=== PATIENT | male | born 1970 | race Caucasian/White ===

== ENCOUNTER 2016-06-28 03:09 | Emergency (ER) | payer OTHER ==
[2016-06-28 03:15] VITALS: RESP 18
[2016-06-28] MEDS ORDERED: predniSONE 20 MG TAB PO STA (03:54)
[2016-06-28] MEDS ORDERED: HYDROcodone/APAP 5-325MG 1 EACH TAB PO STA (03:56)
[2016-06-28] MEDS ORDERED: IBUPROFEN 800 MG TAB PO STA (03:56)
--- NOTE | 2016-06-28 04:33 | ED ---
Extremity Problem HPI - General Chief complaint: Extremity Problem,Nontraumatic Stated complaint: arm pain/numbness Time Seen by Provider: 06/28/16 03:18 Source: patient Mode of arrival: ambulatory Limitations: no limitations - History of Present Illness Initial comments: This patient is 45-year-old man who presents for a reevaluation of his right elbow. The patient states that he had some swelling there developed over the past few days, and had an seen in clinic. He was told that he had bursitis of his elbow. He states that he had not received any treatment for this however. The patient states that yesterday at work he had been using a hammer drill and that this vibration seem to make his right elbow worse and now the range of motion is limited. He states that the swelling at the elbow has gone down, but the pain continues. MD Complaint: extremity swelling, joint paint -: days(s) Location: right, elbow Severity scale (1-10): 7 Quality: aching, constant Consistency: constant Improves with: nothing Worsens with: palpation, other (Work) Associated Symptoms: denies other symptoms - Related Data Home Medications Medication Instructions Recorded Confirmed Allopurinol [Zyloprim] 300 mg PO DAILY 06/28/16 06/28/16 Atenolol/Chlorthalidone 1 each PO DAILY 06/28/16 06/28/16 [Atenolol-Chlorthalidone 50-25] Indomethacin [Indocin] 50 mg PO TID PRN 06/28/16 06/28/16 Lisinopril 40 mg PO DAILY 06/28/16 06/28/16 Previous Rx's Medication Instructions Recorded Hydrocodone/Acetaminophen [[place] 1 each PO Q6HR PRN #20 tab 06/28/16 5-325] Ibuprofen [Motrin] 800 mg PO Q8HR PRN #20 tab 06/28/16 predniSONE 60 mg PO DAILY #30 tab 06/28/16 Allergies Allergy/AdvReac Type Severity Reaction Status Date / Time Penicillins Allergy Rash/Hives Verified 06/28/16 03:14 Review of Systems ROS Statement: Those systems with pertinent positive or pertinent negative responses have been documented in the HPI. ROS Other: All systems not noted in ROS Statement are negative. Constitutional: Denies: fever, chills, weakness Respiratory: Denies: cough, dyspnea Cardiovascular: Denies: chest pain, palpitations Musculoskeletal: Reports: arthralgia Skin: Denies: rash Neurological: Reports: paresthesias Past Medical History Past Medical History: Hyperlipidemia Additional Past Medical History / Comment(s): Gout History of Any Multi-Drug Resistant Organisms: None Reported Past Surgical History: Hernia Repair, Orthopedic Surgery Additional Past Surgical History / Comment(s): Right shoulder surgery Past Psychological History: No Psychological Hx Reported Smoking Status: Never smoker Past Alcohol Use History: None Reported Past Drug Use History: None Reported General Exam Limitations: no limitations General appearance: alert, in no apparent distress Respiratory exam: Present: normal lung sounds bilaterally. Absent: respiratory distress, wheezes, rales, rhonchi, stridor Cardiovascular Exam: Present: regular rate, normal rhythm, normal heart sounds. Absent: systolic murmur, diastolic murmur, rubs, gallop Right Shoulder Exam: Present: normal inspection, full ROM, other (Old surgical scar over the distal clavicle). Absent: tenderness, swelling, abrasion, laceration, ecchymosis, deformity, crepitus, dislocation, erythema, tenderness over AC joint Upper Arm exam: Present: normal inspection, full ROM Elbow exam: Present: tenderness, swelling, other (The patient does have some fluid in the right olecranon bursa. There is tenderness. There is some mild warmth but no real erythema.). Absent: full ROM (Patient has decreased flexion and extension of the elbow. He is able to rotate.), abrasion, laceration, ecchymosis, deformity, crepitus, dislocation, erythema, pain w/ pronation/ supination, tenderness over radial head Forearm Wrist exam: Present: normal inspection, full ROM. Absent: tenderness, swelling, abrasion, laceration, ecchymosis, deformity, crepitus, dislocation, erythema, tenderness over anatomical snuff box, pain with axial thumb loading Hand Wrist exam: Present: normal inspection, full ROM Neurological exam: Present: alert. Absent: motor sensory deficit Skin exam: Present: warm, dry, intact, normal color. Absent: rash Course Vital Signs 06/28/16 06/28/16 03:11 04:46 Temperature 97.7 F 98.1 F Pulse Rate 76 67 Respiratory 18 18 Rate Blood Pressure 195/103 162/98 O2 Sat by Pulse 97 98 Oximetry Medical Decision Making - Medical Decision Making Patient's 45-year-old man presenting for reevaluation of his right elbow pain. He does definitely have some right olecranon bursitis. I do have a concern for the patient's decreased range of motion at the right elbow. Given the decreased range of motion there is concern for possible early septic arthritis, however the patient does not have a fever. Given the overlying bursitis I am reluctant to attempt arthrocentesis. Patient will be given medication for the bursitis and [facility] morning to have a reassessment. I discussed return parameters, he will definitely return here should he have any worsening, including fever, erythema or warmth of the right elbow. Disposition Clinical Impression: Olecranon bursitis, Gout Disposition: HOME SELF-CARE Condition: Fair Instructions: Gout (ED), Elbow Bursitis (ED) Prescriptions: Hydrocodone/Acetaminophen [[place] 5-325] 1 each PO Q6HR PRN #20 tab PRN Reason: Pain Ibuprofen [Motrin] 800 mg PO Q8HR PRN #20 tab PRN Reason: Pain predniSONE 60 mg PO DAILY #30 tab Referrals: González Daniel DO [Primary Care Provider] - 1-2 days
[2016-06-28 04:47] VITALS: BP 162/98; PULSE 67; TEMP 98.1
== END 2016-06-28 04:47 | disposition home or self-care (01) ==
LOC: EC 03:09
DX: M70.21 Olecranon bursitis, right elbow (principal); Z79.899 Other long term (current) drug therapy; Z88.0 Allergy status to penicillin; Y93.89 Activity, other specified
CPT/HCPCS: 99282; J7512

== ENCOUNTER → 2016-06-28 | Outpatient (CLI) | payer OTHER ==
--- NOTE | 2016-06-29 10:02 | XR ---
Right elbow HISTORY: Right elbow pain and swelling 3 views of the right elbow No comparisons There is no fracture or dislocation. Bone mineralization, joint spaces and alignment are maintained. There may be an elbow joint effusion. IMPRESSION: Possible elbow joint effusion, consider elbow MRI
== END | disposition home or self-care (01) ==
LOC: RADXRYALE 15:16
PROVIDERS: ATTEND Physician Assistant Medical
DX: M25.521 Pain in right elbow (principal)

== ENCOUNTER 2017-02-05 08:13 | Day surgery (SDC) | payer BC, OTHER ==
[2017-02-01 09:13] VITALS: BMI 32.1
[~2017-02-05 08:13] MED LIST: DEXAMETHASONE SOD PHOSPHATE 10 MG/ML 1 ML VIAL IV ONE; HYDROmorphone 0.5 MG/0.5 ML SYRINGE IVP PRN; LACTATED RINGERS 1,000 ML IV SCH; MIDAZOLAM 2 MG/2 ML VIAL IV PRN; ONDANSETRON 4 MG/2 ML VIAL IVP ONE; Pre Op ABX Message 1 EACH MISC MISCELLANE ONE; SCOPOLAMINE 1.5MG/72HR PATCH TRANSDERM ONE
[2017-02-05] MEDS ORDERED: LIDOCAINE 1% 20 ML VIAL (10MG/ML) FOR IV START INTRADERMA ONE (08:58)
[2017-02-05] MEDS ORDERED: SODIUM CHLORIDE 0.9% 1,000 ML IV ONE ×2 (08:58→10:35)
[2017-02-05 09:24] LABS: Glucose,Whole Blood 92 mg/dL (75-99)
[2017-02-05] MEDS ORDERED: LIDOCAINE 1% INJ 10MG/ML (20 ML MDV) ONE (09:57)
[2017-02-05] MEDS ORDERED: SUCCINYLCHOLINE CHLORIDE VIAL 200 MG/10 ML VIAL IV ONE (09:57)
[2017-02-05] MEDS ORDERED: MIDAZOLAM 2 MG/2 ML VIAL ONE (09:57)
[2017-02-05] MEDS ORDERED: ePHEDrine SULFATE/0.9% NACL/PF 50 MG/5 ML SYRINGE IV ONE (09:57)
[2017-02-05] MEDS ORDERED: fentaNYL (PF) 50 MCG/ML 2 ML AMP ONE (09:57)
[2017-02-05] MEDS ORDERED: PROPOFOL 10 MG/ML 20 ML VIAL IV ONE (09:57)
[2017-02-05] MEDS ORDERED: SODIUM CHLORIDE 0.9% 50 ML with ceFAZolin 2,000 MG IV ONE ×2 (10:20)
[2017-02-05] MEDS ORDERED: LACTATED RINGERS 1,000 ML IV ONE (10:35)
[2017-02-05] MEDS ORDERED: BUPIVACAINE (PF) 0.5% 30 ML VIAL SQ ONE (10:38)
[2017-02-05 11:15] VITALS: TEMP 97
[2017-02-05] MEDS ORDERED: HYDROcodone/APAP 5-325MG 1 EACH TAB PO ONE ×2 (12:06→13:00)
[2017-02-05 12:25] VITALS: RESP 18
[2017-02-05 13:39] VITALS: BP 124/77; PULSE 77
--- NOTE | 2017-02-08 13:17 | OP ---
OPERATIVE REPORT DATE OF SERVICE: 02/05/2017 SURGEON: Damián Basurto Do PREOPERATIVE DIAGNOSIS:: Torn right medial meniscus, torn anterior horn of lateral meniscus, and degenerative joint disease of the Right knee. 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 ESTIMATED BLOOD LOSS:: SPECIMEN TAKEN:: PROCEDURE: The patient was taken to the operative suite and placed in supine position. General inhalation anesthesia was performed by the department of anesthesiology. A Betadine prep was carried out over the right knee, mid thigh to mid calf and was placed in the leg jacobs. trocars inserted and irrigation of the joint performed. The arthroscope was inserted into lateral anterior portal and direct visualization of the medial compartment was noted. There was minimal degenerative tear around the area of the medial meniscus. This was probe. There was evidence of moderate prolapse of this meniscus. The meniscal shaver was utilizing in dissection the peripheral tearing at this time. The medial compartment was inspected and had evidence of degenerative joint disease. Medial femoral condyle was noted. The area showed grade 2 to 3 chondromalacia. The area was shaved and smooth with the meniscal resector. Further inspection of the suprapatellar area was carried out on the border of the patella. Gentle shaving was carried out and appeared to be a grade 3 chondromalacia patellofemoral. Inspection of lateral meniscus revealed no evidence of tear with degenerative changes anteriorly. All instruments were removed following irrigation of the joint. Portal incisions were approximated with 3-0 Vicryl suture. Betadine, Adaptic and sterile pressure dressing was applied. The patient was transferred to the recovery room in satisfactory postop condition. GROSS PATHOLOGY: There is evidence of degenerative changes in both anterior horn of the lateral meniscus and portion of the right medial meniscus and grade 2 to 3 chondromalacia medial femoral condyle and patella femoral. MMODL / IJN: [id number] / MTDD
== END 2017-02-05 14:17 | disposition home or self-care (01) ==
LOC: OR 08:13
PROVIDERS: ATTEND Orthopaedic Surgery
DX: S83.241A Other tear of medial meniscus, current injury, right knee, initial encounter (principal); S83.281A Other tear of lateral meniscus, current injury, right knee, initial encounter; M17.11 Unilateral primary osteoarthritis, right knee; M22.41 Chondromalacia patellae, right knee; I10 Essential (primary) hypertension; Z79.899 Other long term (current) drug therapy; Z88.0 Allergy status to penicillin; W10.9XXA Fall (on) (from) unspecified stairs and steps, initial encounter
CPT/HCPCS: 29880; J2250; J0330; J1100; J2405; J2001; J3010; J0690; J2704

== ENCOUNTER 2019-06-16 08:27 | Day surgery (SDC) | payer BC, MEDICARE ==
[2019-06-12 16:06] VITALS: BMI 32.8
[~2019-06-16 08:27] MED LIST changes: -DEXAMETHASONE SOD PHOSPHATE 10 MG/ML 1 ML VIAL IV ONE; -HYDROmorphone 0.5 MG/0.5 ML SYRINGE IVP PRN; -MIDAZOLAM 2 MG/2 ML VIAL IV PRN; -ONDANSETRON 4 MG/2 ML VIAL IVP ONE; -Pre Op ABX Message 1 EACH MISC MISCELLANE ONE; -SCOPOLAMINE 1.5MG/72HR PATCH TRANSDERM ONE
[2019-06-16 08:55] VITALS: RESP 16; TEMP 96.7
[2019-06-16] MEDS ORDERED: LIDOCAINE 1% 20 ML VIAL (10MG/ML) FOR IV START INTRADERMA ONE (08:56)
[2019-06-16] MEDS ORDERED: KETOROLAC 30 MG/ML 1 ML VIAL ONE (09:08)
[2019-06-16] MEDS ORDERED: LIDOCAINE 1% INJ 10MG/ML (20 ML MDV) ONE (09:08)
[2019-06-16] MEDS ORDERED: PROPOFOL 10 MG/ML 20 ML VIAL IV ONE (09:08)
--- NOTE | 2019-06-16 09:27 | P.GSHP ---
History of Present Illness H&P Date: 06/16/19 Chief Complaint: Gastritis, screening colonoscopy Is a 48-year-old male who presents today for EGD and colonoscopy. Patient has had some epigastric pain. He is also presents for screening colonoscopy. He's never colonoscopy before. Past Medical History Past Medical History: Hyperlipidemia, Hypertension, Renal Disease Additional Past Medical History / Comment(s): Gout History of Any Multi-Drug Resistant Organisms: None Reported Past Surgical History: Hernia Repair, Orthopedic Surgery Additional Past Surgical History / Comment(s): Right shoulder surgery Past Anesthesia/Blood Transfusion Reactions: No Reported Reaction Smoking Status: Never smoker - Past Family History Father Family Medical History: Renal Disease Medications and Allergies Home Medications Medication Instructions Recorded Confirmed Type Acetaminophen [Tylenol Arthritis] 650 mg PO DAILY PRN 06/12/19 06/16/19 History Losartan-Hctz 50-12.5 mg [Hyzaar 1 tab PO DAILY 06/12/19 06/16/19 History 50-12.5] Naproxen Sodium [Aleve] 220 mg PO DAILY PRN 06/12/19 06/12/19 History Allergies Allergy/AdvReac Type Severity Reaction Status Date / Time lisinopril Allergy kidney Verified 06/16/19 08:55 damage Penicillins Allergy "doesnt do Verified 06/16/19 08:55 anything for me" Surgical - Exam Vital Signs Temp Pulse Resp BP Pulse Ox 96.7 F L 102 H 16 180/106 97 06/16/19 08:53 06/16/19 08:53 06/16/19 08:53 06/16/19 08:53 06/16/19 08:53 - General well developed, well nourished, no distress - Eyes PERRL - ENT normal pinna - Neck no masses - Respiratory normal expansion - Cardiovascular Rhythm: regular - Abdomen Abdomen: soft, non tender Assessment and Plan Assessment: Epigastric pain we'll perform EGD. Also perform initial screening colonoscopy.
--- NOTE | 2019-06-16 09:44 | P.OP ---
Date of Procedure: 06/16/19 Preoperative Diagnosis: Epigastric pain Screening colonoscopy Postoperative Diagnosis: Antral gastritis Esophagitis Hiatal hernia Procedure(s) Performed: EGD Colonoscopy Anesthesia: MAC Surgeon: Malachi Mercado Pathology: other (Antrum, esophagus) Condition: stable Disposition: PACU Description of Procedure: Patient's placed on the endoscopy table in the lateral position. He received IV sedation. The gastroscope placed oropharynx passed in the esophagus and into the stomach. Scope was placed through the pylorus. The first and second portion of the duodenum appeared normal. Scope was then brought back the antrum and this appeared mildly inflamed. Scope was then retroflexed and the remainder of the stomach appeared normal. There was a moderate size hiatal hernia. The GE junction was at 40 cm. The distal esophagus minimal inflamed a biopsies performed. The proximal esophagus appeared normal. Scope was withdrawn for patient. Next digital rectal exam was performed which revealed no rebound. Flexible clot scope was then placed patient anus passed throughout the entire colon. The ileocecal valve was visually is. The cecum, ascending and transverse colon appeared normal. In the descending and sigmoid colon there was diverticulosis. Scope was then brought back into the rectum and this appeared normal. Scope was withdrawn for patient.
[2019-06-16 10:01] VITALS: BP 123/87; PULSE 100
== END 2019-06-16 10:32 | disposition home or self-care (01) ==
LOC: ORWHC2ENDO 08:27
PROVIDERS: ATTEND Surgery
DX: Z12.11 Encounter for screening for malignant neoplasm of colon (principal); K57.30 Diverticulosis of large intestine without perforation or abscess without bleeding; K29.50 Unspecified chronic gastritis without bleeding; K21.0 Gastro-esophageal reflux disease with esophagitis; K44.9 Diaphragmatic hernia without obstruction or gangrene; I10 Essential (primary) hypertension; E78.5 Hyperlipidemia, unspecified; M10.9 Gout, unspecified; N28.9 Disorder of kidney and ureter, unspecified; M19.90 Unspecified osteoarthritis, unspecified site; Z79.899 Other long term (current) drug therapy; Z98.890 Other specified postprocedural states; Z88.0 Allergy status to penicillin; Z88.8 Allergy status to other drugs, medicaments and biological substances; Z84.1 Family history of disorders of kidney and ureter
CPT/HCPCS: 43239; 88305; G0121; J2001; J1885; J2704; 45378

== ENCOUNTER 2019-07-02 10:05 | Day surgery (SDC) | payer MEDICARE ==
[~2019-07-02 10:05] MED LIST changes: +DEXAMETHASONE SOD PHOSPHATE 10 MG/ML 1 ML VIAL IV ONE; +HEPARIN SODIUM,PORCINE 5,000 UNIT/ML 1 ML VIAL SQ ONE; -LACTATED RINGERS 1,000 ML IV SCH; +LIDOCAINE 1% 20 ML VIAL (10MG/ML) FOR IV START INTRADERMA PRN; +MIDAZOLAM 2 MG/2 ML VIAL IV PRN; +ONDANSETRON 4 MG/2 ML VIAL IVP ONE; +SCOPOLAMINE 1.5MG/72HR PATCH TRANSDERM ONE
[2019-07-02] MEDS: LACTATED RINGERS 1,000 ML IV SCH (11:00)
[2019-07-02 11:23] LABS: Calcium 9.7 mg/dL (8.4-10.2); Potassium 4.6 mmol/L (3.5-5.1)
--- NOTE | 2019-07-02 12:24 | P.GSHP ---
History of Present Illness H&P Date: 07/02/19 Chief Complaint: GERD Is a 48-year-old male referred from Dr. rubio. MThe patient has had long- standing problems with reflux esophagitis. The patient underwent recent EGD is found have evidence of esophagitis. Patient has been well informed on the pr ocedure of laparoscopic Fawad fundoplication. The patient is aware the risk of the conversion to the open procedure, risk of injury to the stomach, liver and spleen. The patient is also a risk of recurrent GERD and dysphagia symptoms. The patient understands there is a postoperative diet of full liquids for 2 weeks after surgery. Past Medical History Past Medical History: Hyperlipidemia, Hypertension, Renal Disease Additional Past Medical History / Comment(s): Gout, on steroid for neck pain- states woke up Sunday with stiff neck, "weak kidneys" History of Any Multi-Drug Resistant Organisms: None Reported Past Surgical History: Hernia Repair, Orthopedic Surgery Additional Past Surgical History / Comment(s): Right shoulder surgery, colon oscopy, arthroscopy rt knee surgery Past Anesthesia/Blood Transfusion Reactions: No Reported Reaction Additional Past Anesthesia/Blood Transfusion Reaction / Comment(s): on steroids for stiff neck-states can move neck ok Smoking Status: Never smoker - Past Family History Father Family Medical History: Renal Disease Medications and Allergies Home Medications Medication Instructions Recorded Confirmed Type Acetaminophen [Tylenol Arthritis] 650 mg PO DAILY PRN 06/12/19 07/02/19 History Losartan-Hctz 50-12.5 mg [Hyzaar 1 tab PO DAILY 06/12/19 07/02/19 History 50-12.5] Naproxen Sodium [Aleve] 220 mg PO DAILY PRN 06/12/19 07/02/19 History predniSONE [Deltasone] 20 mg PO TID 06/26/19 07/02/19 History Allergies Allergy/AdvReac Type Severity Reaction Status Date / Time lisinopril Allergy kidney Verified 07/02/19 10:42 damage Penicillins Allergy "doesnt do Verified 07/02/19 10:42 anything for me" Surgical - Exam Vital Signs Temp Pulse Resp BP Pulse Ox 98.0 F 98 17 160/106 96 07/02/19 10:48 07/02/19 10:48 07/02/19 10:48 07/02/19 10:48 02/26/20 10:48 - General well developed, well nourished, no distress - Eyes PERRL - ENT normal pinna - Neck no masses - Respiratory normal expansion - Cardiovascular Rhythm: regular - Abdomen Abdomen: soft, non tender Results - Labs 07/02/19 11:00 Abnormal Lab Results - Last 24 Hours (Table) 07/02/19 Range/Units 11:00 BUN 51 H (9-20) mg/dL Creatinine 2.71 H (0.66-1.25) mg/dL Diabetes panel 07/02/19 Range/Units 11:00 Sodium 140 (137-145) mmol/L Potassium 4.6 (3.5-5.1) mmol/L Chloride 106 (98-107) mmol/L Carbon Dioxide 23 (22-30) mmol/L BUN 51 H (9-20) mg/dL Creatinine 2.71 H (0.66-1.25) mg/dL Glucose 91 (74-99) mg/dL Calcium 9.7 (8.4-10.2) mg/dL Calcium panel 07/02/19 Range/Units 11:00 Calcium 9.7 (8.4-10.2) mg/dL Pituitary panel 07/02/19 Range/Units 11:00 Sodium 140 (137-145) mmol/L Potassium 4.6 (3.5-5.1) mmol/L Chloride 106 (98-107) mmol/L Carbon Dioxide 23 (22-30) mmol/L BUN 51 H (9-20) mg/dL Creatinine 2.71 H (0.66-1.25) mg/dL Glucose 91 (74-99) mg/dL Calcium 9.7 (8.4-10.2) mg/dL Adrenal panel 07/02/19 Range/Units 11:00 Sodium 140 (137-145) mmol/L Potassium 4.6 (3.5-5.1) mmol/L Chloride 106 (98-107) mmol/L Carbon Dioxide 23 (22-30) mmol/L BUN 51 H (9-20) mg/dL Creatinine 2.71 H (0.66-1.25) mg/dL Glucose 91 (74-99) mg/dL Calcium 9.7 (8.4-10.2) mg/dL Assessment and Plan Assessment: GERD. We'll perform laparoscopic Fawad fundal plication.
[2019-07-02] MEDS ORDERED: ROCURONIUM BROMIDE 10 MG/ML 5 ML VIAL IV ONE (12:35)
[2019-07-02] MEDS ORDERED: fentaNYL (PF) 50 MCG/ML 2 ML AMP ONE (12:35)
[2019-07-02] MEDS ORDERED: SUCCINYLCHOLINE CHLORIDE 100 MG/5 ML SYR IV ONE (12:35)
[2019-07-02] MEDS ORDERED: NEOSTIGMINE 1 MG/ML 10 ML VIAL ONE (12:35)
[2019-07-02] MEDS ORDERED: KETOROLAC 30 MG/ML 1 ML VIAL ONE (12:35)
[2019-07-02] MEDS ORDERED: MIDAZOLAM 2 MG/2 ML VIAL ONE (12:35)
[2019-07-02] MEDS ORDERED: GLYCOPYRROLATE 0.2 MG/ML 2 ML VIAL ONE (12:35)
[2019-07-02] MEDS ORDERED: LIDOCAINE 1% INJ 10MG/ML (20 ML MDV) ONE (12:35)
[2019-07-02] MEDS ORDERED: PROPOFOL 10 MG/ML 20 ML VIAL IV ONE (12:35)
[2019-07-02] MEDS ORDERED: ePHEDrine SULFATE/0.9% NACL/PF 50 MG/5 ML SYRINGE IV ONE (12:35)
[2019-07-02] MEDS ORDERED: BUPIVACAINE (PF) 0.25% 30 ML VIAL SQ ONE (12:39)
[2019-07-02] MEDS ORDERED: LACTATED RINGERS 1,000 ML IV ONE (12:55)
[2019-07-02] MEDS ORDERED: ONDANSETRON 4 MG/2 ML VIAL IVP PRN (13:40)
--- NOTE | 2019-07-02 13:40 | P.OP ---
Date of Procedure: 07/02/19 Preoperative Diagnosis: GERD Postoperative Diagnosis: GERD Procedure(s) Performed: Laparoscopic Fawad fundoplication Anesthesia: YNES Surgeon: Malachi Mercado Estimated Blood Loss (ml): 5 Pathology: none sent Condition: stable Disposition: PACU Description of Procedure: HThe patient was placed on the operating table in the supine position. The patient received general anesthesia. And was placed in dorsal lithotomy position. The patient was prepped and draped in the usual sterile fashion. The skin incision sites were anesthetized with 1% local Xylocaine. The skin was incised in the left periumbilical area and then using a blade less 5 mm trocar under direct visualization panel cavity was entered. After adequate insufflation the laparoscope was then placed into the peritoneal cavity. Next a 5 mm trochars placed in the right epigastric position. Another 5 millimeter trocar the right lateral position. Another 5 millimeter trocar in the left lateral position a 5 mm trocar is placed in the left epigastric position. And then the initial 5 mm trocar was exchanged for a 10 mm trocar. The left lateral lobe liver was retracted. The hernia was seen. The crural defect was then dissected using the Harmonic scissors device. A 360 crural dissection was performed the esophagus stomach was reduced back into the peritoneal Cavity. The crural defect was then closed using 2-0 Ethibond suture. Next the fundus of the stomach was mobilized using the [place] scissors device. and then a 58- Irish bougie dilator was placed oropharynx passed into the esophagus and stomach the fundal plication wrap was then performed by grasping the fundus posteriorly and bringing it around the esophagus and stomach fundoplication was then performed using 2-0 Ethibond suture. Care was taken that the fundal location rested over top of the intra-abdominal esophagus. There was no injury seen to the stomach or esophagus. The dilator was then withdrawn. The abdomen was irrigated there is no bleeding seen. The trochars were then withdrawn and then skin incision sites were closed using 3-0 Monocryl suture Steri-Strips are applied. Patient thought procedure well and sent to recovery room in stable condition.
[2019-07-02] MEDS ORDERED: hydrALAZINE HCL 20 MG/ML 1 ML VIAL IVP PRN (14:03)
[2019-07-02] MEDS: HYDROmorphone 0.5 MG/0.5 ML SYRINGE IVP PRN ×2 (14:14→14:22)
[2019-07-02] MEDS ORDERED: LOSARTAN-HCTZ 50-12.5 MG 1 EACH TAB PO SCH (14:15)
[2019-07-02] MEDS: D5-0.45% NACL WITH KCL 20MEQ/L 1,000 ML IV SCH ×2 (16:05→21:59)
--- NOTE | 2019-07-02 16:42 | FL ---
EXAMINATION TYPE: FL esophagus cervic/pharynx DATE OF EXAM: 07/02/2019 LIMITED UGI-ESOPHAGRAM: CLINICAL HISTORY: Post Charanjit fundoplication. TECHNIQUE: Fluoroscopy time: 58 seconds Images: 20 FINDINGS: No extravasation of contrast is evident. There is moderate approaching severe hesitancy pas sing through the Charanjit fundoplication. There is complete emptying of the esophagus. The contrast ext ends into the stomach. A small amount of free air is identified on the overhead radiograph under the right diaphragm. Free a ir is not otherwise identified on fluoroscopy. IMPRESSION: No evidence of leak status post Charanjit fundoplication surgery earlier today. There is moderate severe narrowing of the distal esophagus through the Charanjit fundoplication during t his exam.
[2019-07-02] MEDS: HYDROmorphone 1 MG/ML 1 ML SYRINGE IVP PRN (17:18)
[2019-07-02] MEDS: predniSONE 20 MG TAB PO SCH (21:59)
[2019-07-03] MEDS: D5-0.45% NACL WITH KCL 20MEQ/L 1,000 ML IV SCH (05:38)
[2019-07-03] MEDS: HYDROmorphone 1 MG/ML 1 ML SYRINGE IVP PRN (05:44)
[2019-07-03] MEDS ORDERED: ENOXAPARIN 30 MG/0.3 ML SYRINGE SQ SCH (09:00)
[2019-07-03] MEDS: LACTATED RINGERS 1,000 ML IV SCH (09:02)
[2019-07-03] MEDS: predniSONE 20 MG TAB PO SCH (09:07)
[2019-07-03 09:12] VITALS: BP 155/99; PULSE 106; RESP 17; TEMP 97.5
--- NOTE | 2019-07-03 12:52 | P.DS ---
Providers Expected date of discharge: 07/03/19 Attending physician: Malachi Mercado Consults: 07/02/19 13:40 Consult Physician Routine Consulting Provider: Jacques Skinner Consult Reason/Comments: Medical management Do you want consulting provider notified?: Yes Primary care physician: Domenico De La Torre [facility] Course: 48-year-old male who underwent laparoscopic Fawad fundoplication with Dr. Maurizio leonard on 07/02/2019. Patient is doing well postoperatively without any immediate complications. Postoperative esophagram completed negative for leak or obstruction. Patient is tolerating liquid diet. Pain control on oral medications. Vital signs are stable. He is stable for discharge home today. Please see EMR for further hospital course details. Discharge Diagnosis 1. GERD, status post laparoscopic Fawad fundoplication Nurse practitioner note has been reviewed by physician. Signing provider agrees with the documented findings, assessment, and plan of care. Patient Condition at Discharge: Stable Plan - Discharge Summary Discharge Rx Participant: Yes New Discharge Prescriptions: New Hydrocodone/Acetaminophen [[place] 5-325] 1 tab PO Q6HR PRN #10 tab PRN Reason: Pain No Action Naproxen Sodium [Aleve] 220 mg PO DAILY PRN PRN Reason: Pain Acetaminophen [Tylenol Arthritis] 650 mg PO DAILY PRN PRN Reason: Pain Losartan-Hctz 50-12.5 mg [Hyzaar 50-12.5] 1 tab PO DAILY predniSONE [Deltasone] 20 mg PO TID Discharge Medication List Acetaminophen [Tylenol Arthritis] 650 mg PO DAILY PRN 06/12/19 [History] Losartan-Hctz 50-12.5 mg [Hyzaar 50-12.5] 1 tab PO DAILY 06/12/19 [History] Naproxen Sodium [Aleve] 220 mg PO DAILY PRN 06/12/19 [History] predniSONE [Deltasone] 20 mg PO TID 06/26/19 [History] Hydrocodone/Acetaminophen [[place] 5-325] 1 tab PO Q6HR PRN #10 tab 07/03/19 [Rx] Follow up Appointment(s)/Referral(s): Karla Fitzpatrick MD [STAFF PHYSICIAN] - 1 Week Domenico De La Torre DO [Primary Care Provider] - 1 Week Malachi Mercado MD [STAFF PHYSICIAN] - 2 Weeks Activity/Diet/Wound Care/Special Instructions: No driving while taking [place] No lifting over 10 pounds You may shower. No soaking or tub baths Very light activity until you are reevaluated at your follow up appointment with your surgeon Full liquid/soft diet for 2 weeks
[2019-07-03] MEDS ORDERED: HYDROcodone/APAP 5-325MG 1 EACH TAB PO PRN (13:34)
--- NOTE | 2019-07-03 14:08 | P.CONS ---
History of Present Illness - Reason for Consult Consult date: 07/03/19 Medical management - History of Present Illness This is a 48-year-old male patient of Dr. Moore with past medical history of hyperlipidemia, hypertension, chronic kidney disease stage III seen in the past by Dr. Fitzpatrick, gout. Patient states that he has been seen by Dr. Fitzpatrick in the past. Kidney disease without to be related to pain medications possibly from hypertension. Patient has been brought in the hospital under the care of Dr. Mercado status post Fawad fundoplication, postop day #1. Patient has had no postop complications. He denies any significant pain. He denies lightheadedness or dizziness, no nausea or vomiting. Patient underwent esophagram that showed no evidence of leak. There is moderate severe narrowing of the distal esophagus. The patient states he is scheduled for discharge home today. Discussed patient's chronic kidney disease with the patient and instructed to use caution utilizing prednisone, naproxen and blood pressure medicine. Patient advised to return to see Dr. Fitzpatrick. Patient states that he has only been on blood pressure medication for one month. Review of Systems Constitutional: Denies anorexia, Denies chills, Denies fatigue, Denies fever, Denies lethargy, Denies malaise, Denies poor appetite, Denies weight loss Eyes: denies blurred vision, denies pain Ears, nose, mouth and throat: Denies dysphagia, Denies headache, Denies nasal congestion, Denies nasal discharge, Denies sore throat, Denies vertigo Cardiovascular: Denies chest pain, Denies leg edema, Denies lightheadedness, Denies shortness of breath, Denies syncope Respiratory: Denies cough, Denies cough with sputum, Denies dyspnea, Denies excessive sputum, Denies hemoptysis, Denies home oxygen, Denies respiratory infections, Denies wheezing Gastrointestinal: Denies abdominal pain, Denies diarrhea, Denies loss of appetite, Denies nausea, Denies vomiting Genitourinary: Denies dysuria, Denies urinary frequency, Denies urinary retention Musculoskeletal: Denies frequent falls, Denies gait dysfunction, Denies muscle weakness, Denies myalgias Integumentary: Denies pruritus, Denies rash, Denies wounds Neurological: Denies change in mentation, Denies change in speech, Denies numbness, Denies weakness Psychiatric: Denies anxiety, Denies depression Endocrine: Denies fatigue, Denies weight change Past Medical History Past Medical History: Hyperlipidemia, Hypertension, Renal Disease Additional Past Medical History / Comment(s): Gout, on steroid for neck pain- states woke up Sunday with stiff neck, "weak kidneys" History of Any Multi-Drug Resistant Organisms: None Reported Past Surgical History: Hernia Repair, Orthopedic Surgery Additional Past Surgical History / Comment(s): Right shoulder surgery, colonoscopy, arthroscopy rt knee surgery, Fawad fundoplication Past Anesthesia/Blood Transfusion Reactions: No Reported Reaction Additional Past Anesthesia/Blood Transfusion Reaction / Comm: on steroids for stiff neck-states can move neck ok Past Psychological History: No Psychological Hx Reported Smoking Status: Never smoker Past Alcohol Use History: Rare Additional Past Alcohol Use History / Comment(s): The patient is a lifelong nonsmoker. No marijuana use, occasional alcohol use. Patient is single. 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 Past Drug Use History: None Reported - Past Family History Father Family Medical History: Renal Disease Additional Family Medical History / Comment(s): Father at age 70 from a bowel aortic aneurysm rupture. He does have a history of kidney disease and was on dialysis. Mother Additional Family Medical History / Comment(s): Mother is alive with no major medical problems. Sister(s) Additional Family Medical History / Comment(s): Patient has one sister with history of hypertension. Patient does not have any brothers. Patient has 3 children with no major medical problems. Medications and Allergies Home Medications Medication Instructions Recorded Confirmed Type Acetaminophen [Tylenol Arthritis] 650 mg PO DAILY PRN 06/12/19 07/02/19 History Losartan-Hctz 50-12.5 mg [Hyzaar 1 tab PO DAILY 06/12/19 07/02/19 History 50-12.5] Naproxen Sodium [Aleve] 220 mg PO DAILY PRN 06/12/19 07/02/19 History predniSONE [Deltasone] 20 mg PO TID 06/26/19 07/02/19 History Hydrocodone/Acetaminophen [[place] 1 tab PO Q6HR PRN #10 tab 07/03/19 Rx 5-325] Allergies Allergy/AdvReac Type Severity Reaction Status Date / Time lisinopril Allergy kidney Verified 07/02/19 10:42 damage Penicillins Allergy "doesnt do Verified 07/02/19 10:42 anything for me" Physical Exam Vitals: Vital Signs Temp Pulse Resp BP Pulse Ox 07/03/19 07:30 97.5 F L 106 H 17 155/99 94 L 07/03/19 00:38 98.1 F 116 H 16 158/107 95 07/02/19 19:06 97.9 F 105 H 16 115/70 92 L 07/02/19 17:05 78 151/94 95 07/02/19 15:35 90 153/97 93 L 07/02/19 15:20 81 135/90 93 L 07/02/19 14:50 97.8 F 79 162/95 94 L 07/02/19 14:31 85 16 151/90 96 07/02/19 14:16 76 16 154/92 97 07/02/19 14:01 74 16 150/83 98 Intake and Output 07/02/19 07/03/19 07/03/19 22:59 06:59 14:59 Intake Total 75 Balance 75 Intake: Oral 75 Gen: This is a 48-year-old male. Patient is resting in bed and appears to be comfortable and in no acute distress. HEENT: Head is atraumatic, normocephalic. Pupils equal, round. Sclerae is anicteric. NECK: Supple. No JVD. No lymphadenopathy. No thyromegaly. LUNGS: Clear to auscultation. No wheezes or rhonchi. No intercostal retractions. HEART: Regular rate and rhythm. No murmur. ABDOMEN: Soft. Bowel sounds are present. No masses. No tenderness. A puncture sites show no significant sign of infection, drainage. EXTREMITIES: No pedal edema. No calf tenderness. Dorsalis pedis palpable bilaterally. NEUROLOGICAL: Patient is awake, alert and oriented x3. Cranial nerves 2 through 12 are grossly intact. Results CBC & Chem 7: 07/02/19 11:00 Assessment and Plan Plan: 1. Moderate hiatal hernia status post Fawad fundoplication. Continue current pain management. 2. Hypertension. Patient is currently on Hyzaar. 3. Hyperlipidemia. 4. Chronic gout. Patient takes naproxen and prednisone as needed. 5. Chronic kidney disease stage III. Patient has been instructed to follow-up with Dr. Fitzpatrick. Patient has been instructed to be careful using his current medications as these will affect his kidneys. Discharge plan: home Impression and plan of care have been directed as dictated by the signing physician. Alison Nieves nurse practitioner acting as scribe for signing physician.
[2019-07-03 14:27] VITALS: BMI 33.1
== END 2019-07-03 14:13 | disposition home or self-care (01) ==
LOC: OR 10:05 → 4SSUR 13:58 → OR 07-03 14:13
PROVIDERS: ATTEND Surgery
DX: K21.0 Gastro-esophageal reflux disease with esophagitis (principal); K22.2 Esophageal obstruction; K44.9 Diaphragmatic hernia without obstruction or gangrene; E78.5 Hyperlipidemia, unspecified; I12.9 Hypertensive chronic kidney disease with stage 1 through stage 4 chronic kidney disease, or unspecified chronic kidney disease; N18.3 Chronic kidney disease, stage 3 (moderate); M1A.9XX0 Chronic gout, unspecified, without tophus (tophi); Z98.890 Other specified postprocedural states; Z84.1 Family history of disorders of kidney and ureter; Z79.52 Long term (current) use of systemic steroids; Z79.899 Other long term (current) drug therapy; Z88.0 Allergy status to penicillin; Z88.8 Allergy status to other drugs, medicaments and biological substances; Z82.49 Family history of ischemic heart disease and other diseases of the circulatory system
CPT/HCPCS: 86900; 86901; 80048; 86850; 74210; 43280; J2250; J1644; J1100; J2710; J0690; J2405; J2001; J3010; J1885; J1650; J1170 ×3; J0330; J2704; J7512 ×2; Q9967

== ENCOUNTER 2019-07-09 16:54 | Emergency (ER) | payer MEDICARE ==
[2019-07-09 17:00] VITALS: RESP 18
[2019-07-09 17:36] LABS: Amorphous Sediment,Urine Rare /hpf; Appearance,Urine Cloudy (Clear); Bacteria,Urine Occasional /hpf; Bilirubin,Urine Negative (Negative); Blood,Urine Moderate (Negative); Budding Yeast,Urine Few /hpf; Color,Urine Yellow; Glucose,Urine (UA) Negative (Negative); Hyaline Casts,Urine 3 /lpf (0-2); Ketones,Urine Negative (Negative); Leukocyte Esterase,Urine Trace (Negative); Mucus,Urine Rare /hpf; Nitrite,Urine Negative (Negative); PH, Urine 5.5 (5.0-8.0); Protein,Urine 2+ (Negative); RBC,Urine 33 /hpf (0-5); Specific Gravity,Urine 1.014 (1.001-1.035); Squamous Epithelial Cell,Urine <1 /hpf (0-4); Urobilinogen,Urine <2.0 mg/dL (<2.0); WBC,Urine 22 /hpf (0-5)
[2019-07-09] MEDS ORDERED: SODIUM CHLORIDE 0.9% 500 ML 500 ML IV ONE (17:57)
[2019-07-09 19:04] LABS: Basophils % (A) 0 %; Eosinophils # (A) 0.3 k/uL (0-0.7); Eosinophils % (A) 2 %; HCT 46.7 % (39.0-53.0); HGB 15.1 gm/dL (13.0-17.5); Lymphocytes # (A) 2.8 k/uL (1.0-4.8); Lymphocytes % (A) 16 %; MCH 27.3 pg (25.0-35.0); MCHC 32.4 g/dL (31.0-37.0); MCV 84.4 fL (80.0-100.0); Mean Platelet Volume 7.8; Monocytes # (A) 1.1 k/uL (0-1.0); Monocytes % (A) 6 %; Neutrophils # (A) 12.7 k/uL (1.3-7.7); Neutrophils % (A) 74 %; Platelet Count 337 k/uL (150-450); RBC 5.53 m/uL (4.30-5.90); RDW 13.8 % (11.5-15.5); WBC 17.2 k/uL (3.8-10.6)
--- NOTE | 2019-07-09 19:06 | ED ---
General Adult HPI - General Chief complaint: Abdominal Pain Stated complaint: blood in urine Time Seen by Provider: 07/09/19 17:12 Source: patient, RN notes reviewed, old records reviewed Mode of arrival: ambulatory Limitations: no limitations - History of Present Illness Initial comments: 48-year-old male patient past history significant for hypertension hyperlipidemia chronic kidney disease presents to ED for chief complaint of hematuria. Patient reports he did have a hiatal hernia repair done one week ago by Dr. Estrella. Patient reports that he has been having abdominal pain since. Reports that today he noticed his urine was dark with blood. Denies any other complaints at this time. Systemic: Pt denies fatigue, fever/chills, rash. Pt denies weakness, night sweats, weight loss. Neuro: Pt denies headache, visual disturbances, syncope or pre-syncope. HEENT: Pt denies ocular discharge or irritation, otalgia, rhinorrhea, pharyngitis or notable lymphadenopathy. Cardiopulmonary: Pt denies chest pain, SOB, heart palpitations, dyspnea on e xertion. Abdominal/GI: Pt denies n/v/d. : Pt denies dysuria, burning w/ urination, frequency/urgency. Denies new onset urinary or bowel incontinence. MSK: Pt denies myalgia, loss of strength or function in extremities. Neuro: Pt denies new onset weakness, paresthesias. - Related Data Home Medications Medication Instructions Recorded Confirmed Acetaminophen [Tylenol Arthritis] 650 mg PO DAILY PRN 06/12/19 07/02/19 Losartan-Hctz 50-12.5 mg [Hyzaar 1 tab PO DAILY 06/12/19 07/02/19 50-12.5] Naproxen Sodium [Aleve] 220 mg PO DAILY PRN 06/12/19 07/02/19 predniSONE [Deltasone] 20 mg PO TID 06/26/19 07/02/19 Previous Rx's Medication Instructions Recorded Hydrocodone/Acetaminophen [[place] 1 tab PO Q6HR PRN #10 tab 07/03/19 5-325] Cephalexin [Keflex] 500 mg PO Q12HR 7 Days #14 cap 07/09/19 Allergies Allergy/AdvReac Type Severity Reaction Status Date / Time lisinopril Allergy kidney Verified 07/09/19 17:00 damage Penicillins Allergy "doesnt do Verified 07/09/19 17:00 anything for me" Review of Systems ROS Statement: Those systems with pertinent positive or pertinent negative responses have been documented in the HPI. ROS Other: All systems not noted in ROS Statement are negative. Past Medical History Past Medical History: Hyperlipidemia, Hypertension, Renal Disease Additional Past Medical History / Comment(s): Gout, on steroid for neck pain- states woke up Sunday with stiff neck, "weak kidneys" History of Any Multi-Drug Resistant Organisms: None Reported Past Surgical History: Hernia Repair, Orthopedic Surgery Additional Past Surgical History / Comment(s): Right shoulder surgery, colonoscopy, arthroscopy rt knee surgery, Fawad fundoplication, Past Anesthesia/Blood Transfusion Reactions: No Reported Reaction Additional Past Anesthesia/Blood Transfusion Reaction / Comment(s): on steroids for stiff neck-states can move neck ok Past Psychological History: No Psychological Hx Reported Smoking Status: Never smoker Past Alcohol Use History: Rare Past Drug Use History: None Reported - Past Family History Father Family Medical History: Renal Disease Additional Family Medical History / Comment(s): Father at age 70 from a bowel aortic aneurysm rupture. He does have a history of kidney disease and was on dialysis. Mother Additional Family Medical History / Comment(s): Mother is alive with no major medical problems. Sister(s) Additional Family Medical History / Comment(s): Patient has one sister with history of hypertension. Patient does not have any brothers. Patient has 3 children with no major medical problems. General Exam - General Exam Comments Initial Comments: Constitutional: NAD, AOX3, Pt has pleasant affect. HEENT: NC/AT, trachea midline, neck supple, no lymphadenopathy. Posterior pharynx non erythematous, without exudates. External ears appear normal, without discharge. Mucous membranes moist. Eyes PERRLA, EOM intact. There is no scleral icterus. No pallor noted. Cardiopulmonary: RRR, no murmurs, rubs or gallops, no JVD noted. Lungs CTAB in anterior and posterior yeh. No peripheral edema. Abdominal exam: Abdomen soft and non-distended. Abdomen tender epigastric, right periumbilical region. Incision sites are clean dry without erythema or drainage.. Bowel sounds active in LLQ. No hepatosplenomegaly. No ecchymosis Neuro: CN II-XII grossly intact. No nuchal rigidity. No raccon eyes, no laura sign, no hemotympanum. No cervical spinal tenderness. MSK: No posterior calf tenderness bilaterally, homans sign negative bilaterally. Posterior tibialis and radial pulse +2 bilaterally. Sensation intact in upper and lower extremities. Full active ROM in upper and lower extremities, 5/5 stregnth. Limitations: no limitations Course Vital Signs 07/09/19 16:57 Temperature 97.8 F Pulse Rate 106 H Respiratory 18 Rate Blood Pressure 153/101 O2 Sat by Pulse 98 Oximetry Medical Decision Making - Medical Decision Making 48-year-old male patient past history significant for hypertension hyperlipidemia chronic kidney disease presents to ED for chief complaint of hematuria. Patient reports he did have a hiatal hernia repair done one week ago by Dr. Estrella. Patient reports that he has been having abdominal pain since. Reports that today he noticed his urine was dark with blood. Denies any other complaints at this time. Patient vital signs are stable, afebrile. Physical exam displayed: Abdomen soft and non-distended. Abdomen tender epigastric, right periumbilical region. Incision sites are clean dry without erythema or drainage. Liver investigations reveal leukocytosis of 17.2 likely reactive to recent surgery. Creatinine 2.69, BUN 46. Patient was administered fluid bolus. UA displayed +2 protein, 33 red blood cells, 22 white blood cells, occasional bacteria is noted. Patient will be treated for urinary tract infection. CT abdomen and pelvis without contrast was obtained due to the patient's kidney function, this displayed sigmoid diverticulosis without diverticulitis. Normal appendix, numerous renal cortical cysts, recommended outpatient ultrasound to rule out solid renal mass. Patient will be discharged with follow-up with Dr. Mojica tomorrow and will follow up with primary care provider. Will have outpatient ultrasound of kidneys return to ER if condition worsens. Case discussed with Dr. Padilla. - Lab Data Result diagrams: 07/09/19 18:47 07/09/19 18:47 Lab Results 07/09/19 07/09/19 07/09/19 Range/Units 17:04 18:47 18:47 WBC 17.2 H (3.8-10.6) k/uL RBC 5.53 (4.30-5.90) m/uL Hgb 15.1 (13.0-17.5) gm/dL Hct 46.7 (39.0-53.0) % MCV 84.4 (80.0-100.0) fL MCH 27.3 (25.0-35.0) pg MCHC 32.4 (31.0-37.0) g/dL RDW 13.8 (11.5-15.5) % Plt Count 337 (150-450) k/uL Neutrophils % 74 % Lymphocytes % 16 % Monocytes % 6 % Eosinophils % 2 % Basophils % 0 % Neutrophils # 12.7 H (1.3-7.7) k/uL Lymphocytes # 2.8 (1.0-4.8) k/uL Monocytes # 1.1 H (0-1.0) k/uL Eosinophils # 0.3 (0-0.7) k/uL Basophils # 0.0 (0-0.2) k/uL Sodium 137 (137-145) mmol/L Potassium 4.6 (3.5-5.1) mmol/L Chloride 106 (98-107) mmol/L Carbon Dioxide 23 (22-30) mmol/L Anion Gap 8 mmol/L BUN 46 H (9-20) mg/dL Creatinine 2.69 H (0.66-1.25) mg/dL Est GFR (CKD-EPI)AfAm 31 (>60 ml/min/1.73 sqM) Est GFR (CKD-EPI)NonAf 27 (>60 ml/min/1.73 sqM) Glucose 104 H (74-99) mg/dL Calcium 9.0 (8.4-10.2) mg/dL Total Bilirubin 0.3 (0.2-1.3) mg/dL AST 24 (17-59) U/L ALT 19 (4-49) U/L Alkaline Phosphatase 90 (38-126) U/L Total Protein 7.3 (6.3-8.2) g/dL Albumin 4.1 (3.5-5.0) g/dL Urine Color Yellow Urine Appearance Cloudy (Clear) Urine pH 5.5 (5.0-8.0) Ur Specific [place] 1.014 (1.001-1.035) Urine Protein 2+ H (Negative) Urine Glucose (UA) Negative (Negative) Urine Ketones Negative (Negative) Urine Blood Moderate H (Negative) Urine Nitrite Negative (Negative) Urine Bilirubin Negative (Negative) Urine Urobilinogen <2.0 (<2.0) mg/dL Ur Leukocyte Esterase Trace H (Negative) Urine RBC 33 H (0-5) /hpf Urine WBC 22 H (0-5) /hpf Ur Squamous Epith Cells <1 (0-4) /hpf Amorphous Sediment Rare H (None) /hpf Urine Bacteria Occasional H (None) /hpf Hyaline Casts 3 H (0-2) /lpf Urine Mucus Rare H (None) /hpf Urine Yeast (Budding) Few H (None) /hpf Disposition Clinical Impression: UTI (urinary tract infection), Hematuria, Postoperative abdominal pain Disposition: HOME SELF-CARE Condition: Stable Instructions (If sedation given, give patient instructions): Abdominal Pain ( ED), Hematuria (ED) Additional Instructions: Follow-up with Dr. Estrella tomorrow. Take antibiotics as directed. Follow-up with primary care provider tomorrow as well to have an outpatient ultrasound of the kidneys performed. Return to ER if condition worsens in any way. Prescriptions: Cephalexin [Keflex] 500 mg PO Q12HR 7 Days #14 cap Is patient prescribed a controlled substance at d/c from ED?: No Referrals: Domenico De La Torre DO [Primary Care Provider] - 1-2 days Malachi Mercado MD [STAFF PHYSICIAN] - 1-2 days
[2019-07-09 19:10] LABS: Albumin 4.1 g/dL (3.5-5.0); Potassium 4.6 mmol/L (3.5-5.1); Total Bilirubin 0.3 mg/dL (0.2-1.3); Total Protein 7.3 g/dL (6.3-8.2)
--- NOTE | 2019-07-09 19:26 | CT ---
EXAMINATION TYPE: CT abdomen pelvis wo con DATE OF EXAM: 07/09/2019 COMPARISON: None HISTORY: hematuria, post-op hernia repair CT DLP: 981.2 mGycm Automated exposure control for dose reduction was used. Lung bases are clear. There is no pleural effusion. Heart appears enlarged. There is no pericardial e ffusion. Liver spleen stomach gallbladder pancreas appear normal. Bile ducts are not dilated. There is no adrenal mass. There are numerous cysts in both kidneys that measure up to 2 cm. There is a single 4 cm cortical cyst lower pole right kidney. Some of the cysts have higher attenuation. There is no hydronephrosis. There is minimal renal parenchymal calcification. There is no retroperitoneal adenopathy. Ureters are not dilated. Bladder distends smoothly. There are multiple sigmoid diverticula. There is no diverticulitis. There is some high density material at the tip of the appendix. There is no sign of thickened appendix. The re is no sign of appendicitis. There is no mesenteric edema. There is no ascites or free air. There i s no evidence of bowel obstruction. There is no inguinal hernia. Lumbar vertebra have normal alignment. Bony pelvis is intact. There is no lumbar compression fracture . IMPRESSION: Sigmoid diverticulosis without diverticulitis. Normal appendix. Numerous renal cortical cysts. Some o f the cysts or atypical and ultrasound would be helpful to exclude a solid renal mass.
[2019-07-09] MEDS ORDERED: cefTRIAXone IN SWFI 1,000 MG/10 ML SYRINGE IVP STA (19:32)
[2019-07-09] MEDS ORDERED: CEPHALEXIN 500MG STARTER PACK 4 CAP BTL PO STA (20:05)
[2019-07-09] MEDS ORDERED: ACET/COD 300 MG/30 MG STARTER PACK 6 TAB BTL PO STA (20:13)
[2019-07-09 20:19] VITALS: BP 152/78; PULSE 83; TEMP 98.2
== END 2019-07-09 20:15 | disposition home or self-care (01) ==
LOC: EC 16:54
DX: N39.0 Urinary tract infection, site not specified (principal); G89.18 Other acute postprocedural pain; R10.9 Unspecified abdominal pain; K57.30 Diverticulosis of large intestine without perforation or abscess without bleeding; N28.1 Cyst of kidney, acquired; I12.9 Hypertensive chronic kidney disease with stage 1 through stage 4 chronic kidney disease, or unspecified chronic kidney disease; N18.9 Chronic kidney disease, unspecified; E78.5 Hyperlipidemia, unspecified; M10.9 Gout, unspecified; Z79.52 Long term (current) use of systemic steroids; Z79.899 Other long term (current) drug therapy; Z88.8 Allergy status to other drugs, medicaments and biological substances; Z88.0 Allergy status to penicillin; Z98.890 Other specified postprocedural states; Z87.19 Personal history of other diseases of the digestive system
CPT/HCPCS: 36415; 80053; 85025; 81001; 87086; 74176; 96374; 99284; J0696

== ENCOUNTER → 2022-01-11 | Outpatient (CLI) | payer MEDICARE ==
--- NOTE | 2022-01-13 16:11 | CT ---
EXAMINATION TYPE: CT abdomen w/o con CT DLP: 482 mGycm, Automated exposure control for dose reduction was used. DATE OF EXAM: 01/11/2022 10:33 AM COMPARISON: THIS EXAM WAS READ DURING PACS DOWNTIME, NO PRIORS AVAILABLE. CLINICAL INDICATION:Male, 51 years old with history of N28.1 CYST OF KIDNEY, ACQUIRED; TECHNIQUE: Axial CT of the abdomen. Sagittal and coronal [facility] Contrast used: None Oral contrast used: None FINDINGS: LOWER CHEST: Unremarkable ABDOMEN LIVER: Unremarkable GALLBLADDER AND BILE DUCTS: Unremarkable. PANCREAS: Unremarkable. SPLEEN: Unremarkable. ADRENAL GLANDS: Unremarkable. KIDNEYS AND URETERS: Bilateral renal cysts are seen some of which are subcentimeter. Evaluation limit ed without IV contrast for solid masses. There is at least one hyperdense renal cyst r measuring up t o 9 mm on the left measuring 70 Hounsfield units and consistent with proteinaceous cyst. No evidence of hydronephrosis or renal calculus. STOMACH AND BOWEL: No evidence of bowel obstruction. PERITONEUM: No evidence of pneumoperitoneum or free fluid. VASCULATURE: No evidence of aortic aneurysm. MUSCULOSKELETAL: No acute osseous abnormalities LYMPH NODES: No gross evidence for lymphadenopathy. SOFT TISSUE/ABDOMINAL WALL: Unremarkable IMPRESSION: Multiple bilateral renal cysts one of which on the left is hyperdense. Evaluation limited without IV contrast and without prior secondary to PACS downtime. Consider use of IV contrast and/or MRI in the future to ensure stability.
== END | disposition home or self-care (01) ==
LOC: RADCTMAIN 07:08
PROVIDERS: ATTEND Family Medicine
DX: N28.1 Cyst of kidney, acquired (principal)
CPT/HCPCS: 36415; 74160; 82565; 84520

== ENCOUNTER → 2022-03-14 | Outpatient (CLI) | payer MEDICARE ==
--- NOTE | 2022-03-14 10:22 | US ---
EXAMINATION TYPE: US kidneys/renal and bladder DATE OF EXAM: 03/14/2022 COMPARISON: NONE CLINICAL HISTORY: N18.5 CHRONIC KIDNEY DISEASE, STAGE 5. CKD stage 5 EXAM MEASUREMENTS: Right Kidney: 12.2 x 5.7 x 4.0 cm Left Kidney: 12.3 x 5.6 x 5.2 cm Right Kidney: Multiple cysts seen, cortical tissue not well visualized. Left Kidney: Multiple cysts seen cortical tissue not well visualized. Bladder: Anechoic Bilateral Jets seen: no IMPRESSION: 1. Bilateral cortical renal cysts. 2. Thinning of the renal cortices can be compatible some chronic renal failure.
== END | disposition home or self-care (01) ==
LOC: RADUSWWP 09:38
PROVIDERS: ATTEND Internal Medicine Nephrology
DX: N18.5 Chronic kidney disease, stage 5 (principal); N28.1 Cyst of kidney, acquired
CPT/HCPCS: 76770

== ENCOUNTER → 2022-12-06 | Outpatient (CLI) | payer MEDICARE | END | disposition home or self-care (01) | LOC: LABPAT 09:18 | PROVIDERS: ATTEND Surgery | DX: I51.7 Cardiomegaly (principal); R94.31 Abnormal electrocardiogram [ECG] [EKG] | CPT/HCPCS: 93005 ==

== ENCOUNTER 2022-12-08 10:45 | Day surgery (SDC) | payer MEDICARE ==
[2022-12-01 13:50] VITALS: BMI 29.9
[~2022-12-08 10:45] MED LIST changes: +ACETAMINOPHEN TAB 500 MG TAB PO PRN; -DEXAMETHASONE SOD PHOSPHATE 10 MG/ML 1 ML VIAL IV ONE; +DEXAMETHASONE SOD PHOSPHATE 4 MG/ML 1 ML VIAL IV ONE; -HEPARIN SODIUM,PORCINE 5,000 UNIT/ML 1 ML VIAL SQ ONE; +HEPARIN SODIUM,PORCINE/PF 5,000 UNIT/0.5 ML SYRINGE SQ PRN; +HYDROmorphone 0.5 MG/0.5 ML SYRINGE IVP PRN; +LACTATED RINGERS 1,000 ML IV SCH; +LIDOCAINE 1% (10MG/ML) FOR IV START INTRADERMA PRN; -LIDOCAINE 1% 20 ML VIAL (10MG/ML) FOR IV START INTRADERMA PRN; -MIDAZOLAM 2 MG/2 ML VIAL IV PRN; -SCOPOLAMINE 1.5MG/72HR PATCH TRANSDERM ONE
[2022-12-08] MEDS ORDERED: SODIUM CHLORIDE 0.9% 1,000 ML IV ONE (11:19)
--- NOTE | 2022-12-08 12:29 | P.GSHP ---
History of Present Illness H&P Date: 12/08/22 Chief Complaint: Renal failure 52-year-old male with history of renal failure. He has noticed gradual decline in his kidney function. He is interested in future kidney transplant. Here today for peritoneal dialysis catheter insertion. No history of abdominal surgeries. Past Medical History Past Medical History: Hyperlipidemia, Hypertension, Renal Disease Additional Past Medical History / Comment(s): gout History of Any Multi-Drug Resistant Organisms: None Reported Past Surgical History: Hernia Repair, Orthopedic Surgery Additional Past Surgical History / Comment(s): Right shoulder surgery, colonoscopy, arthroscopy rt knee, Fawad fundoplication, tumor removed from back Past Anesthesia/Blood Transfusion Reactions: No Reported Reaction Additional Past Anesthesia/Blood Transfusion Reaction / Comment(s): "takes a little extra for me" Past Psychological History: No Psychological Hx Reported Smoking Status: Never smoker Past Alcohol Use History: None Reported Past Drug Use History: None Reported - Past Family History Father Family Medical History: Renal Disease Additional Family Medical History / Comment(s): Father at age 70 from a bowel aortic aneurysm rupture. He does have a history of kidney disease and was on dialysis. Mother Additional Family Medical History / Comment(s): Mother is alive with no major medical problems. Sister(s) Additional Family Medical History / Comment(s): Patient has one sister with history of hypertension. Patient does not have any brothers. Patient has 3 children with no major medical problems. Medications and Allergies Home Medications Medication Instructions Recorded Confirmed Type Nf-Pt To Bring In Home Med List 12/01/22 History Atorvastatin Calcium 20 mg PO DAILY 12/08/22 12/08/22 History Cetirizine HCl [Zyrtec] 10 mg PO DAILY 12/08/22 12/08/22 History Ergocalciferol [Vitamin D2 (1250 1,250 mcg PO WEEKLY 12/08/22 12/08/22 History Mcg = 05201 Iu)] Furosemide [Lasix] 40 mg PO DAILY PRN 12/08/22 12/08/22 History Magnesium Oxide [Mag-Ox] 400 mg PO DAILY 12/08/22 12/08/22 History Sodium Bicarbonate Tab 650 mg PO BID 12/08/22 12/08/22 History allopurinoL 300 mg PO DAILY 12/08/22 12/08/22 History amLODIPine BESYLATE [Amlodipine 10 mg PO DAILY PRN 12/08/22 12/08/22 History Besylate] calcitrioL [Calcitriol] 0.5 mcg PO DAILY 12/08/22 12/08/22 History carvediloL [Coreg] 12.5 mg PO BID 12/08/22 12/08/22 History hydrALAZINE HCL 50 mg PO DAILY 12/08/22 12/08/22 History traMADol HCl [Ultram] 50 mg PO Q6H PRN #6 tab 12/08/22 Rx Allergies Allergy/AdvReac Type Severity Reaction Status Date / Time lisinopril AdvReac kidney Verified 12/08/22 11:16 damage Penicillins AdvReac "doesnt do Verified 12/08/22 11:16 anything for me" Surgical - Exam Vital Signs Temp Pulse Resp BP Pulse Ox 98.2 F 89 18 198/107 97 12/08/22 11:15 12/08/22 11:15 12/08/22 11:15 12/08/22 11:15 12/08/22 11:15 Physical exam: General: Well-developed, well-nourished HEENT: Normocephalic, sclerae nonicteric Abdomen: Nontender, nondistended Extremities: No edema Neuro: Alert and oriented Results - Labs 12/08/22 11:33 Diabetes panel 12/08/22 Range/Units 11:33 Potassium 4.7 (3.5-5.1) mmol/L Pituitary panel 12/08/22 Range/Units 11:33 Potassium 4.7 (3.5-5.1) mmol/L Adrenal panel 12/08/22 Range/Units 11:33 Potassium 4.7 (3.5-5.1) mmol/L Assessment and Plan (1) Renal failure Narrative/Plan: Will proceed with peritoneal dialysis catheter insertion. Risks of bleeding, infection, poor function, fluid leak, hernia, peritonitis, bladder and bowel injury reviewed. He understands and wishes to proceed. Current Visit: Yes Status: Acute Code(s): N19 - UNSPECIFIED KIDNEY FAILURE SNOMED Code(s): 19757213
[2022-12-08] MEDS ORDERED: PROPOFOL 10 MG/ML 20 ML VIAL IV ONE (12:36)
[2022-12-08] MEDS ORDERED: fentaNYL (PF) 50 MCG/ML 2 ML AMP ONE (12:36)
[2022-12-08] MEDS ORDERED: MIDAZOLAM 2 MG/2 ML VIAL ONE (12:36)
[2022-12-08] MEDS ORDERED: HYDROmorphone (PF) 1 MG/ML ONE (12:36)
[2022-12-08] MEDS ORDERED: BUPIVACAINE (PF) 0.25% 30 ML VIAL SQ ONE (12:57)
[2022-12-08] MEDS ORDERED: ACETAMINOPHEN TAB 325 MG TAB PO PRN (13:22)
[2022-12-08] MEDS ORDERED: NALOXONE 0.4 MG/ML 1 ML VIAL IV PRN (13:22)
[2022-12-08] MEDS ORDERED: traMADol 50 MG TAB PO PRN (13:22)
--- NOTE | 2022-12-08 13:24 | P.OP ---
Date of Procedure: 12/08/22 Procedure(s) Performed: PREOPERATIVE DIAGNOSIS: Renal failure POSTOPERATIVE DIAGNOSIS: Same PROCEDURE: Peritoneal dialysis catheter insertion SURGEON: Vinicio EBL: 5 mL ANESTHESIA: General COMPLICATIONS: None OPERATIVE PROCEDURE: The patient was placed in the operative table in the supine position. The abdomen was prepped and draped in usual sterile fashion. A small vertical incision was made in the left periumbilical location. Dissection down through the subcutaneous tissues took place using electrocautery. The anterior rectus was divided vertically using the scalpel. The rectus was bluntly. The posterior rectus was visualized. An 0 Vicryl pursestring was placed. A small opening in the posterior rectus fascia and peritoneum took place using a Metzenbaum scissors. There were no adhesions to the suture that was placed. The pigtail catheter was advanced into the pelvis over a stylette. No resistance was met. The inner cuff was secured to the fascia using the 0 Vicryl pursestring that was placed. The catheter was tunneled to an exit site in the left lateral lower quadrant. The catheter was connected to the 1 L bag of saline and approximated 800 mL of saline was easily introduced into the peritoneal cavity. The fluid was then allowed to evacuate. The majority of the fluid was returned. The anterior rectus fascia was then reapproximated using a running 0 Vicryl stitch. The subcutaneous tissues reprepped using 3-0 Vicryl sutures and the skin using 4-0 Monocryl sutures. The outpatient dialysis adapter was applied to the end of the catheter. Sterile dressings were then applied after skin glue was placed over the incision. DISPOSITION: Stable to recovery room
[2022-12-08 13:35] VITALS: TEMP 97.7
[2022-12-08 14:17] VITALS: RESP 16
[2022-12-08 15:26] VITALS: BP 159/82; PULSE 68
[2022-12-08 23:14] LABS: Hepatitis A Antibody IgM Nonreactive; Hepatitis B Core IgM Nonreactive; Hepatitis B Surface Antigen Nonreactive; Hepatitis C IgG Antibody Nonreactive
== END 2022-12-08 15:23 ==
LOC: OR 10:45
PROVIDERS: ATTEND Surgery
DX: N19 Unspecified kidney failure (principal); I10 Essential (primary) hypertension; E78.5 Hyperlipidemia, unspecified; M10.9 Gout, unspecified; Z98.890 Other specified postprocedural states; Z82.49 Family history of ischemic heart disease and other diseases of the circulatory system; Z79.899 Other long term (current) drug therapy
CPT/HCPCS: 80074; 84132; 49421; C1752; J2250; J1100; J0690; J2405; J3010; J1170; J2704; J1644

== ENCOUNTER 2022-12-09 22:16 | Emergency (ER) | payer MEDICARE ==
[2022-12-09] MEDS ORDERED: carvediloL 12.5 MG TAB PO STA (23:50)
[2022-12-09] MEDS ORDERED: MORPHINE SULFATE 4 MG/ML SYRINGE IVP STA (23:50)
[2022-12-10 00:22] LABS: Basophils # (A) 0.1 k/uL (0-0.2); Basophils % (A) 1 %; Eosinophils # (A) 0.4 k/uL (0-0.7); Eosinophils % (A) 3 %; HGB 9.8 gm/dL (13.0-17.5); Lymphocytes # (A) 1.4 k/uL (1.0-4.8); Lymphocytes % (A) 12 %; MCH 29.6 pg (25.0-35.0); MCHC 33.8 g/dL (31.0-37.0); MCV 87.6 fL (80.0-100.0); Mean Platelet Volume 8.4; Monocytes # (A) 0.5 k/uL (0-1.0); Monocytes % (A) 4 %; Neutrophils # (A) 8.9 k/uL (1.3-7.7); Neutrophils % (A) 79 %; Platelet Count 294 k/uL (150-450); RBC 3.31 m/uL (4.30-5.90); RDW 14.1 % (11.5-15.5); WBC 11.3 k/uL (3.8-10.6)
[2022-12-10 00:33] LABS: African American GFR (CKD) 9 (>60 ml/min/1.73 sqM); Anion Gap 10 mmol/L; Blood Urea Nitrogen 60 mg/dL (9-20); Calcium 7.2 mg/dL (8.4-10.2); Carbon Dioxide 17 mmol/L (22-30); Chloride 112 mmol/L (98-107); Glucose 88 mg/dL (74-99); Non-African American GFR(CKD) 7 (>60 ml/min/1.73 sqM); Partial Thromboplastin Time 24.4 sec (22.0-30.0); Potassium 4.7 mmol/L (3.5-5.1); Prothrombin Time 10.9 sec (9.0-12.0); Sodium 139 mmol/L (137-145)
[2022-12-10 02:03] VITALS: RESP 18
--- NOTE | 2022-12-10 02:55 | CT ---
EXAM: CT Abdomen and Pelvis Without Intravenous Contrast CLINICAL HISTORY: ITS.REASON CT Reason: recent dialysis port placed, abd pain TECHNIQUE: Axial computed tomography images of the abdomen and pelvis without intravenous contrast. CTDI is 14.1 mGy and DLP is 846.1 mGy-cm. This CT exam was performed using one or more of the following dose reduction techniques: automated exposure control, adjustment of the mA and/or kV according to patient size, and/or use of iterative reconstruction technique. COMPARISON: No relevant prior studies available. FINDINGS: Lung bases: Unremarkable. No mass. No consolidation. Pleural space: Trace left pleural effusion. ABDOMEN: Liver: Unremarkable. Gallbladder and bile ducts: Unremarkable. No calcified stones. No ductal dilation. Pancreas: Unremarkable. No ductal dilation. Spleen: Unremarkable. No splenomegaly. Adrenals: Unremarkable. No mass. Kidneys and ureters: Extensive cysts were the bilateral kidneys, correlate replaces a kidney disease. No obstructing stones. No hydronephrosis. Stomach and bowel: Diverticulosis, without acute diverticulitis. No small bowel obstruction. No free intraperitoneal air. PELVIS: Appendix: No findings to suggest acute appendicitis. Bladder: Unremarkable. No stones. Reproductive: Unremarkable as visualized. ABDOMEN and PELVIS: Intraperitoneal space: Unremarkable. No free air. No significant fluid collection. Bones/joints: Degenerative changes of the spine. No acute fracture. No dislocation. Soft tissues: Mild skin thickening and subcutaneous induration at the umbilicus, correlate for cellulitis. Vasculature: Atherosclerotic changes of the aorta. No abdominal aortic aneurysm. Lymph nodes: Unremarkable. No enlarged lymph nodes. Tubes, lines and devices: Peritoneal dialysis catheter terminates in the pelvis. IMPRESSION: 1. Mild skin thickening and subcutaneous induration at the umbilicus, correlate for cellulitis. 2. Trace left pleural effusion. 3. Peritoneal dialysis catheter terminates in the pelvis. 4. Extensive cysts were the bilateral kidneys, correlate replaces a kidney disease. 5. Diverticulosis, without acute diverticulitis. No small bowel obstruction. No free intraperitoneal air.
[2022-12-10] MEDS ORDERED: SULFAMETHOX-TMP 800-160MG 1 EACH TAB PO STA (03:34)
--- NOTE | 2022-12-10 03:37 | ED ---
General Adult HPI - General Chief complaint: Abdominal Pain Stated complaint: Post-Op Bleeding Time Seen by Provider: 12/09/22 23:11 Source: patient, RN notes reviewed, old records reviewed Mode of arrival: ambulatory Limitations: no limitations - History of Present Illness Initial comments: Patient is a 52-year-old male who presents emergency Department over concern for dialysis catheter site pain. Patient recently had peritoneal dialysis catheter placed by Dr. Gama yesterday. Was instructed to come the emergency department if there is any bleeding or increased pain. States it hurts when he coughs at the site. Has some pain around the site as well. Has some bloody discharge as well. Does not need change dressing. Patient has known CK D and this was the initial dialysis catheter. He is due to start dialysis next week. Denies any other acute complaints at this time include fevers, chills, cough, chest pain. Denies any nausea, vomiting, diarrhea, constipation. Presents for reevaluation. - Related Data Home Medications Medication Instructions Recorded Confirmed Nf-Pt To Bring In Home Med List 12/01/22 Atorvastatin Calcium 20 mg PO DAILY 12/08/22 12/08/22 Cetirizine HCl [Zyrtec] 10 mg PO DAILY 12/08/22 12/08/22 Ergocalciferol [Vitamin D2 (1250 1,250 mcg PO WEEKLY 12/08/22 12/08/22 Mcg = 14314 Iu)] Furosemide [Lasix] 40 mg PO DAILY PRN 12/08/22 12/08/22 Magnesium Oxide [Mag-Ox] 400 mg PO DAILY 12/08/22 12/08/22 Sodium Bicarbonate Tab 650 mg PO BID 12/08/22 12/08/22 allopurinoL 300 mg PO DAILY 12/08/22 12/08/22 amLODIPine BESYLATE [Amlodipine 10 mg PO DAILY PRN 12/08/22 12/08/22 Besylate] calcitrioL [Calcitriol] 0.5 mcg PO DAILY 12/08/22 12/08/22 carvediloL [Coreg] 12.5 mg PO BID 12/08/22 12/08/22 hydrALAZINE HCL 50 mg PO DAILY 12/08/22 12/08/22 Previous Rx's Medication Instructions Recorded traMADol HCl [Ultram] 50 mg PO Q6H PRN #6 tab 08/04/23 Sulfamethox-Tmp 800-160Mg [Bactrim 1 tab PO Q12HR 5 Days #10 tab 12/10/22 DS 800-160 mg] Allergies Allergy/AdvReac Type Severity Reaction Status Date / Time lisinopril AdvReac kidney Verified 12/08/22 11:16 damage Penicillins AdvReac "doesnt do Verified 12/08/22 11:16 anything for me" Review of Systems ROS Statement: Those systems with pertinent positive or pertinent negative responses have been documented in the HPI. Review of Systems: CONST: Denies fever EYES: Denies blurry vision ENT: Denies nasal congestion C/V: Denies Chest pain RESP: Denies shortness of breath GI: Endorses abdominal pain : Denies dysuria SKIN: Denies rash. MSK: Denies joint pain. NEURO: Denies headache ROS Other: All systems not noted in ROS Statement are negative. Past Medical History Past Medical History: Dialysis, Hyperlipidemia, Hypertension, Renal Disease Additional Past Medical History / Comment(s): gout History of Any Multi-Drug Resistant Organisms: None Reported Past Surgical History: Hernia Repair, Orthopedic Surgery Additional Past Surgical History / Comment(s): Right shoulder surgery, colonoscopy, arthroscopy rt knee, Fawad fundoplication, tumor removed from back Past Anesthesia/Blood Transfusion Reactions: No Reported Reaction Additional Past Anesthesia/Blood Transfusion Reaction / Comment(s): "takes a little extra for me" Past Psychological History: No Psychological Hx Reported Smoking Status: Never smoker Past Alcohol Use History: None Reported Past Drug Use History: None Reported - Past Family History Father Family Medical History: Renal Disease Additional Family Medical History / Comment(s): Father at age 70 from a bowel aortic aneurysm rupture. He does have a history of kidney disease and was on dialysis. Mother Additional Family Medical History / Comment(s): Mother is alive with no major medical problems. Sister(s) Additional Family Medical History / Comment(s): Patient has one sister with history of hypertension. Patient does not have any brothers. Patient has 3 children with no major medical problems. General Exam - General Exam Comments Initial Comments: General: Appears in no acute distress. HEAD: Normal with no signs of head trauma. EYES: PERRLA, EOMI, conjunctiva normal, no discharge. ENT: Hearing grossly intact, normal oropharynx. RESPIRATORY: Clear breath sounds bilaterally. No wheezes, rales, or rhonchi. C/V: Regular rate and rhythm. S1 and S2 auscultated,peripheral pulses 2+ and intact throughout ABD: Abd is soft, nontender, nondistended. Just very mild tenderness around the incision site where there is a small amount of blood located on the dressing. It is not saturated. Minimal tenderness. No guarding. No peritoneal signs. No rebound tenderness. EXT: Normal range of motion, no obvious deformity SKIN: No rashes or lesions observed on exposed skin. NEURO: Alert and oriented 4. Limitations: no limitations Course Vital Signs 12/09/22 12/09/22 12/10/22 22:30 23:08 01:00 Temperature 98.8 F 97.8 F Pulse Rate 82 90 86 Respiratory 18 20 18 Rate Blood Pressure 210/111 186/101 182/110 O2 Sat by Pulse 97 97 97 Oximetry 12/10/22 12/10/22 12/10/22 02:00 03:00 03:50 Temperature 97.9 F Pulse Rate 88 85 Respiratory 18 18 Rate Blood Pressure 177/105 169/103 170/107 O2 Sat by Pulse 97 97 Oximetry Medical Decision Making - Medical Decision Making Was pt. sent in by a medical professional or institution (, PA, MUTUAL FUNDS AGENT, urgent care, hospital, or prison...) When possible be specific @ -No Did you speak to anyone other than the patient for history (EMS, parent, family, police, friend...)? What history was obtained from this source @ -No Did you review nursing and triage notes (agree or disagree)? Why? @ -I reviewed and agree with nursing and triage notes Were old charts reviewed (outside hosp., previous admission, EMS record, old EKG, old radiological studies, urgent care reports/EKG's, prison records)? Report findings @ -Reviewed charts from surgery yesterday. Reviewed old labs. Differential Diagnosis (chest pain, altered mental status, abdominal pain women, abdominal pain men, vaginal bleeding, weakness, fever, dyspnea, syncope, headache, dizziness, GI bleed, back pain, seizure, CVA, palpatations, mental health, musculoskeletal)? @ -Postop pain, postop infection, postop complication, CK D. This list is not conclusive. EKG interpreted by me (3pts min.). @ -None done X-rays interpreted by me (1pt min.). @ -None done CT interpreted by me (1pt min.). @ -CT abdomen and pelvis reveals no obvious acute intra-abdominal process. Catheter appears to be in place. Radiology is seeing some induration suggestive of possible cellulitis from the site. Could just be inflammation. U/S interpreted by me (1pt. min.). @ -None done What testing was considered but not performed or refused? (CT, X-rays, U/S, labs)? Why? @ -None What meds were considered but not given or refused? Why? @ -None Did you discuss the management of the patient with other professionals (professionals i.e. Dr., PA, MUTUAL FUNDS AGENT, lab, RT, psych nurse, social welfare clerk, doctor of naprapathy, teacher, tax revenue officer, telephonic case manager)? Give summary @ -No Was smoking cessation discussed for >3mins.? @ -No Was critical care preformed (if so, how long)? @ -No Were there social determinants of health that impacted care today? How? (Homelessness, low income, unemployed, alcoholism, drug addiction, transportation, low edu. Level, literacy, decrease access to med. care, nursing home, rehab)? @ -No Was there de-escalation of care discussed even if they declined (Discuss DNR or withdrawal of care, Hospice)? DNR status @ -No What co-morbidities impacted this encounter? (DM, HTN, Smoking, COPD, CAD, Cancer, CVA, ARF, Chemo, Hep., AIDS, mental health diagnosis, sleep apnea, morbid obesity)? @ -None Was patient admitted / discharged? Hospital course, mention meds given and route, prescriptions, significant lab abnormalities, going to OR and other pertinent info. @ -Based on the patient's presentation and physical exam, I'm concerned for possible postop infection or consultation. We will obtain CT imaging basic labs. He'll be given IV analgesia medications as well as his normal blood pressure medication. He was in agreement this plan. Vital signs otherwise within acceptable limits. Exam relatively unremarkable. Imaging shows possible cellulitis around the umbilicus but no other findings. Postop complications. Patient's labs are remarkable for mild anemia in the setting of recent surgery and CK D. Patient has an elevated BUN/creatinine the setting of CK D but no obvious acute electrolyte abnormalities indicative of need for immediate dialysis. I discussed results with the patient. He is resting comfortably at this time. I will empirically start him on an antibiotic at this time. He will follow up with his convertible top installer on Sunday. He was in agreement this plan. Strict return precautions discussed. He has mild postoperative oozing of blood at the surgical incision that is dried and is not any worse than baseline. Pain is controlled and likely secondary to abdominal wall pain. I will provide the patient with a prescription for Bactrim. I instructed the patient to follow up with their PCP in the next 1-3 days. I explained that the patient should return to the emergency department if they experience any worsening symptoms. Strict return precautions were discussed with the patient. The patient expressed understanding of these instructions. I answered all questions that the patient had. The patient was discharged home in good condition with their prescriptions and follow up information. Undiagnosed new problem with uncertain prognosis? @ -No Drug Therapy requiring intensive monitoring for toxicity (Heparin, Nitro, Insulin, Cardizem)? @ -No Were any procedures done? @ -No Diagnosis/symptom? @ -Postop pain, cellulitis Acute, or Chronic, or Acute on Chronic? @ -Acute Uncomplicated (without systemic symptoms) or Complicated (systemic symptoms)? @ -Complicated Side effects of treatment? @ -No Exacerbation, Progression, or Severe Exacerbation? @ -No Poses a threat to life or bodily function? How? (Chest pain, [place], [place], pneumonia, PE, COPD, DKA, ARF, appy, cholecystitis, CVA, Diverticulitis, Homicidal, Suicidal, threat to staff... and all critical care pts) @ -No Diagnosis/symptom? @ -CK D Acute, or Chronic, or Acute on Chronic? @ -Chronic Uncomplicated (without systemic symptoms) or Complicated (systemic symptoms)? @ -Uncomplicated Side effects of treatment? @ -none Exacerbation, Progression, or Severe Exacerbation] @ -no Poses a threat to life or bodily function? @ -no - Lab Data Result diagrams: 12/10/22 00:13 12/10/22 00:13 Lab Results 12/10/22 12/10/22 12/10/22 Range/Units 00:13 00:13 00:13 WBC 11.3 H (3.8-10.6) k/uL RBC 3.31 L (4.30-5.90) m/uL Hgb 9.8 L (13.0-17.5) gm/dL Hct 29.0 L (39.0-53.0) % MCV 87.6 (80.0-100.0) fL MCH 29.6 (25.0-35.0) pg MCHC 33.8 (31.0-37.0) g/dL RDW 14.1 (11.5-15.5) % Plt Count 294 (150-450) k/uL MPV 8.4 Neutrophils % 79 % Lymphocytes % 12 % Monocytes % 4 % Eosinophils % 3 % Basophils % 1 % Neutrophils # 8.9 H (1.3-7.7) k/uL Lymphocytes # 1.4 (1.0-4.8) k/uL Monocytes # 0.5 (0-1.0) k/uL Eosinophils # 0.4 (0-0.7) k/uL Basophils # 0.1 (0-0.2) k/uL PT 10.9 (9.0-12.0) sec INR 1.0 (<1.2) APTT 24.4 (22.0-30.0) sec Sodium 139 (137-145) mmol/L Potassium 4.7 (3.5-5.1) mmol/L Chloride 112 H (98-107) mmol/L Carbon Dioxide 17 L (22-30) mmol/L Anion Gap 10 mmol/L BUN 60 H (9-20) mg/dL Creatinine 7.46 H* (0.66-1.25) mg/dL Est GFR (CKD-EPI)AfAm 9 (>60 ml/min/1.73 sqM) Est GFR (CKD-EPI)NonAf 7 (>60 ml/min/1.73 sqM) Glucose 88 (74-99) mg/dL Calcium 7.2 L (8.4-10.2) mg/dL Disposition Clinical Impression: Post-op pain, CKD (chronic kidney disease), Cellulitis Disposition: HOME SELF-CARE Condition: Good Prescriptions: Sulfamethox-Tmp 800-160Mg [Bactrim DS 800-160 mg] 1 tab PO Q12HR 5 Days #10 tab Is patient prescribed a controlled substance at d/c from ED?: No Referrals: Lizz Gomez, PAC [Primary Care Provider] - 1-2 days Time of Disposition: 03:29
[2022-12-10 03:53] VITALS: BP 170/107; PULSE 85; TEMP 97.9
== END 2022-12-10 03:50 | disposition home or self-care (01) ==
LOC: EC 22:16
DX: G89.18 Other acute postprocedural pain (principal); I12.0 Hypertensive chronic kidney disease with stage 5 chronic kidney disease or end stage renal disease; J90 Pleural effusion, not elsewhere classified; N18.6 End stage renal disease; E78.5 Hyperlipidemia, unspecified; Z79.899 Other long term (current) drug therapy; Z99.2 Dependence on renal dialysis; Z88.0 Allergy status to penicillin; Z88.8 Allergy status to other drugs, medicaments and biological substances
CPT/HCPCS: 36415; 80048; 85025; 85610; 85730; 74176; 99284; 96374; J2270

== ENCOUNTER → 2023-01-03 | Outpatient (CLI) | payer MEDICARE ==
[2023-01-03 15:48] LABS: Hepatitis B Surface AB- Quant 3.5 mIU/mL; Hepatitis B Surface Antigen Nonreactive; Hepatitis C IgG Antibody Nonreactive
== END | disposition home or self-care (01) ==
LOC: LABWHC1 12:05
PROVIDERS: ATTEND Internal Medicine Nephrology
DX: N18.6 End stage renal disease (principal)
CPT/HCPCS: 36415; 86704; 86706; 86803; 87340

== ENCOUNTER 2023-08-13 04:04 | Observation (INO) | payer MEDICARE ==
--- NOTE | 2023-08-13 04:30 | ED ---
Chest Pain HPI - General Chief Complaint: Chest Pain Stated Complaint: Chest pain Time Seen by Provider: 08/13/23 04:20 Source: patient Mode of arrival: ambulatory Limitations: no limitations - History of Present Illness Initial Comments: This patient is 52-year-old man with history of renal failure on peritoneal dialysis, who tonight had onset of substernal chest pain. Patient states she was at rest, trying to go to sleep. He has some associated left upper extremity radiation. The patient notes that he had been having some cough going on prior to onset of pain. He has occasional clear sputum. Patient denies changes in his legs, states that he does still produce urine. MD Complaint: chest pain -: hour(s) Onset: during rest Pain Location: substernal Pain Radiation: LUE Severity: moderate Quality: aching Consistency: constant Improves With: nothing Worsens With: nothing - Related Data Home Medications Medication Instructions Recorded Confirmed Nf-Pt To Bring In Home Med List 12/01/22 Atorvastatin Calcium 20 mg PO DAILY 12/08/22 12/08/22 Cetirizine HCl [Zyrtec] 10 mg PO DAILY 12/08/22 12/08/22 Ergocalciferol [Vitamin D2 (1250 1,250 mcg PO WEEKLY 12/08/22 12/08/22 Mcg = 30155 Iu)] Furosemide [Lasix] 40 mg PO DAILY PRN 12/08/22 12/08/22 Magnesium Oxide [Mag-Ox] 400 mg PO DAILY 12/08/22 12/08/22 Sodium Bicarbonate Tab 650 mg PO BID 12/08/22 12/08/22 allopurinoL 300 mg PO DAILY 12/08/22 12/08/22 amLODIPine BESYLATE [Amlodipine 10 mg PO DAILY PRN 12/08/22 12/08/22 Besylate] calcitrioL 0.5 mcg PO DAILY 12/08/22 12/08/22 carvediloL [Coreg] 12.5 mg PO BID 12/08/22 12/08/22 hydrALAZINE HCL 50 mg PO DAILY 12/08/22 12/08/22 Previous Rx's Medication Instructions Recorded traMADol HCl [Ultram] 50 mg PO Q6H PRN #6 tab 12/08/22 Sulfamethox-Tmp 800-160Mg [Bactrim 1 tab PO Q12HR 5 Days #10 tab 12/10/22 DS 800-160 mg] Allergies Allergy/AdvReac Type Severity Reaction Status Date / Time lisinopril AdvReac kidney Verified 08/13/23 04:08 damage Penicillins AdvReac "doesnt do Verified 08/13/23 04:08 anything for me" Review of Systems ROS Statement: Those systems with pertinent positive or pertinent negative responses have been documented in the HPI. ROS Other: All systems not noted in ROS Statement are negative. Constitutional: Denies: fever, chills, weakness Respiratory: Reports: cough. Denies: dyspnea, wheezes Cardiovascular: Reports: chest pain. Denies: palpitations, orthopnea, edema, syncope Gastrointestinal: Denies: abdominal pain, vomiting, diarrhea Genitourinary: Denies: dysuria, hematuria Musculoskeletal: Denies: back pain Skin: Denies: rash Neurological: Denies: headache, weakness, numbness EKG Findings - EKG Results: EKG: interpreted by ERMD, sinus rhythm (rate 64 bpm) - Blocks, [place], Hypertrophy, ST Abn: QRS axis and voltage: left axis deviation (-30 to -90) Chamber hypertrophy or enlargement: left ventricular hypertrophy or enlargement (LVE) Past Medical History Past Medical History: Dialysis, Hyperlipidemia, Hypertension, Renal Disease Additional Past Medical History / Comment(s): gout History of Any Multi-Drug Resistant Organisms: None Reported Past Surgical History: Hernia Repair, Orthopedic Surgery Additional Past Surgical History / Comment(s): Right shoulder surgery, colonoscopy, arthroscopy rt knee, Fawad fundoplication, tumor removed from back Past Anesthesia/Blood Transfusion Reactions: No Reported Reaction Additional Past Anesthesia/Blood Transfusion Reaction / Comment(s): "takes a little extra for me" Past Psychological History: No Psychological Hx Reported Smoking Status: Never smoker Past Alcohol Use History: None Reported Past Drug Use History: None Reported - Past Family History Father Family Medical History: Renal Disease Additional Family Medical History / Comment(s): Father at age 70 from a bowel aortic aneurysm rupture. He does have a history of kidney disease and was on dialysis. Mother Additional Family Medical History / Comment(s): Mother is alive with no major medical problems. Sister(s) Additional Family Medical History / Comment(s): Patient has one sister with history of hypertension. Patient does not have any brothers. Patient has 3 children with no major medical problems. General Exam Limitations: no limitations General appearance: alert, in no apparent distress Head exam: Present: atraumatic, normocephalic Eye exam: Present: normal appearance. Absent: scleral icterus, conjunctival injection Neck exam: Present: normal inspection, full ROM Respiratory exam: Present: normal lung sounds bilaterally. Absent: respiratory distress, wheezes, rales, rhonchi, stridor, accessory muscle use Cardiovascular Exam: Present: regular rate, normal rhythm, systolic murmur. Absent: diastolic murmur, rubs, gallop GI/Abdominal exam: Present: soft. Absent: distended, tenderness, guarding, rebound, rigid, mass Extremities exam: Present: normal inspection, normal capillary refill. Absent: pedal edema, calf tenderness Back exam: Present: normal inspection. Absent: CVA tenderness (R), CVA tenderness (L) Neurological exam: Present: alert Skin exam: Present: warm, dry, intact, normal color. Absent: rash Course Vital Signs 08/13/23 08/13/23 04:04 06:10 Temperature 97.8 F Pulse Rate 75 70 Respiratory 18 18 Rate Blood Pressure 170/95 154/99 O2 Sat by Pulse 97 96 Oximetry - Reevaluation(s) Reevaluation #1: 08/13/23 06:11 additional history from the patient reveals that he had heart catheterization performed through the [facility] on February 20 last year, with findings of essentially normal coronary arteries. Reevaluation #2: 08/13/23 06:[address] Hamilton who states at cardiology will see the patient early this morning Disposition Referrals: Guadalupe Gregory DO [Primary Care Provider] - 1-2 days
[2023-08-13 04:35] LABS: Basophils # (A) 0.1 k/uL (0-0.2); Basophils % (A) 1 %; Eosinophils # (A) 0.2 k/uL (0-0.7); Eosinophils % (A) 3 %; HCT 36.9 % (39.0-53.0); HGB 12.5 gm/dL (13.0-17.5); Lymphocytes # (A) 1.4 k/uL (1.0-4.8); Lymphocytes % (A) 20 %; MCH 28.7 pg (25.0-35.0); MCHC 33.8 g/dL (31.0-37.0); Mean Platelet Volume 7.9; Monocytes # (A) 0.7 k/uL (0-1.0); Monocytes % (A) 11 %; Neutrophils # (A) 4.4 k/uL (1.3-7.7); Neutrophils % (A) 63 %; Platelet Count 265 k/uL (150-450); RBC 4.34 m/uL (4.30-5.90)
--- NOTE | 2023-08-13 04:40 | XR ---
EXAMINATION TYPE: XR chest 2V DATE OF EXAM: 08/13/2023 COMPARISON: Chest x-ray September 05, 2009 HISTORY: Chest pain into left arm with cough TECHNIQUE: Frontal and lateral views of the chest are obtained. FINDINGS: Elevated right hemidiaphragm on current study. There is no focal air space opacity, pleural effusion, or pneumothorax seen. The cardiac silhouette size remains within normal limits. The oss eous structures are intact. IMPRESSION: No acute cardiopulmonary process.
[2023-08-13 04:52] LABS: Partial Thromboplastin Time 25.5 sec (22.0-30.0); Prothrombin Time 11.1 sec (10.0-12.5)
[2023-08-13 05:06] LABS: ALT 23 U/L (4-49); AST 24 U/L (17-59); African American GFR (CKD) 6 (>60 ml/min/1.73 sqM); Albumin 3.8 g/dL (3.5-5.0); Alkaline Phosphatase 63 U/L (38-126); Anion Gap 14 mmol/L; Blood Urea Nitrogen 59 mg/dL (9-20); Carbon Dioxide 20 mmol/L (22-30); Chloride 108 mmol/L (98-107); Glucose 134 mg/dL (74-99); Magnesium 1.9 mg/dL (1.6-2.3); Non-African American GFR(CKD) 5 (>60 ml/min/1.73 sqM); Potassium 4.5 mmol/L (3.5-5.1); Sodium 142 mmol/L (137-145); Total Bilirubin 0.6 mg/dL (0.2-1.3); Total Protein 6.5 g/dL (6.3-8.2)
[2023-08-13] MEDS ORDERED: HEPARIN SODIUM 1,000 UN/ML (10ML VL) IV PRN (05:54)
[2023-08-13] MEDS ORDERED: HEPARIN SOD,PORK IN 0.45% NACL 25,000 UNIT in 0.45% NACL 1 250ML.BAG IV SCH (06:00)
[2023-08-13] MEDS: HEPARIN SOD,PORK IN 0.45% NACL 25,000 UNIT in 0.45% NACL 1 250ML.BAG IV SCH (06:06)
[2023-08-13] MEDS: HEPARIN SODIUM 1,000 UN/ML (10ML VL) IV ONE (06:08)
[2023-08-13] MEDS: NITROGLYCERIN OINT 1 INCH/GM PACKET TOPICAL STA (06:51)
[2023-08-13] MEDS: MORPHINE SULFATE 4 MG/ML SYRINGE IV STA (06:52)
[2023-08-13] MEDS ORDERED: traMADol 50 MG TAB PO PRN (07:21)
[2023-08-13] MEDS ORDERED: FUROSEMIDE 40 MG TAB PO PRN (07:21)
--- NOTE | 2023-08-13 10:05 | P.NPCON ---
History of Present Illness - Reason for Consult end stage renal disease - History of Present Illness Reason for consultation: End-stage renal disease History of present illness: Patient is a 52-year-old male seen in renal consultation for end-stage renal disease. Patient was seen and examined in the emergency room. He is maintained on peritoneal dialysis. Patient states he does 4 exchanges overnight using the cycler with 1.8 L alternating 1.5 and 2.5% dextrose solution. He denies any abdominal pain. Patient states dialysate has been clear. Denies constipation. Patient states he has had a cough over the last few days and progressively has been getting worse. Patient also states he developed shortness of breath and came to the hospital. Patient states he also developed pain in his left lower extremity. He denies prior history of coronary artery disease. Denies history of diabetes. He does make urine. No fever or chills. No vomiting or diarrhea. Currently on heparin drip. Cardiology has been consulted. Vital signs are stable. General: No acute distress. HEENT: Head exam is unremarkable. LUNGS: No audible rhonchi or wheezes. HEART: Rate and Rhythm are regular. ABDOMEN: Nontender. EXTREMITITES: No edema. Past Medical History Past Medical History: Dialysis, Hyperlipidemia, Hypertension, Renal Disease Additional Past Medical History / Comment(s): gout History of Any Multi-Drug Resistant Organisms: None Reported Past Surgical History: Hernia Repair, Orthopedic Surgery Additional Past Surgical History / Comment(s): Right shoulder surgery, colonoscopy, arthroscopy rt knee, Fawad fundoplication, tumor removed from back Past Anesthesia/Blood Transfusion Reactions: No Reported Reaction Additional Past Anesthesia/Blood Transfusion Reaction / Comment(s): "takes a little extra for me" Past Psychological History: No Psychological Hx Reported Smoking Status: Never smoker Past Alcohol Use History: None Reported Past Drug Use History: None Reported - Past Family History Father Family Medical History: Renal Disease Additional Family Medical History / Comment(s): Father at age 70 from a bowel aortic aneurysm rupture. He does have a history of kidney disease and was on dialysis. Mother Additional Family Medical History / Comment(s): Mother is alive with no major medical problems. Sister(s) Additional Family Medical History / Comment(s): Patient has one sister with history of hypertension. Patient does not have any brothers. Patient has 3 children with no major medical problems. Medications and Allergies Home Medications Medication Instructions Recorded Confirmed Type Nf-Pt To Bring In Home Med List 12/01/22 History Atorvastatin Calcium 20 mg PO DAILY 12/08/22 12/08/22 History Cetirizine HCl [Zyrtec] 10 mg PO DAILY 12/08/22 12/08/22 History Ergocalciferol [Vitamin D2 (1250 1,250 mcg PO WEEKLY 12/08/22 12/08/22 History Mcg = 87061 Iu)] Furosemide [Lasix] 40 mg PO DAILY PRN 12/08/22 12/08/22 History Magnesium Oxide [Mag-Ox] 400 mg PO DAILY 12/08/22 12/08/22 History Sodium Bicarbonate Tab 650 mg PO BID 12/08/22 12/08/22 History allopurinoL 300 mg PO DAILY 12/08/22 12/08/22 History amLODIPine BESYLATE [Amlodipine 10 mg PO DAILY PRN 12/08/22 12/08/22 History Besylate] calcitrioL 0.5 mcg PO DAILY 12/08/22 12/08/22 History carvediloL [Coreg] 12.5 mg PO BID 12/08/22 12/08/22 History hydrALAZINE HCL 50 mg PO DAILY 12/08/22 12/08/22 History traMADol HCl [Ultram] 50 mg PO Q6H PRN #6 tab 12/08/22 Rx Sulfamethox-Tmp 800-160Mg [Bactrim 1 tab PO Q12HR 5 Days #10 tab 12/10/22 Rx DS 800-160 mg] Allergies Allergy/AdvReac Type Severity Reaction Status Date / Time lisinopril AdvReac kidney Verified 08/13/23 04:08 damage Penicillins AdvReac "doesnt do Verified 08/13/23 04:08 anything for me" Physical Exam Vitals: Vital Signs Temp Pulse Resp BP Pulse Ox 08/13/23 07:49 71 18 143/96 94 L 08/13/23 06:10 70 18 154/99 96 08/13/23 04:04 97.8 F 75 18 170/95 97 Intake and Output 08/12/23 08/13/23 08/13/23 22:59 06:59 14:59 Other: Weight 88.451 kg Results - Lab Results Most recent lab results Calcium 7.0 mg/dL (8.4-10.2) L 08/13/23 04:15 Magnesium 1.9 mg/dL (1.6-2.3) 08/13/23 04:15 08/13/23 04:15 08/13/23 04:15 Assessment and Plan Plan: Assessment: 1. End-stage renal disease maintained on peritoneal dialysis. 2. Hypertension with chronic kidney disease. 3. Chronic kidney disease mineral bone disease maintained on calcitriol. 4. Chest pain. Rule out acute coronary syndrome. Currently on heparin drip. Cardiology consulted. 5. Metabolic acidosis secondary to chronic kidney disease maintained on oral bicarb. Plan: Resume PD exchanges -2 L every 6 hours with 1.5% dextrose solution. Increase hydralazine to 50 mg twice daily. Add Lasix 80 mg once daily. Calcitriol resumed. Check phosphorus level. Thank you for the consultation. I will continue to follow the patient with you during his hospital stay.
[2023-08-13] MEDS: MAGNESIUM OXIDE 400 MG TAB PO SCH (11:16)
[2023-08-13] MEDS: SODIUM BICARBONATE TAB 650 MG TAB PO SCH (11:52)
[2023-08-13] MEDS: carvediloL 12.5 MG TAB PO SCH ×2 (11:53→17:20)
[2023-08-13] MEDS: hydrALAZINE HCL 50 MG TAB PO SCH ×2 (11:53→11:56)
[2023-08-13] MEDS: FUROSEMIDE 80 MG TAB PO SCH (11:53)
[2023-08-13] MEDS: ATORVASTATIN 20 MG TAB PO SCH (11:53)
[2023-08-13] MEDS: DIALYSIS (PERIT 1.5%) 2,000 ML 30 G/2,000 ML BAG INTRAPERIT SCH (13:34)
[2023-08-14] MEDS: FUROSEMIDE 10 MG/ML 4 ML VIAL IV STA (02:29)
[2023-08-14] MEDS: BENZOCAINE/MENTHOL LOZENG 1 EACH LOZENGE MUCOUS MEM PRN (02:29)
[2023-08-14] MEDS: hydrALAZINE HCL 20 MG/ML 1 ML VIAL IVP STA (02:31)
[2023-08-14] MEDS: NITROGLYCERIN SL TABS 0.4 MG TAB SUBLINGUAL PRN (02:37)
[2023-08-14] MEDS: ASPIRIN 325 MG TAB PO SCH (08:59)
[2023-08-14 09:10] LABS: INR 1.1 (<1.2); Prothrombin Time 11.7 sec (10.0-12.5)
--- NOTE | 2023-08-14 09:55 | P.PN ---
Subjective Patient is seen in follow-up for end-stage renal disease. He is maintained on peritoneal dialysis. No problems with PD exchanges. Admits to dyspnea when he coughs. Otherwise no active complaints. Vital signs are stable. General: No acute distress. HEENT: Head exam is unremarkable. LUNGS: No audible rhonchi or wheezes. HEART: Rate and Rhythm are regular. ABDOMEN: Nontender. EXTREMITITES: No edema. Objective - Vital Signs Vital signs: Vital Signs Temp 98.1 F 08/14/23 08:11 Pulse 86 08/14/23 08:11 Resp 18 08/14/23 08:11 BP 158/98 08/14/23 08:11 Pulse Ox 95 08/14/23 08:11 FiO2 Intake & Output 08/13/23 08/14/23 08/14/23 18:59 06:59 18:59 Intake Total 240.334 Balance 240.334 Intake: Intake, IV Titration 240.334 Amount Heparin Sod,Pork in 0.45% 240.334 NaCl 25,000 unit In 0.45 % NaCl 1 250ml.bag @ 11. 3057 UNITS/KG/HR 10 mls/ hr IV .Q24H [facility] Rx#: [id number] - Labs CBC & Chem 7: 08/13/23 04:15 08/13/23 04:15 Labs: Abnormal Lab Results - Last 24 Hours (Table) 08/13/23 08/13/23 08/13/23 Range/Units 09:43 09:43 12:31 APTT 81.6 H (22.0-30.0) sec Phosphorus (2.5-4.5) mg/dL Troponin I 0.149 H* 0.128 H* (0.000-0.034) ng/mL 08/13/23 08/13/23 08/13/23 Range/Units 12:31 16:01 20:57 APTT 57.4 H (22.0-30.0) sec Phosphorus 8.4 H (2.5-4.5) mg/dL Troponin I 0.130 H* (0.000-0.034) ng/mL Assessment and Plan Plan: Assessment: 1. End-stage renal disease maintained on peritoneal dialysis. 2. Hypertension with chronic kidney disease. 3. Chronic kidney disease mineral bone disease maintained on calcitriol. Phosphorus level 8.4 dated August 13, 2023. 4. Chest pain. Rule out acute coronary syndrome. Currently on heparin drip. Cardiology following. 5. Metabolic acidosis secondary to chronic kidney disease maintained on oral bicarb. Plan: Maintain PD exchanges. Change to 2.5% dextrose solution. Dose of Coreg increased. Entresto also added by cardiology. Maintain Lasix. Add PhosLo with meals.
[2023-08-14 10:57] LABS: Basophils # (A) 0.1 k/uL (0-0.2); Basophils % (A) 1 %; Eosinophils # (A) 0.4 k/uL (0-0.7); Eosinophils % (A) 6 %; HGB 12.4 gm/dL (13.0-17.5); Lymphocytes # (A) 1.6 k/uL (1.0-4.8); Lymphocytes % (A) 22 %; MCH 28.4 pg (25.0-35.0); MCHC 33.4 g/dL (31.0-37.0); MCV 84.9 fL (80.0-100.0); Mean Platelet Volume 7.6; Monocytes # (A) 0.6 k/uL (0-1.0); Monocytes % (A) 8 %; Neutrophils # (A) 4.7 k/uL (1.3-7.7); Neutrophils % (A) 62 %; Platelet Count 260 k/uL (150-450); RBC 4.35 m/uL (4.30-5.90); RDW 13.9 % (11.5-15.5); WBC 7.5 k/uL (3.8-10.6)
[2023-08-14] MEDS: SACUBITRIL/VALSARTAN 24 MG-26 MG TABLET PO SCH (11:08)
--- NOTE | 2023-08-14 12:52 | P.CRDCN ---
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 Patient states that he is being worked up to get on the kidney transplant list and underwent a cardiac catheterization at [facility] and 02/20/2023 which revealed right dominant, left main artery is absent. There is dual ostia. LAD artery is normal and diagonal artery is normal. Left circumflex normal as well as OM and RCA, PDA and PLB normal. Patient also recently underwent MRI of the heart which revealed LVEF of 35%, moderate concentric LV hypertrophy with noted thickness to 15 mm in the septum and lateral kim. Right ventricle is normal in size with borderline reduced systolic function. Calculated RV V EF is 51%. No significant cardio valvular abnormalities. Trace pericardial effusion. Large right pleural effusion noted. Patient presented to the hospital due to chest pain that started at rest with left upper extremity radiation. Patient also complains of cough with occasional clear sputum production. EKG sinus rhythm Chest x-ray: No acute process. WBC 6.5, hemoglobin 12.4. Sodium 142, potassium 4.5, chloride 108, CO2 20, BUN 59 creatinine 9.9. Glucose 134. Calcium 7. Phosphorus 8.4. Liver function tests are normal. Magnesium 1.9. Troponin 0.162, 0.149, 0.128, 0.13. proBNP 12,400. Influenza A, influenza B, RSV, COVID-19 not detected. Home cardiac medications: Amlodipine 10 mg daily, atorvastatin 20 mg daily, Coreg 25 mg twice daily, Lasix 40 mg daily as needed, hydralazine 50 mg daily, losartan 25 mg daily, sodium bicarb 650 mg twice daily. Review Of Systems: At the time of my exam: CONSTITUTIONAL: Denies fever or chills. HEENT: Denies blurred vision, vision changes, or eye pain. Denies hemoptysis CARDIOVASCULAR: Denies chest pain. Denies orthopnea. Denies PND. Denies palpitations RESPIRATORY: Denies shortness of breath. GASTROINTESTINAL: Denies abdominal pain. Denies nausea or vomiting. HEMATOLOGIC: Denies bleeding disorders. GENITOURINARY: Denies any blood in urine. SKIN: Denies pruitis. Denies rash. Physical examination: Gen: This is a 52-year-old male in no acute distress. VS: reviewed blood pressure 158/98, heart rate 91. HEENT: Head is atraumatic, normocephalic. Pupils equal, round. Sclerae is anicteric. NECK: Supple. No JVD. LUNGS: Clear to auscultation. No wheezes or rhonchi. No intercostal retractions. HEART: Regular rate and rhythm. No murmur. ABDOMEN: Soft No tenderness. EXTREMITIES: No pedal edema. No calf tenderness. NEUROLOGICAL: Patient is awake, alert and oriented x3. Assessment: Flat troponin elevation not indicative of acute coronary syndrome Nonischemic cardiomyopathy with previous EF of 35% End-stage renal disease on peritoneal dialysis Hypertension Plan: Resume patient's home cardiac medications Obtain records from [facility] Start patient on Entresto 24 mg - 26 mg 1 twice daily, AM dose today was held due to blood pressure of 85/63 Discontinue heparin drip No need to repeat echocardiogram Further recommendations to follow based upon clinical course Thank you kindly for this consultation. Nurse practitioner note has been reviewed, I agree with documented findings and plan of care. Patient was seen and examined. Past Medical History Past Medical History: Dialysis, Hyperlipidemia, Hypertension, Renal Disease Additional Past Medical History / Comment(s): gout History of Any Multi-Drug Resistant Organisms: None Reported Past Surgical History: Hernia Repair, Orthopedic Surgery Additional Past Surgical History / Comment(s): Right shoulder surgery, colonoscopy, arthroscopy rt knee, Fawad fundoplication, tumor removed from back Past Anesthesia/Blood Transfusion Reactions: No Reported Reaction Additional Past Anesthesia/Blood Transfusion Reaction / Comment(s): "takes a little extra for me" Past Psychological History: No Psychological Hx Reported Smoking Status: Never smoker Past Alcohol Use History: None Reported Past Drug Use History: None Reported - Past Family History Father Family Medical History: Renal Disease Additional Family Medical History / Comment(s): Father at age 70 from a bowel aortic aneurysm rupture. He does have a history of kidney disease and was on dialysis. Mother Additional Family Medical History / Comment(s): Mother is alive with no major medical problems. Sister(s) Additional Family Medical History / Comment(s): Patient has one sister with history of hypertension. Patient does not have any brothers. Patient has 3 children with no major medical problems. Medications and Allergies Home Medications Medication Instructions Recorded Confirmed Type Atorvastatin Calcium 20 mg PO DAILY 12/08/22 08/13/23 History Cetirizine HCl [Zyrtec] 10 mg PO DAILY 12/08/22 08/13/23 History Furosemide [Lasix] 40 mg PO DAILY PRN 12/08/22 08/13/23 History Sodium Bicarbonate Tab 650 mg PO BID 12/08/22 08/13/23 History hydrALAZINE HCL 50 mg PO DAILY 12/08/22 08/13/23 History Losartan [Cozaar] 25 mg PO DAILY 08/13/23 08/13/23 History amLODIPine [Norvasc] 10 mg PO DAILY 08/13/23 08/13/23 History calcitrioL [Rocaltrol] 1.5 mcg PO MO 08/13/23 08/13/23 History carvediloL [Coreg] 25 mg PO BID 08/13/23 08/13/23 History Allergies Allergy/AdvReac Type Severity Reaction Status Date / Time lisinopril AdvReac kidney Verified 08/13/23 10:11 damage Penicillins AdvReac "doesn't Verified 08/13/23 10:11 do anything for me" Physical Exam Vitals: Vital Signs Temp Pulse Resp BP Pulse Ox 08/14/23 08:11 98.1 F 86 18 158/98 95 08/14/23 05:57 80 18 147/85 95 08/14/23 03:40 85 20 145/89 95 08/14/23 03:20 81 21 134/89 95 08/14/23 02:31 85 18 157/101 95 08/14/23 01:40 166/95 08/14/23 01:20 81 21 166/95 91 L 08/14/23 01:00 83 19 166/95 90 L 08/14/23 00:40 79 21 166/95 91 L 08/14/23 00:20 80 14 166/95 90 L 08/14/23 00:00 81 20 89 L 08/13/23 23:40 77 22 90 L 08/13/23 23:20 77 22 90 L 08/13/23 22:00 144/105 08/13/23 21:50 144/105 08/13/23 21:49 75 16 144/105 96 08/13/23 19:45 65 21 155/98 94 L 08/13/23 17:17 72 20 166/104 95 08/13/23 11:52 71 18 171/99 95 Intake and Output 08/13/23 08/14/23 08/14/23 22:59 06:59 14:59 Intake Total 164.167 76.167 Balance 164.167 76.167 Intake: Intake, IV Titration 164.167 76.167 Amount Heparin Sod,Pork in 0.45% 164.167 76.167 NaCl 25,000 unit In 0.45 % NaCl 1 250ml.bag @ 11. 3057 UNITS/KG/HR 10 mls/ hr IV .Q24H [facility] Rx#: [id number] Results 08/14/23 09:52 08/13/23 04:15 Cardiac Enzymes 08/13/23 08/13/23 08/13/23 Range/Units 09:43 12:31 16:01 Troponin I 0.149 H* 0.128 H* 0.130 H* (0.000-0.034) ng/mL Coagulation 08/13/23 08/13/23 Range/Units 09:43 20:57 APTT 81.6 H 57.4 H (22.0-30.0) sec Current Medications Generic Name Dose Route Start Last Admin Trade Name Freq PRN Reason Stop Dose Admin Amlodipine Besylate 10 mg 08/13/23 07:21 Amlodipine 10 Mg Tab PO DAILY PRN GOUT Aspirin 325 mg 08/14/23 09:00 08/14/23 08:59 Aspirin 325 Mg Tab PO 325 mg DAILY LISA Administration Atorvastatin Calcium 20 mg 08/13/23 09:00 08/14/23 08:59 Atorvastatin 20 Mg Tab PO 20 mg DAILY LISA Administration Benzocaine/Menthol 1 each 08/14/23 02:09 08/14/23 02:29 Benzocaine/Menthol Lozeng 1 Each Lozenge MUCOUS MEM 1 each Q6HR PRN Administration Cough Calcitriol 0.5 mcg 08/13/23 09:00 08/14/23 08:59 Calcitriol 0.25 Mcg Cap PO Not Given DAILY LISA Carvedilol 25 mg 08/13/23 17:30 08/14/23 08:59 Carvedilol 12.5 Mg Tab PO 25 mg BID-W/MEALS LISA Administration Furosemide 80 mg 08/13/23 10:15 08/14/23 08:58 Furosemide 80 Mg Tab PO 80 mg DAILY LISA Administration Heparin Sodium (Porcine) 0 unit 08/13/23 05:54 Heparin Sodium 1,000 Un/Ml (10ml Vl) IV PER PROTOCOL PRN Low PTT Protocol Hydralazine HCl 50 mg 08/13/23 21:00 08/14/23 08:57 Hydralazine Hcl 50 Mg Tab PO 50 mg BID LISA Administration Heparin Sodium/Sodium Chloride 250 mls @ 10 mls/hr 08/13/23 06:00 08/14/23 06:08 25,000 unit/ Sodium Chloride IV 11.31 units/kg/hr .Q24H LISA 10 mls/hr Administration Protocol 11.3057 UNITS/KG/HR Peritoneal Dialysis Solution 30 g in 2,000 mls @ 0 mls/hr 08/13/23 12:00 08/14/23 08:11 Delflex With 1.5% Dextrose (2,000 Ml) INTRAPERIT 2,000 mls/hr Q6HR LISA Administration Protocol As Directed Magnesium Oxide 400 mg 08/13/23 09:00 08/14/23 09:00 Magnesium Oxide 400 Mg Tab PO Not Given DAILY [facility] Nitroglycerin 0.4 mg 08/13/23 07:18 08/14/23 03:59 Nitroglycerin Sl Tabs 0.4 Mg Tab SUBLINGUAL 0.4 mg Q5M PRN Administration Chest Pain Sodium Bicarbonate 650 mg 08/13/23 09:00 08/14/23 08:58 Sodium Bicarbonate Tab 650 Mg Tab PO Not Given BID [facility] Tramadol HCl 50 mg 08/13/23 07:21 Tramadol 50 Mg Tab PO Q6H PRN Pain Intake and Output 08/13/23 08/14/23 08/14/23 22:59 06:59 14:59 Intake Total 164.167 76.167 Balance 164.167 76.167 Intake: Intake, IV Titration 164.167 76.167 Amount Heparin Sod,Pork in 0.45% 164.167 76.167 NaCl 25,000 unit In 0.45 % NaCl 1 250ml.bag @ 11. 3057 UNITS/KG/HR 10 mls/ hr IV .Q24H [facility] Rx#: [id number] 08/13/23 04:15 08/13/23 04:15
[2023-08-14] MEDS: CALCIUM ACETATE 667 MG TAB PO SCH (13:46)
[2023-08-14] MEDS: DIALYSIS (PERIT 2.5%) 2,000 ML 50 G/2,000 ML BAG INTRAPERIT SCH ×2 (14:38→20:10)
--- NOTE | 2023-08-14 15:21 | P.HPIM ---
History of Present Illness H&P Date: 08/14/23 This is a 52-year-old gentleman with past medical history of cardiomyopathy- nonischemic, end-stage renal disease on peritoneal dialysis hypertension, hyperlipidemia. 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 Reports he recently underwent a cardiac catheterization at [facility] last February 2023 reporting normal coronaries. Presented to the ER with complaints of progressive shortness of breath, chest discomfort with cough- productive clear sputum.Denies nausea vomiting or diarrhea .denies constipation. Denies abdominal pain. Reports Clear Dialysate. Troponin 0.162, 0.149, 0.128, 0.130 .EKG reported sinus rhythm, chest x-ray nonacute. Viral studies negative. Afebrile, normal WBC, hemoglobin 12.4, platelets 14, sodium 142, potassium 4.5, bicarb 20, BUN 59, creatinine 9.96, calcium 7, phosphorus 8.4, magnesium 1.9, proBNP 12,400. Continues on peritoneal dialysis, PD solution osmolarity increased as per nephrology with oral diuretics added. Entresto added as per cardiology. Review of Systems ROS Statement: Those systems with pertinent positive or pertinent negative responses have been documented in the HPI. ROS Other: All systems not noted in ROS Statement are negative. Past Medical History Past Medical History: Dialysis, Hyperlipidemia, Hypertension, Renal Disease Additional Past Medical History / Comment(s): gout History of Any Multi-Drug Resistant Organisms: None Reported Past Surgical History: Hernia Repair, Orthopedic Surgery Additional Past Surgical History / Comment(s): Right shoulder surgery, colonoscopy, arthroscopy rt knee, Fawad fundoplication, tumor removed from back Past Anesthesia/Blood Transfusion Reactions: No Reported Reaction Additional Past Anesthesia/Blood Transfusion Reaction / Comment(s): "takes a little extra for me" Past Psychological History: No Psychological Hx Reported Smoking Status: Never smoker Past Alcohol Use History: None Reported Past Drug Use History: None Reported - Past Family History Father Family Medical History: Renal Disease Additional Family Medical History / Comment(s): Father at age 70 from a bowel aortic aneurysm rupture. He does have a history of kidney disease and was on dialysis. Mother Additional Family Medical History / Comment(s): Mother is alive with no major medical problems. Sister(s) Additional Family Medical History / Comment(s): Patient has one sister with history of hypertension. Patient does not have any brothers. Patient has 3 children with no major medical problems. Medications and Allergies Home Medications Medication Instructions Recorded Confirmed Type Atorvastatin Calcium 20 mg PO DAILY 12/08/22 08/13/23 History Cetirizine HCl [Zyrtec] 10 mg PO DAILY 12/08/22 08/13/23 History Furosemide [Lasix] 40 mg PO DAILY PRN 12/08/22 08/13/23 History Sodium Bicarbonate Tab 650 mg PO BID 12/08/22 08/13/23 History hydrALAZINE HCL 50 mg PO DAILY 12/08/22 08/13/23 History Losartan [Cozaar] 25 mg PO DAILY 08/13/23 08/13/23 History amLODIPine [Norvasc] 10 mg PO DAILY 08/13/23 08/13/23 History calcitrioL [Rocaltrol] 1.5 mcg PO MO 08/13/23 08/13/23 History carvediloL [Coreg] 25 mg PO BID 08/13/23 08/13/23 History Allergies Allergy/AdvReac Type Severity Reaction Status Date / Time lisinopril AdvReac kidney Verified 08/13/23 10:11 damage Penicillins AdvReac "doesn't Verified 08/13/23 10:11 do anything for me" Physical Exam Vitals: Vital Signs Temp Pulse Resp BP Pulse Ox 08/14/23 13:45 84 18 141/77 96 08/14/23 12:00 69 22 138/73 89 L 08/14/23 10:00 79 25 H 116/80 93 L 08/14/23 09:57 116/80 08/14/23 09:55 75 18 85/63 95 08/14/23 09:00 85 12 158/98 96 08/14/23 08:11 98.1 F 86 18 158/98 95 08/14/23 08:00 84 20 161/97 89 L 08/14/23 07:00 83 22 161/97 93 L 08/14/23 05:57 80 18 147/85 95 08/14/23 04:00 83 13 165/97 95 08/14/23 03:40 85 20 145/89 95 08/14/23 03:20 81 21 134/89 95 08/14/23 02:31 85 18 157/101 95 04/09/24 01:40 166/95 08/14/23 01:20 81 21 166/95 91 L 08/14/23 01:00 83 19 166/95 90 L 08/14/23 00:40 79 21 166/95 91 L 08/14/23 00:20 80 14 166/95 90 L 08/14/23 00:00 81 20 89 L 08/13/23 23:40 77 22 90 L 08/13/23 23:20 77 22 90 L 08/13/23 22:00 144/105 08/13/23 21:50 144/105 08/13/23 21:49 75 16 144/105 96 08/13/23 19:45 65 21 155/98 94 L 08/13/23 17:17 72 20 166/104 95 Intake and Output 08/13/23 08/14/23 08/14/23 22:59 06:59 14:59 Intake Total 164.167 76.167 59.167 Balance 164.167 76.167 59.167 Intake: Intake, IV Titration 164.167 76.167 59.167 Amount Heparin Sod,Pork in 0.45% 164.167 76.167 59.167 NaCl 25,000 unit In 0.45 % NaCl 1 250ml.bag @ 11. 3057 UNITS/KG/HR 10 mls/ hr IV .Q24H [facility] Rx#: [id number] PHYSICAL EXAM: VITAL SIGNS: [As above] GENERAL: Alert and oriented x 3, sitting up on stretcher, no acute distress HEENT: Normocephalic, atraumatic conjunctivae normal. eyes normal. Mucous membranes dry NECK: Supple, no JVD. No thyroid enlargement. No LNs CARDIOVASCULAR: S1, S2 regular.. No murmur RESPIRATION: Unlabored, equal air entry, bibasilar crackles. ABDOMEN: Soft, nondistended, nontender . No guarding. no masses palpable. No ascites, No hepatosplenomegaly.Bowel sounds heard. LEGS: No edema. no swelling PSYCHIATRY: Alert and oriented X3, mood and affect normal. NERVOUS SYSTEM: Cranial N 2-12 grossly normal. No focal deficits. Strength and sensation grossly intact.. Skin: Warm and dry, no rash Results CBC & Chem 7: 08/14/23 09:52 08/13/23 04:15 Labs: Abnormal Lab Results - Last 24 Hours (Table) 08/13/23 08/13/23 08/14/23 Range/Units 16:01 20:57 09:52 Hgb 12.4 L (13.0-17.5) gm/dL Hct 37.0 L (39.0-53.0) % APTT 57.4 H (22.0-30.0) sec Troponin I 0.130 H* (0.000-0.034) ng/mL 08/14/23 Range/Units 11:07 Hgb (13.0-17.5) gm/dL Hct (39.0-53.0) % APTT 47.5 H (22.0-30.0) sec Troponin I (0.000-0.034) ng/mL Assessment and Plan Assessment: Chest discomfort with cough, flat troponin elevation, acute coronary syndrome ruled out as per cardiology Dyspnea secondary to the above Cardiomyopathy, nonischemic, prior EF reported as 35% Hypertension End-stage renal disease, on peritoneal dialysis Metabolic acidosis secondary to the above Plan: Continue on current medication regimen ,monitoring and symptomatic treatment. PD as per nephrology. Entresto added as per cardiology. PPI for GI prophylaxis. Increase activity as tolerated. The impression and plan of care has been dictated as directed. : I performed a history and examination of this patient, discussed the same with the dictator. I agree with the dictator's note ,documented as a scribe. Any additional findings or plans will be noted.
[2023-08-14 16:17] LABS: Chol/HDL Ratio 2.49 Ratio
[2023-08-14] MEDS: PANTOPRAZOLE 40 MG/10 ML VIAL IVP SCH (16:55)
[2023-08-14] MEDS: BENZONATATE 100 MG CAP PO PRN (17:22)
[2023-08-15] MEDS: amLODIPine 10 MG TAB PO PRN (03:14)
[2023-08-15 09:36] LABS: African American GFR (CKD) 6 (>60 ml/min/1.73 sqM); Anion Gap 15 mmol/L; Blood Urea Nitrogen 49 mg/dL (9-20); Calcium 7.7 mg/dL (8.4-10.2); Carbon Dioxide 22 mmol/L (22-30); Chloride 104 mmol/L (98-107); Glucose 149 mg/dL (74-99); Magnesium 1.7 mg/dL (1.6-2.3); Non-African American GFR(CKD) 5 (>60 ml/min/1.73 sqM); Potassium 3.8 mmol/L (3.5-5.1); Sodium 141 mmol/L (137-145)
--- NOTE | 2023-08-15 10:54 | P.PN ---
Subjective Patient is seen in follow-up for end-stage renal disease. He is maintained on peritoneal dialysis. No problems with PD exchanges. No active complaints. Feels better today. Vital signs are stable. General: No acute distress. HEENT: Head exam is unremarkable. LUNGS: No audible rhonchi or wheezes. HEART: Rate and Rhythm are regular. ABDOMEN: Nontender. EXTREMITITES: No edema. Objective - Vital Signs Vital signs: Vital Signs Temp 98 F 08/15/23 08:00 Pulse 79 08/15/23 08:00 Resp 16 08/15/23 08:00 BP 153/92 08/15/23 08:00 Pulse Ox 98 08/15/23 08:00 FiO2 Intake & Output 08/14/23 08/15/23 08/15/23 18:59 06:59 18:59 Intake Total 299.167 118 Balance 299.167 118 Weight 88.451 kg 87.7 kg Intake: Intake, IV Titration 59.167 Amount Heparin Sod,Pork in 0.45% 59.167 NaCl 25,000 unit In 0.45 % NaCl 1 250ml.bag @ 11. 3057 UNITS/KG/HR 10 mls/ hr IV .Q24H [facility] Rx#: [id number] Oral 240 118 Other: Voiding Method Toilet Toilet Toilet # Voids 1 1 - Labs CBC & Chem 7: 08/14/23 09:52 08/15/23 08:47 Labs: Abnormal Lab Results - Last 24 Hours (Table) 08/14/23 08/14/23 08/14/23 Range/Units 09:52 09:52 11:07 Hgb 12.4 L (13.0-17.5) gm/dL Hct 37.0 L (39.0-53.0) % APTT 47.5 H (22.0-30.0) sec BUN (9-20) mg/dL Creatinine (0.66-1.25) mg/dL Glucose (74-99) mg/dL Calcium (8.4-10.2) mg/dL HDL Cholesterol 35.40 L (40.00-60.00) mg/dL 08/15/23 Range/Units 08:47 Hgb (13.0-17.5) gm/dL Hct (39.0-53.0) % APTT (22.0-30.0) sec BUN 49 H (9-20) mg/dL Creatinine 10.66 H* (0.66-1.25) mg/dL Glucose 149 H (74-99) mg/dL Calcium 7.7 L (8.4-10.2) mg/dL HDL Cholesterol (40.00-60.00) mg/dL Assessment and Plan Plan: Assessment: 1. End-stage renal disease maintained on peritoneal dialysis. 2. Hypertension with chronic kidney disease. 3. Chronic kidney disease mineral bone disease maintained on calcitriol. Phosphorus level 8.4 dated August 13, 2023. On PhosLo. 4. Chest pain. Rule out acute coronary syndrome. S/p heparin drip. C ardiology following. 5. Metabolic acidosis secondary to chronic kidney disease maintained on oral b icarb. Plan: Maintain PD exchanges. Increase frequency of hydralazine to 3 times daily. Maintain Lasix.
--- NOTE | 2023-08-15 14:46 | P.PN ---
Subjective Progress Note Date: 08/15/23 H&P Date: 08/14/23 This is a 52-year-old gentleman with past medical history of cardiomyopathy- nonischemic, end-stage renal disease on peritoneal dialysis hypertension, hyperlipidemia. Follows with account services specialist at [facility]. Reports he recently underwent a cardiac catheterization at [facility] last February 2023 reporting normal coronaries. Presented to the ER with complaints of progressive shortness of breath, chest discomfort with cough- productive clear sputum.Denies nausea vomiting or diarrhea .denies constipation. Denies abdominal pain. Reports Clear Dialysate. Troponin 0.162, 0.149, 0.128, 0.130 .EKG reported sinus rhythm, chest x-ray nonacute. Viral studies negative. Afebrile, normal WBC, hemoglobin 12.4, platelets 14, sodium 142, potassium 4.5, bicarb 20, BUN 59, creatinine 9.96, calcium 7, phosphorus 8.4, magnesium 1.9, proBNP 12,400. Continues on peritoneal dialysis, PD solution osmolarity increased as per nephrology with oral diuretics added. Entresto added as per cardiology. 08/15/2023 hypertensive, hydralazine increased. Maintained on PD. Entresto initiated yesterday as per cardiology. Continues on oral Lasix .Maintaining O2 sats in the high 90s on room air. Denies chest pain, palpitations or increase in shortness of breath. Complains of productive congested cough with clear phlegm. Labs pending. Afebrile. Objective - Vital Signs Vital signs: Vital Signs Temp 97.9 F 08/15/23 11:38 Pulse 74 08/15/23 11:38 Resp 17 08/15/23 11:38 BP 116/69 08/15/23 11:38 Pulse Ox 98 08/15/23 08:00 FiO2 Intake & Output 08/14/23 08/15/23 08/15/23 18:59 06:59 18:59 Intake Total 299.167 236 Balance 299.167 236 Weight 88.451 kg 87.7 kg Intake: Intake, IV Titration 59.167 Amount Heparin Sod,Pork in 0.45% 59.167 NaCl 25,000 unit In 0.45 % NaCl 1 250ml.bag @ 11. 3057 UNITS/KG/HR 10 mls/ hr IV .Q24H [facility] Rx#: [id number] Oral 240 236 Other: Voiding Method Toilet Toilet Toilet # Voids 1 1 - Exam PHYSICAL EXAM: VITAL SIGNS: [As above] GENERAL: Alert and oriented x 3, sitting up in bed, no acute distress HEENT: Normocephalic, atraumatic conjunctivae normal. eyes normal.MMM. NECK: Supple, no JVD. CARDIOVASCULAR: S1, S2 regular. No murmur RESPIRATION: Unlabored, equal air entry, loose congested cough, decreased scattered rhonchi and fine bibasilar crackles. ABDOMEN: Soft, nondistended, nontender . No guarding. no masses palpable. Positive bowel sounds LEGS: No edema. no swelling NERVOUS SYSTEM: Cranial N 2-12 grossly normal. No focal deficits. Strength and sensation grossly intact. Skin: Warm and dry, no rash - Labs CBC & Chem 7: 08/14/23 09:52 08/15/23 08:47 Labs: Abnormal Lab Results - Last 24 Hours (Table) 08/14/23 08/15/23 Range/Units 09:52 08:47 BUN 49 H (9-20) mg/dL Creatinine 10.66 H* (0.66-1.25) mg/dL Glucose 149 H (74-99) mg/dL Calcium 7.7 L (8.4-10.2) mg/dL HDL Cholesterol 35.40 L (40.00-60.00) mg/dL Assessment and Plan Assessment: Chest discomfort with cough, flat troponin elevation, acute coronary syndrome ruled out as per cardiology Dyspnea secondary to the above Cardiomyopathy, nonischemic, prior EF reported as 35% Hypertension End-stage renal disease, on peritoneal dialysis Metabolic acidosis secondary to the above Plan: Continue on current medication regimen ,monitoring and symptomatic treat ment. Labs pending. continues on Entresto, oral Lasix and peritoneal dialysis .Increase activity as tolerated. The impression and plan of care has been dictated as directed. : I performed a history and examination of this patient, discussed the same with the dictator. I agree with the dictator's note ,documented as a scribe. Any additional findings or plans will be noted.
--- NOTE | 2023-08-15 14:55 | P.PN ---
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 with past medical history of nonischemic cardiomyopathy, end-stage renal disease on peritoneal dialysis, hypertension, hyperlipidemia. Patient states that he is being worked up to get on the kidney transplant list and underwent a cardiac catheterization at [facility] and 02/20/2023 which revealed right dominant, left main artery is absent. There is dual ostia. LAD artery is normal and diagonal artery is normal. Left circumflex normal as well as OM and RCA, PDA and PLB normal. Patient also recently underwent MRI of the heart which revealed LVEF of 35%, moderate concentric LV hypertrophy with noted thickness to 15 mm in the septum and lateral kim. Right ventricle is normal in size with borderline reduced systolic function. Calculated RV V EF is 51%. No significant cardio valvular abnormalities. Trace pericardial effusion. Large right pleural effusion noted. Patient presented to the hospital due to chest pain that started at rest with left upper extremity radiation. Patient also complains of cough with occasional clear sputum production. EKG sinus rhythm Chest x-ray: No acute process. WBC 6.5, hemoglobin 12.4. Sodium 142, potassium 4.5, chloride 108, CO2 20, BUN 59 creatinine 9.9. Glucose 134. Calcium 7. Phosphorus 8.4. Liver function tests are normal. Magnesium 1.9. Troponin 0.162, 0.149, 0.128, 0.13. proBNP 12,400. Influenza A, influenza B, RSV, COVID-19 not detected. Home cardiac medications: Amlodipine 10 mg daily, atorvastatin 20 mg daily, Coreg 25 mg twice daily, Lasix 40 mg daily as needed, hydralazine 50 mg daily, losartan 25 mg daily, sodium bicarb 650 mg twice daily. 08/14 Patient is seen today in follow-up. Blood pressure this morning 153/92, heart rate in the 70s and 80s, pulse ox 96% on room air. Repeat blood work reveals sodium 141, potassium 3.8, BUN 49 creatinine 10.6. Triglycerides 103, cholesterol 88, LDL 32, HDL 35. Physical examination: Gen: This is a 52-year-old male in no acute distress. VS: reviewed HEENT: Head is atraumatic, normocephalic. Pupils equal, round. Sclerae is anicteric. NECK: Supple. No JVD. LUNGS: Clear to auscultation. No wheezes or rhonchi. No intercostal retractions. HEART: Regular rate and rhythm. No murmur. ABDOMEN: Soft No tenderness. EXTREMITIES: No pedal edema. No calf tenderness. NEUROLOGICAL: Patient is awake, alert and oriented x3. Assessment: Flat troponin elevation not indicative of acute coronary syndrome Nonischemic cardiomyopathy with previous EF of 35% End-stage renal disease on peritoneal dialysis Hypertension Plan: Continue patient's home cardiac medications Continue patient on Entresto 24 mg - 26 mg 1 twice daily Patient instructed to hold hydralazine if his blood pressure is low. Do not hold Coreg or Entresto. Lasix managed by nephrology No need to repeat echocardiogram Further recommendations to follow based upon clinical course Nurse practitioner note has been reviewed, I agree with documented findings and plan of care. Patient was seen and examined. Objective - Vital Signs Vital signs: Vital Signs Temp 98 F 08/15/23 08:00 Pulse 79 08/15/23 08:00 Resp 16 08/15/23 08:00 BP 153/92 08/15/23 08:00 Pulse Ox 98 08/15/23 08:00 FiO2 Intake & Output 08/14/23 08/15/23 08/15/23 18:59 06:59 18:59 Intake Total 299.167 118 Balance 299.167 118 Weight 88.451 kg 87.7 kg Intake: Intake, IV Titration 59.167 Amount Heparin Sod,Pork in 0.45% 59.167 NaCl 25,000 unit In 0.45 % NaCl 1 250ml.bag @ 11. 3057 UNITS/KG/HR 10 mls/ hr IV .Q24H [facility] Rx#: [id number] Oral 240 118 Other: Voiding Method Toilet Toilet Toilet # Voids 1 1 - Labs CBC & Chem 7: 08/14/23 09:52 08/15/23 08:47 Labs: Abnormal Lab Results - Last 24 Hours (Table) 08/14/23 08/14/23 08/14/23 Range/Units 09:52 09:52 11:07 Hgb 12.4 L (13.0-17.5) gm/dL Hct 37.0 L (39.0-53.0) % APTT 47.5 H (22.0-30.0) sec BUN (9-20) mg/dL Creatinine (0.66-1.25) mg/dL Glucose (74-99) mg/dL Calcium (8.4-10.2) mg/dL HDL Cholesterol 35.40 L (40.00-60.00) mg/dL 08/15/23 Range/Units 08:47 Hgb (13.0-17.5) gm/dL Hct (39.0-53.0) % APTT (22.0-30.0) sec BUN 49 H (9-20) mg/dL Creatinine 10.66 H* (0.66-1.25) mg/dL Glucose 149 H (74-99) mg/dL Calcium 7.7 L (8.4-10.2) mg/dL HDL Cholesterol (40.00-60.00) mg/dL
[2023-08-15] MEDS: hydrALAZINE HCL 50 MG TAB PO SCH (15:56)
[2023-08-16 06:39] VITALS: RESP 16
[2023-08-16] MEDS: ASPIRIN 81 MG PO SCH (09:22)
[2023-08-16 10:51] VITALS: TEMP 97.9
--- NOTE | 2023-08-16 11:31 | P.PN ---
Subjective Patient is seen in follow-up for end-stage renal disease. He is maintained on peritoneal dialysis. No problems with PD exchanges. No active complaints. Plan for discharge home today. Denies chest pain or shortness of breath. Vital signs are stable. General: No acute distress. HEENT: Head exam is unremarkable. LUNGS: No audible rhonchi or wheezes. HEART: Rate and Rhythm are regular. ABDOMEN: Nontender. EXTREMITITES: No edema. Objective - Vital Signs Vital signs: Vital Signs Temp 97.9 F 08/16/23 08:00 Pulse 93 08/16/23 08:00 Resp 16 08/16/23 08:00 BP 123/65 08/16/23 08:00 Pulse Ox 96 08/16/23 08:00 FiO2 Intake & Output 08/15/23 08/16/23 08/16/23 18:59 06:59 18:59 Intake Total 354 300 Balance 354 300 Weight 87.2 kg Intake: Oral 354 300 Other: Voiding Method Toilet Toilet Toilet # Voids 1 # Bowel Movements 1 - Labs CBC & Chem 7: 08/14/23 09:52 08/15/23 08:47 Assessment and Plan Plan: Assessment: 1. End-stage renal disease maintained on peritoneal dialysis. 2. Hypertension with chronic kidney disease. Controlled. 3. Chronic kidney disease mineral bone disease maintained on calcitriol. Phosphorus level 8.4 dated August 13, 2023. On PhosLo. 4. Chest pain. Rule out acute coronary syndrome. S/p heparin drip. Cardiology following. 5. Metabolic acidosis secondary to chronic kidney disease maintained on oral bicarb. Plan: Maintain PD exchanges. Maintain Lasix. Stable for discharge from nephrology standpoint.
--- NOTE | 2023-08-16 13:28 | P.PN ---
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 Patient states that he is being worked up to get on the kidney transplant list and underwent a cardiac catheterization at [facility] and 02/20/2023 which revealed right dominant, left main artery is absent. There is dual ostia. LAD artery is normal and diagonal artery is normal. Left circumflex normal as well as OM and RCA, PDA and PLB normal. Patient also recently underwent MRI of the heart which revealed LVEF of 35%, moderate concentric LV hypertrophy with noted thickness to 15 mm in the septum and lateral kim. Right ventricle is normal in size with borderline reduced systolic function. Calculated RV V EF is 51%. No significant cardio valvular abnormalities. Trace pericardial effusion. Large right pleural effusion noted. Patient presented to the hospital due to chest pain that started at rest with left upper extremity radiation. Patient also complains of cough with occasional clear sputum production. EKG sinus rhythm Chest x-ray: No acute process. WBC 6.5, hemoglobin 12.4. Sodium 142, potassium 4.5, chloride 108, CO2 20, BUN 59 creatinine 9.9. Glucose 134. Calcium 7. Phosphorus 8.4. Liver function tests are normal. Magnesium 1.9. Troponin 0.162, 0.149, 0.128, 0.13. proBNP 12,400. Influenza A, influenza B, RSV, COVID-19 not detected. Home cardiac medications: Amlodipine 10 mg daily, atorvastatin 20 mg daily, Coreg 25 mg twice daily, Lasix 40 mg daily as needed, hydralazine 50 mg daily, losartan 25 mg daily, sodium bicarb 650 mg twice daily. 08/14 Patient is seen today in follow-up. Blood pressure this morning 153/92, heart rate in the 70s and 80s, pulse ox 96% on room air. Repeat blood work reveals sodium 141, potassium 3.8, BUN 49 creatinine 10.6. Triglycerides 103, cholesterol 88, LDL 32, HDL 35. 08/15 Heart rate is running in the 80s to 90s, blood pressure 91/62. Patient is currently on oral Lasix 80 mg daily. We have started the patient on Entresto. No repeat blood work today. Physical examination: Gen: This is a 52-year-old male in no acute distress. VS: reviewed HEENT: Head is atraumatic, normocephalic. Pupils equal, round. Sclerae is anicteric. NECK: Supple. No JVD. LUNGS: Clear to auscultation. No wheezes or rhonchi. No intercostal retractions. HEART: Regular rate and rhythm. No murmur. ABDOMEN: Soft No tenderness. EXTREMITIES: No pedal edema. No calf tenderness. NEUROLOGICAL: Patient is awake, alert and oriented x3. Assessment: Flat troponin elevation not indicative of acute coronary syndrome Nonischemic cardiomyopathy with previous EF of 35% End-stage renal disease on peritoneal dialysis Hypertension Plan: Continue current cardiac medications Continue patient on Entresto 24 mg - 26 mg 1 twice daily Discontinue hydralazine Change Lasix to 40 mg oral daily Patient is cleared for discharge from cardiology and may follow-up with his primary reactor fueling supervisor in 1 to 2 weeks. Nurse practitioner note has been reviewed, I agree with documented findings and plan of care. Patient was seen and examined. Objective - Vital Signs Vital signs: Vital Signs Temp 97.9 F 08/16/23 08:00 Pulse 93 08/16/23 08:00 Resp 16 08/16/23 08:00 BP 123/65 08/16/23 08:00 Pulse Ox 95 08/16/23 13:05 FiO2 Intake & Output 08/15/23 08/16/23 08/16/23 18:59 06:59 18:59 Intake Total 354 537 Balance 354 537 Weight 87.2 kg Intake: Oral 354 537 Other: Voiding Method Toilet Toilet Toilet # Voids 1 # Bowel Movements 1 - Labs CBC & Chem 7: 08/14/23 09:52 08/15/23 08:47
--- NOTE | 2023-08-16 14:07 | P.DS ---
Providers Date of admission: 08/13/23 07:18 Expected date of discharge: 08/16/23 Attending physician: Pineda Powell MD Consults: 08/13/23 07:18 Consult Physician Urgent Consulting Provider: Kit Hamilton Consult Reason/Comments: coronary syndrome Do you want consulting provider notified?: Already Contacted 08/13/23 08:15 Consult Physician Routine Consulting Provider: Wilber Jeter Consult Reason/Comments: CAPD patient Do you want consulting provider notified?: Yes Primary care physician: Guadal[facility] Course: Final Diagnoses: Chest discomfort with cough, flat troponin elevation, acute coronary syndrome ruled out as per cardiology Dyspnea secondary to the above Cardiomyopathy, nonischemic, prior EF reported as 35% Hypertension End-stage renal disease, on peritoneal dialysis Metabolic acidosis secondary to the above, maintained on oral bicarb Hospital course:This is a 52-year-old gentleman with past medical history of cardiomyopathy-nonischemic, end-stage renal disease on peritoneal dialysis hypertension, hyperlipidemia. 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 Reports he recently underwent a cardiac catheterization at [facility] last February 2023 reporting normal coronaries. Presented to the ER with complaints of progressive shortness of breath, chest discomfort with cough- productive clear sputum.Denies nausea vomiting or diarrhea .denies constipation. Denies abdominal pain. Reports Clear Dialysate. Troponin 0.162, 0.149, 0.128, 0.130 .EKG reported sinus rhythm, chest x-ray nonacute. Viral studies negative. Afebrile, normal WBC, hemoglobin 12.4, platelets 14, sodium 142, potassium 4.5, bicarb 20, BUN 59, creatinine 9.96, calcium 7, phosphorus 8.4, magnesium 1.9, proBNP 12,400. Continues on peritoneal dialysis, PD solution osmolarity increased as per nephrology with oral diuretics added. Entresto added as per cardiology. 08/15/2023 hypertensive, hydralazine increased. Maintained on PD. Entresto initiated yesterday as per cardiology. Continues on oral Lasix .Maintaining O2 sats in the high 90s on room air. Denies chest pain, palpitations or increase in shortness of breath. Complains of productive congested cough with clear phlegm. Labs pending. Afebrile. 08/16/2023 blood pressures soft this morning, maintaining O2 sats in the mid 90s on room air. Hydralazine discontinued, Lasix dose decreased to 40 mg p.o. daily, continues on Entresto as per cardiology. Significant clinical improvement. Patient able to lie flat in bed, without increased shortness of breath. Coughing significantly improved occasionally exacerbated by movement. Denies chest pain, palpitations or increased shortness of breath. Denies lightheadedness, dizziness or focal deficits. Cleared by cardiology and nephrology for discharge. Patient be discharged home today in a stable condition with guarded prognosis. The impression and plan of care has been dictated as directed. : I performed a history and examination of this patient, discussed the same with the dictator. I agree with the dictator's note ,documented as a scribe. Any additional findings or plans will be noted. Patient Condition at Discharge: Stable Plan - Discharge Summary Discharge Rx Participant: Yes New Discharge Prescriptions: New Magnesium Oxide [Mag-Ox] 400 mg PO DAILY tab calcitrioL [Rocaltrol] 0.5 mcg PO DAILY cap Benzonatate [Tessalon Perles] 200 mg PO TID PRN #15 cap PRN Reason: Cough Sacubitril/Valsartan [Entresto 24 mg-26 mg Tablet] 1 each PO BID #60 tab Calcium Acetate [PhosLo] 667 mg PO TID-W/MEALS #0 tab Aspirin EC [Ecotrin Low Dose] 81 mg PO DAILY #30 tab Continue Sodium Bicarbonate Tab 650 mg PO BID Cetirizine HCl [Zyrtec] 10 mg PO DAILY carvediloL [Coreg] 25 mg PO BID Atorvastatin Calcium 20 mg PO DAILY Changed Furosemide [Lasix] 40 mg PO DAILY #30 tab Discontinued Losartan [Cozaar] 25 mg PO DAILY hydrALAZINE HCL 50 mg PO DAILY calcitrioL [Rocaltrol] 1.5 mcg PO MO amLODIPine [Norvasc] 10 mg PO DAILY Discharge Medication List Atorvastatin Calcium 20 mg PO DAILY 12/08/22 [History] Cetirizine HCl [Zyrtec] 10 mg PO DAILY 12/08/22 [History] Sodium Bicarbonate Tab 650 mg PO BID 12/08/22 [History] carvediloL [Coreg] 25 mg PO BID 08/13/23 [History] Aspirin EC [Ecotrin Low Dose] 81 mg PO DAILY #30 tab 08/16/23 [Rx] Benzonatate [Tessalon Perles] 200 mg PO TID PRN #15 cap 08/16/23 [Rx] Calcium Acetate [PhosLo] 667 mg PO TID-W/MEALS #0 tab 08/16/23 [Rx] Furosemide [Lasix] 40 mg PO DAILY #30 tab 08/16/23 [Rx] Magnesium Oxide [Mag-Ox] 400 mg PO DAILY tab 08/16/23 [Rx] Sacubitril/Valsartan [Entresto 24 mg-26 mg Tablet] 1 each PO BID #60 tab 08/16/23 [Rx] calcitrioL [Rocaltrol] 0.5 mcg PO DAILY cap 08/16/23 [Rx] Follow up Appointment(s)/Referral(s): Karla Fitzpatrick MD [STAFF PHYSICIAN] - 1 Week Pineda Powell MD [STAFF PHYSICIAN] - 3 Days Patient Instructions/Handouts: Chronic Kidney Disease (DC), Acute Coronary Syndrome (DC), Peritoneal Dialysis (DC) Activity/Diet/Wound Care/Special Instructions: PD as per nephrology
[2023-08-16 14:21] VITALS: BP 102/68; PULSE 89
[2023-08-17] MEDS ORDERED: FUROSEMIDE 40 MG TAB PO SCH (09:00)
== END 2023-08-16 15:16 | disposition home or self-care (01) ==
LOC: EC 04:04 → INTOOBSV 07:18 → 3SCARD 07:18
PROVIDERS: ADMIT Family Medicine; ATTEND Family Medicine
DX: R07.89 Other chest pain (principal); R06.00 Dyspnea, unspecified; I12.0 Hypertensive chronic kidney disease with stage 5 chronic kidney disease or end stage renal disease; N18.6 End stage renal disease; I42.8 Other cardiomyopathies; E87.20 Acidosis, unspecified; E78.5 Hyperlipidemia, unspecified; Z76.82 Awaiting organ transplant status; Z82.49 Family history of ischemic heart disease and other diseases of the circulatory system; Z99.2 Dependence on renal dialysis; Z79.899 Other long term (current) drug therapy; Z11.52 Encounter for screening for COVID-19
CPT/HCPCS: 96365; 96366 ×2; 96375 ×2; 96376 ×2; 99285; 36415; 94760; 93005; 83880; 80061; 80053; 80048; 83735 ×2; 84100; 84484; 85025 ×2; 85610 ×2; 85730 ×2; 87636; 71046; G0378 ×4; J2270; J0360; J1940; A4722 ×5; J1644 ×3; C9113 ×3

== ENCOUNTER 2024-02-04 10:43 | Day surgery (SDC) | payer MEDICARE ==
[2024-01-31 09:21] VITALS: BMI 30.2
[~2024-02-04 10:43] MED LIST changes: -ACETAMINOPHEN TAB 500 MG TAB PO PRN; -DEXAMETHASONE SOD PHOSPHATE 4 MG/ML 1 ML VIAL IV ONE; -HEPARIN SODIUM,PORCINE/PF 5,000 UNIT/0.5 ML SYRINGE SQ PRN; -HYDROmorphone 0.5 MG/0.5 ML SYRINGE IVP PRN; -ONDANSETRON 4 MG/2 ML VIAL IVP ONE; +droPERidol 5 MG/2 ML VIAL IVP ONE
[2024-02-04 11:44] LABS: Glucose,Whole Blood 88 mg/dL (70-110)
[2024-02-04] MEDS: ACETAMINOPHEN TAB 500 MG TAB PO PRN (11:49)
[2024-02-04] MEDS: DEXAMETHASONE SOD PHOSPHATE 4 MG/ML 1 ML VIAL IV ONE (11:50)
[2024-02-04] MEDS: ONDANSETRON 4 MG/2 ML VIAL IVP PRN (11:50)
[2024-02-04] MEDS: HEPARIN SODIUM,PORCINE 5,000 UNIT/ML 1 ML VIAL SQ PRN (11:50)
[2024-02-04] MEDS: IV FLUID CONTINUATION 1,000 ML IV ONE (11:53)
[2024-02-04] MEDS: SODIUM CHLORIDE 0.9% 1,000 ML IV SCH (11:57)
[2024-02-04] MEDS ORDERED: LIDOCAINE 1% INJ 10MG/ML (20 ML MDV) ONE (12:58)
[2024-02-04] MEDS ORDERED: PROPOFOL 10 MG/ML 20 ML VIAL IV ONE (12:58)
[2024-02-04] MEDS ORDERED: ROCURONIUM 10 MG/ML (5 ML VIAL) IV ONE (12:58)
[2024-02-04] MEDS ORDERED: fentaNYL (PF) 50 MCG/ML 2 ML AMP ONE (12:58)
[2024-02-04] MEDS ORDERED: PHENYLEPHRINE 10 MG/ML VIAL ONE (12:58)
[2024-02-04] MEDS ORDERED: ePHEDrine 50 MG/ML 1 ML VIAL ONE (12:58)
[2024-02-04] MEDS ORDERED: MIDAZOLAM 2 MG/2 ML VIAL ONE (12:58)
[2024-02-04] MEDS ORDERED: GLYCOPYRROLATE 0.2 MG/ML 2 ML VIAL ONE (12:58)
[2024-02-04] MEDS ORDERED: NEOSTIGMINE 1 MG/ML 10 ML VIAL ONE (12:58)
[2024-02-04] MEDS ORDERED: WATER FOR INJECTION, STERILE 10 ML VIAL IV ONE (12:58)
[2024-02-04] MEDS: BUPIVACAINE (PF) 0.25% 30 ML VIAL SQ ONE ×2 (13:24→14:05)
--- NOTE | 2024-02-04 14:22 | P.OP ---
Date of Procedure: 02/04/24 Procedure(s) Performed: PREOPERATIVE DIAGNOSIS: Right inguinal hernia POSTOPERATIVE DIAGNOSIS: Indirect right inguinal hernia PROCEDURE: Open repair right inguinal hernia with mesh SURGEON: Dr. Mooney ANESTHESIA: General OPERATIVE PROCEDURE DETAILS: Patient was placed in the operating table in the supine position and placed under general anesthesia. An oblique incision was made in the right groin. Dissection down through the subcutaneous tissues took place using electrocautery. The external oblique fascia was incised using a scalpel. This opening was lengthened using the Metzenbaum scissors. The spermatic cord was encircled with a Kel drain. The spermatic cord structures were identified and preserved. Careful dissection revealed a large indirect hernia sac. This was carefully dissected back to the internal inguinal ring where it was ligated using 2 separate 0 silk stick tie sutures. A 3" x 6" Prolene mesh was cut to fit on the exposed fascia. This was sutured to the pubic tubercle the folding edge of the inguinal ligament and the conjoined tendon using interrupted 2 oh Vicryl sutures. A slit was created in the mesh and the mesh was wrapped around the spermatic cord and sutured back to itself. The external oblique was then reapproximated using a running 2-0 Vicryl suture. The subcutaneous tissues were reapproximated using a 3-0 Vicryl sutures. The skin was closed using 4-0 Monocryl sutures. Skin glue and sterile dressings were then applied. TYPE OF MESH USED: Flat Prolene LOCATION OF MESH: [place] FIXATION: 2-0 Vicryl PREOPERATIVE DISCUSSION ON SMOKING CESSASTION: Yes PREOPERATIVE DISCUSSION ON MORBID OBESITY: Yes PREOPERATIVE DISCUSSION ON APPROPRIATE USE OF NARCOTIC USE: Yes PREOPERATIVE EDUCATION: Multi Modal, Smoking Cessation and Weight Loss with BMI over 35. DISPOSITION: Stable to recovery room
--- NOTE | 2024-02-04 14:23 | P.GSHP ---
History of Present Illness H&P Date: 02/04/24 Chief Complaint: Right inguinal hernia 53-year-old male presents today for elective repair right inguinal hernia. Patient well-known to our service from previous peritoneal dialysis catheter placement. He was seen in August. Patient says since the August his hernia has gotten larger. Mild pain at times. He emptied his dialysis fluid this morning. Past Medical History Past Medical History: Heart Failure, Dialysis, Hyperlipidemia, Hypertension, Renal Disease Additional Past Medical History / Comment(s): gout, peritoneal dialysis History of Any Multi-Drug Resistant Organisms: None Reported Past Surgical History: Hernia Repair, Orthopedic Surgery Additional Past Surgical History / Comment(s): Right shoulder surgery, colonoscopy, arthroscopy rt knee, Fawad fundoplication, tumor removed from back, peritoneal dialysis catheter Past Anesthesia/Blood Transfusion Reactions: No Reported Reaction Additional Past Anesthesia/Blood Transfusion Reaction / Comment(s): "takes a little extra for me" Past Psychological History: No Psychological Hx Reported Smoking Status: Never smoker Past Alcohol Use History: None Reported Additional Past Alcohol Use History / Comment(s): . Past Drug Use History: None Reported - Past Family History Father Family Medical History: Renal Disease Additional Family Medical History / Comment(s): Father at age 70 from a bowel aortic aneurysm rupture. He does have a history of kidney disease and was on dialysis. Mother Additional Family Medical History / Comment(s): Mother is alive with no major medical problems. Sister(s) Additional Family Medical History / Comment(s): Patient has one sister with history of hypertension. Patient does not have any brothers. Patient has 3 children with no major medical problems. Medications and Allergies Home Medications Medication Instructions Recorded Confirmed Type carvediloL [Coreg] 25 mg PO BID 08/13/23 01/31/24 History Aspirin EC [Ecotrin Low Dose] 81 mg PO DAILY #30 tab 08/16/23 01/31/24 Rx Empagliflozin [Jardiance] 10 mg PO DAILY 01/31/24 01/31/24 History Furosemide [Lasix] 40 mg PO DIRECTED PRN 01/31/24 01/31/24 History Sacubitril/Valsartan [Entresto 49 1 each PO DIRECTED 01/31/24 01/31/24 History mg-51 mg Tablet] amLODIPine [Norvasc] 10 mg PO DAILY 01/31/24 01/31/24 History calcitrioL 0.5 mcg PO DAILY 02/04/24 02/04/24 History oxyCODONE HCL [OxyIR] 5 mg PO Q6H PRN 3 Days #6 tab 02/04/24 Rx Allergies Allergy/AdvReac Type Severity Reaction Status Date / Time lisinopril AdvReac kidney Verified 02/04/24 11:10 damage Penicillins AdvReac "doesn't Verified 02/04/24 11:10 do anything for me" Surgical - Exam Vital Signs Temp Pulse Resp BP Pulse Ox 98.1 F 70 16 141/75 96 02/04/24 11:18 02/04/24 11:18 02/04/24 11:18 02/04/24 11:18 02/04/24 11:18 Physical exam: General: Well-developed, well-nourished HEENT: Normocephalic, sclerae nonicteric Abdomen: Nontender, nondistended, reducible right inguinal hernia Extremities: No edema Neuro: Alert and oriented Results - Labs 02/04/24 11:38 Diabetes panel 02/04/24 Range/Units 11:38 Potassium 5.1 (3.5-5.1) mmol/L Pituitary panel 02/04/24 Range/Units 11:38 Potassium 5.1 (3.5-5.1) mmol/L Adrenal panel 02/04/24 Range/Units 11:38 Potassium 5.1 (3.5-5.1) mmol/L Assessment and Plan (1) Inguinal hernia Narrative/Plan: Will proceed with open repair right inguinal hernia with mesh. Risks of bleeding, infection, recurrence, bladder and bowel injury, numbness, nerve injury were discussed with the patient. The patient understands and wishes to proceed. Current Visit: Yes Status: Acute Code(s): K40.90 - UNIL INGUINAL HERNIA, W/O OBST OR GANGR, NOT SPCF RECUR SNOMED Code(s): 593259491
[2024-02-04] MEDS ORDERED: ACETAMINOPHEN TAB 325 MG TAB PO SCH (14:30)
[2024-02-04 14:36] VITALS: TEMP 97
[2024-02-04] MEDS: HYDROmorphone 0.5 MG/0.5 ML SYRINGE IVP PRN (15:15)
[2024-02-04] MEDS ORDERED: IBUPROFEN 600 MG TAB PO SCH (17:30)
[2024-02-04 19:21] VITALS: RESP 16
[2024-02-04 20:02] VITALS: BP 148/90; PULSE 78
== END 2024-02-04 20:25 | disposition home or self-care (01) ==
LOC: OR 10:43
PROVIDERS: ATTEND Surgery
DX: K40.90 Unilateral inguinal hernia, without obstruction or gangrene, not specified as recurrent
CPT/HCPCS: 84132; 88302

== ENCOUNTER → 2024-03-25 | Outpatient (CLI) | payer MEDICARE ==
--- NOTE | 2024-03-25 10:54 | CT ---
EXAMINATION TYPE: CT chest wo con DATE OF EXAM: 03/25/2024 9:04 AM COMPARISON: 12/10/2022 08/13/2023 CLINICAL INDICATION: Male, 53 years old with history of R91.8 ABNORMAL LUNG FIELD R05; PHH, Cough x 9 days, abnormal lung yeh TECHNIQUE: Multiple axial images were obtained through the chest. Sagittal and coronal reformats were created for review. MIP was performed on a separate workstation. Contrast used: mL of (None if empty) Oral contrast used: (None if empty) CT DLP: 504.10 mGycm, Automated exposure control for dose reduction was used. FINDINGS: LUNGS/ PLEURA: Moderate right pleural effusion. No left pleural effusion No evidence of focal consoli dation or pneumothorax. AIRWAY: Patent and unremarkable. HEART: Size within normal limits. MEDIASTINUM: No gross evidence of adenopathy. VASCULATURE: No aortic aneurysm. MUSCULOSKELETAL: No acute osseous abnormalities SOFT TISSUES/LYMPH NODES: Inferior left thyroid nodular goiter. LOWER NECK: No significant findings. UPPER ABDOMEN: Multicystic kidneys bilaterally. Trace free fluid around the liver. Postsurgical clips around the gastric esophageal junction. IMPRESSION: 1. Moderate right pleural effusion new from prior chest radiograph 08/13/2023. No evidence for focal c onsolidation or pneumothorax. 2. Multicystic kidneys bilaterally. Correlate for polycystic kidney disease. [facility], , 03/25/2024 10:52 AM
== END | disposition home or self-care (01) ==
LOC: RADCTMAIN 08:25
PROVIDERS: ATTEND Family Medicine
DX: J18.9 Pneumonia, unspecified organism (principal); R91.8 Other nonspecific abnormal finding of lung field; J90 Pleural effusion, not elsewhere classified; Q61.3 Polycystic kidney, unspecified
CPT/HCPCS: 71250

== ENCOUNTER → 2024-05-08 | Day surgery (SDC) | payer MEDICARE ==
[~2024-05-08] MED LIST changes: -LACTATED RINGERS 1,000 ML IV SCH; -LIDOCAINE 1% (10MG/ML) FOR IV START INTRADERMA PRN; +SODIUM CHLORIDE 0.9% 250 ML in EMPTY BAG 1 BAG IV PRN; +SODIUM CHLORIDE 0.9% 500 ML 500 ML in EMPTY BAG 1 BAG IV PRN; -droPERidol 5 MG/2 ML VIAL IVP ONE
[2024-05-08 09:20] VITALS: RESP 18; TEMP 97.9
[2024-05-08] MEDS: ATROPINE SULFATE 0.4 MG/ML 1 ML VIAL IM STA (09:31)
[2024-05-08 11:01] VITALS: BP 168/101; PULSE 118
--- NOTE | 2024-05-08 11:19 | XR ---
EXAMINATION TYPE: XR chest 1V portable DATE OF EXAM: 05/08/2024 10:53 AM COMPARISON: CT 03/25/2024 CLINICAL INDICATION: Male, 53 years old with history of POST RIGHT THORACENTESIS, , FINDINGS: Heart upper limits of normal in size. Hyperinflation. No sizable right pleural effusion remains. Some strandy atelectasis at the right lung base. No appreciable pneumothorax. IMPRESSION: No appreciable right pleural effusion remains. No pneumothorax seen. [facility], , 05/08/2024 11:17 AM
[2024-05-09 03:54] LABS: Glucose, BF Source Pleural fluid; Glucose, Body Fluid 112 mg/dL; LDH, Body Fluid Source Pleural fluid; T. Protein, Body Fluid Source Pleural fluid; Total Protein, Body Fluid 942 mg/dL
[2024-05-09 05:31] LABS: Appearance,BF Clear (Clear)
--- NOTE | 2024-05-22 19:52 | PCN ---
PROCEDURE NOTE PROCEDURE: Right-sided thoracentesis. PREOPERATIVE DIAGNOSIS: Right pleural effusion. POSTOPERATIVE DIAGNOSIS: Right pleural effusion. PARTS AND SERVICE MANAGER: Dr. Soto. There was informed consent and universal timeout. The patient's procedure took place in the [address] [place] [address]. The posterior chest was marked by ultrasound. Indication Pleural effusion. A time-out was completed verifying correct patient, procedure, site, positioning , and implant (s) or special equipment if applicable. Ultrasound guidance was/was not used and appropriate fluid pocket was identified and marked. Patient was positioned, prepped and draped in usual sterile fashion. Lidocaine was used to anesthetize the area. A Thoracentesis catheter was introduced into the pleural space and fluid was removed. Blood loss was none. A chest x-ray was ordered to evaluate for pneumothorax. 2900 mL of light yellow fluid was removed from the right pleural space. The fluid was sent for analysis. It was a transudate. Cytology was negative. There was no immediate complication. The chest x-ray did not reveal a pneumothorax. The patient tolerated the procedure well without difficulty. There was informed consent and universal timeout. MMODL / IJN: [id number] / [facility]
== END ==
LOC: PROCWHC3 09:01
PROVIDERS: ATTEND Internal Medicine Critical Care Medicine
DX: J90 Pleural effusion, not elsewhere classified (principal); J18.9 Pneumonia, unspecified organism; N08 Glomerular disorders in diseases classified elsewhere; Z88.0 Allergy status to penicillin; Z79.02 Long term (current) use of antithrombotics/antiplatelets; Z79.899 Other long term (current) drug therapy
CPT/HCPCS: 87798 ×3; 87496; 87498; 87529; 88108; 88305; 89050; 87502; 87634; 87070; 87205; 87075; 87116; 87102; 87206; 82945; 83615; 84157; 87635; 71045; 96372; 32554; J0461

== ENCOUNTER → 2024-05-08 | Outpatient (CLI) | payer MEDICARE, OTHER ==
--- NOTE | 2024-05-08 12:04 | US ---
EXAMINATION TYPE: US chest DATE OF EXAM: 05/08/2024 COMPARISON: CT chest 03/25/2024 CLINICAL INDICATION: Male, 53 years old with history of J90 PLEURAL EFFUSION, NOT ELSEWHERE CLASSIFIE D; TECHNIQUE: Grayscale imaging of the chest. Targeted ultrasound of the posterior lower right hemithor ax FINDINGS: EXAM MEASUREMENTS: Right Pleural Effusion pocket size: 11.1 cm Right skin surface to fluid distance: 2.2 cm Left Pleural Effusion pocket size: NA cm Left skin surface to fluid distance: NA cm Right side marked for possible thoracentesis outside the dept. Pulmonologists are able to review the images in the patient?s EMR. IMPRESSIONS: Moderate size right pleural effusion. [facility], , 05/08/2024 12:01 PM
== END | disposition home or self-care (01) ==
LOC: RADUSWWP 08:48
PROVIDERS: ATTEND Internal Medicine Critical Care Medicine
DX: J90 Pleural effusion, not elsewhere classified (principal)
CPT/HCPCS: 76604

== ENCOUNTER → 2024-05-27 | Day surgery (SDC) | payer MEDICARE ==
[2024-05-27 12:19] VITALS: RESP 16; TEMP 97.5
[2024-05-27] MEDS: ATROPINE SULFATE 0.4 MG/ML 1 ML VIAL IM NR (12:25)
[2024-05-27 13:10] VITALS: BP 183/101; PULSE 110
--- NOTE | 2024-05-27 13:13 | XR ---
EXAMINATION TYPE: XR chest 1V portable DATE OF EXAM: 05/27/2024 COMPARISON: 05/08/2024 CLINICAL INDICATION: Male, 53 years old with history of POST RIGHT THORACENTESIS; , TECHNIQUE: XR chest 1V portable views of the chest. FINDINGS: The lungs are clear and there is no pneumothorax, pleural effusion, or focal pneumonia. Heart size normal elevated left hemidiaphragm. And no overt failure. Osseous structures demonstrate hypertrophic and degenerative changes of the spine. IMPRESSION: 1. No pneumothorax or sizable right-sided pleural fluid collection. [facility], , 05/27/2024 1:11 PM
--- NOTE | 2024-05-27 14:29 | PCN ---
PROCEDURE NOTE PROCEDURE PERFORMED: Right-sided thoracentesis. PREOPERATIVE DIAGNOSIS: Right pleural effusion. POSTOPERATIVE DIAGNOSIS: Right pleural effusion. Posterior chest was marked by ultrasound. GREY STOCK RECORDER: Dr. Soto. GLUE JOINTER FEEDER: Martha Alexis. DESCRIPTION OF PROCEDURE: There was informed consent and universal timeout. The patient's procedure took place at [address] We removed 1.3 L of the light yellow fluid from the right pleural space. The patient tolerated the procedure well. There was no immediate complication. The fluid will not be sent for analysis. The previous fluid was analyzed and found to be a benign transudate. The fluid will be discarded. A chest x-ray was ordered. There was no immediate complication. The patient tolerated the procedure well without issues. MMODL / IJN: [id number] /
== END ==
LOC: PROCWHC3 12:10
PROVIDERS: ATTEND Internal Medicine Critical Care Medicine
DX: J90 Pleural effusion, not elsewhere classified (principal)
CPT/HCPCS: 71045; 96372; 32554; J0461

== ENCOUNTER → 2024-05-27 | Outpatient (CLI) | payer MEDICARE ==
--- NOTE | 2024-05-27 12:14 | US ---
EXAMINATION TYPE: US chest DATE OF EXAM: 05/27/2024 COMPARISON: US(05/08/2024) CLINICAL INDICATION: Male, 53 years old with history of J90 PLEURAL EFFUSION; rt sided pleural effusi on TECHNIQUE: Grayscale imaging of the chest. Targeted ultrasound of the posterior lower right hemithor ax FINDINGS: EXAM MEASUREMENTS: Right Pleural Effusion pocket size: 17.7cm Right skin surface to fluid distance: 4.0cm Fluid to lung tissue: 9.4cm Right side marked for possible thoracentesis outside the dept. Pulmonologists are able to review the images in the patient?s EMR. IMPRESSIONS: Large right pleural effusion [facility], , 05/27/2024 12:11 PM
== END | disposition home or self-care (01) ==
LOC: RADUSWWP 11:49
PROVIDERS: ATTEND Internal Medicine Critical Care Medicine
DX: J90 Pleural effusion, not elsewhere classified (principal)
CPT/HCPCS: 76604

== ENCOUNTER 2024-09-09 00:54 | Inpatient (IN) | payer MEDICARE, OTHER ==
--- NOTE | 2024-09-09 01:06 | ED ---
Chest Pain HPI - General Chief Complaint: Chest Pain Stated Complaint: HO Time Seen by Provider: 09/09/24 00:57 Source: patient, family, RN notes reviewed, old records reviewed Mode of arrival: wheelchair Limitations: no limitations - History of Present Illness Initial Comments: This is a 53 male who does at home peritoneal dialysis coming in for severe chest pain and severe shortness of breath. Patient is feels like the chest pain is left-sided but he has history of right-sided pleural effusion and states he feels like he has recurrent pleural effusion here in the ER. No travels or sick contacts. No fevers cough or congestion MD Complaint: chest pain, other (Shortness of breath) -: days(s) Onset: during rest, during exertion Pain Location: left chest, right chest Severity: moderate Severity scale (1-10): 7 Consistency: constant Improves With: nothing Worsens With: nothing Anginal Symptoms: diaphoresis, dyspnea Other Symptoms: palpitations Treatments Prior to Arrival: none - Related Data Home Medications Medication Instructions Recorded Confirmed carvediloL [Coreg] 25 mg PO BID 08/13/23 05/27/24 Empagliflozin [Jardiance] 10 mg PO DAILY 01/31/24 05/27/24 Furosemide [Lasix] 40 mg PO DIRECTED PRN 01/31/24 05/27/24 Sacubitril/Valsartan [Entresto 49 1 each PO DIRECTED 01/31/24 05/27/24 mg-51 mg Tablet] amLODIPine [Norvasc] 10 mg PO DAILY 01/31/24 05/27/24 calcitrioL [Rocaltrol (GEQ)] 0.5 mcg PO DAILY 02/04/24 05/27/24 Previous Rx's Medication Instructions Recorded Aspirin EC [Ecotrin Low Dose] 81 mg PO DAILY #30 tab 08/16/23 oxyCODONE HCL [OxyIR] 5 mg PO Q6H PRN 3 Days #6 tab 02/04/24 Allergies Allergy/AdvReac Type Severity Reaction Status Date / Time lisinopril AdvReac kidney Verified 09/09/24 00:58 damage Penicillins AdvReac "doesn't Verified 09/09/24 00:58 do anything for me" Review of Systems ROS Statement: Those systems with pertinent positive or pertinent negative responses have been documented in the HPI. ROS Other: All systems not noted in ROS Statement are negative. EKG Findings - EKG Comments: EKG Findings:: EKG is sinus 82 IN 184 QRS 103 QTc 423 - EKG Results: EKG: interpreted by CRUZ Past Medical History Past Medical History: Heart Failure, Dialysis, Hyperlipidemia, Hypertension, Renal Disease Additional Past Medical History / Comment(s): gout, peritoneal dialysis History of Any Multi-Drug Resistant Organisms: None Reported Past Surgical History: Hernia Repair, Orthopedic Surgery Additional Past Surgical History / Comment(s): Right shoulder surgery, colonoscopy, arthroscopy rt knee, Fawad fundoplication, tumor removed from [place], peritoneal dialysis catheter Past Anesthesia/Blood Transfusion Reactions: No Reported Reaction Additional Past Anesthesia/Blood Transfusion Reaction / Comment(s): "takes a little extra for me" Past Psychological History: No Psychological Hx Reported Smoking Status: Never smoker - Past Family History Father Family Medical History: Renal Disease Additional Family Medical History / Comment(s): Father at age 70 from a bowel aortic aneurysm rupture. He does have a history of kidney disease and was on dialysis. Mother Additional Family Medical History / Comment(s): Mother is alive with no major medical problems. Sister(s) Additional Family Medical History / Comment(s): Patient has one sister with history of hypertension. Patient does not have any brothers. Patient has 3 children with no major medical problems. General Exam Limitations: no limitations General appearance: alert, in no apparent distress Head exam: Present: atraumatic, normocephalic, normal inspection Eye exam: Present: normal appearance, PERRL, EOMI. Absent: scleral icterus, conjunctival injection, periorbital swelling ENT exam: Present: normal exam, mucous membranes moist Neck exam: Present: normal inspection. Absent: tenderness, meningismus, lymphadenopathy Respiratory exam: Present: normal lung sounds bilaterally. Absent: respiratory distress, wheezes, rales, rhonchi, stridor Cardiovascular Exam: Present: regular rate, normal rhythm, normal heart sounds. Absent: systolic murmur, diastolic murmur, rubs, gallop, clicks GI/Abdominal exam: Present: soft, normal bowel sounds. Absent: distended, tenderness, guarding, rebound, rigid Extremities exam: Present: normal inspection, full ROM, normal capillary refill. Absent: tenderness, pedal edema, joint swelling, calf tenderness Back exam: Present: normal inspection Neurological exam: Present: alert, oriented X3, CN II-XII intact Psychiatric exam: Present: normal affect, normal mood Skin exam: Present: warm, dry, intact, normal color. Absent: rash Course Vital Signs 09/09/24 09/09/24 09/09/24 00:55 01:00 01:27 Temperature 97.3 F L Pulse Rate 95 85 Respiratory 22 18 Rate Blood Pressure 214/136 202/122 O2 Sat by Pulse 96 Oximetry 09/09/24 01:45 Temperature Pulse Rate Respiratory Rate Blood Pressure 188/109 O2 Sat by Pulse Oximetry - Reevaluation(s) Reevaluation #1: 09/09/24 02:57 Medical records reviewed Reevaluation #2: 09/09/24 02:57 Patient symptoms unchanged Reevaluation #3: 09/09/24 02:57 Patient informed of results questions answered Reevaluation #4: Was pt. sent in by a medical professional or institution (, PA, WHEEL BRAIDER, urgent care, hospital, or [place] [facility] care facility...) When possible be specific @ -no Did you speak to anyone other than the patient for history (EMS, parent, family, police, friend...)? What history was obtained from this source @ -no Did you review nursing and triage notes (agree or disagree)? Why? @ -agree Are old charts reviewed (outside hosp., previous admission, EMS record, old EKG, old radiological studies, urgent care reports/EKG's, [place] health care facility records)? Report findings @ -yes Differential Diagnosis (chest pain, altered mental status, abdominal pain women, abdominal pain men, vaginal bleeding, weakness, fever, dyspnea, syncope, headache, dizziness, GI bleed, back pain, seizure, CVA, palpatations, mental health, musculoskeletal)? @ -prior EKG interpreted by me (3pts min.). @ -yes X-rays interpreted by me (1pt min.). @ -yes negative for acute disease CT interpreted by me (1pt min.). @ -no U/S interpreted by me (1pt. min.). @ -no What testing was considered but not performed or refused? (CT, X-rays, U/S, labs)? Why? @ -none What meds were considered but not given or refused? Why? @ -none Did you discuss the management of the patient with other professionals (professionals i.e. , PA, WHEEL BRAIDER, lab, RT, psych nurse, social group worker, airport shuttle driver, teacher, signals officer, senior case manager)? Give summary @ -no Was smoking cessation discussed for >3mins.? @ -no Was critical care preformed (if so, how long)? @ -no Were there social determinants of health that impacted care today? How? (Homelessness, low income, unemployed, alcoholism, drug addiction, transpo rtation, low edu. Level, literacy, decrease access to med. care, fpc, rehab)? @ -none Was there de-escalation of care discussed even if they declined (Discuss DNR or withdrawal of care, Hospice)? DNR status @ -no What co-morbidities impacted this encounter? (DM, HTN, Smoking, COPD, CAD, Cancer, CVA, ARF, Chemo, Hep., AIDS, mental health diagnosis, sleep apnea, morbid obesity)? @ -none Was patient admitted / discharged? Hospital course, mention meds given and route, prescriptions, significant lab abnormalities, going to OR and other pertinent info. @ - Undiagnosed new problem with uncertain prognosis? @ -no Drug Therapy requiring intensive monitoring for toxicity (Heparin, Nitro, Insulin, Cardizem)? @ -no Were any procedures done? @ -no Diagnosis/symptom? @ - Acute, or Chronic, or Acute on Chronic? @ -Acute Uncomplicated (without systemic symptoms) or Complicated (systemic symptoms)? @ -Complicated Side effects of treatment? @ -no Exacerbation, Progression, or Severe Exacerbation? @ -exacerbation Poses a threat to life or bodily function? How? (Chest pain, [place], [place], pneumonia, PE, COPD, DKA, ARF, appy, cholecystitis, CVA, Diverticulitis, Homicidal, Suicidal, threat to staff... and all critical care pts) @ -yes Reevaluation #5: Differential Chest Pain: Stable Angina, Unstable Angina, STEMI, NSTEMI Aortic Dissection, Pneumothorax, Musculoskeletal, Esophageal Spasm GERD, Cholecystitis, Pancreatitis, Zoster, this is not meant to be an all-inclusive list. Differential Dyspnea: Coronary syndrome, arrhythmia, tamponade, asthma, COPD, pulmonary embolism, pneumonia, pneumothorax, pulmonary effusion, anaphylaxis, diabetic ketoacidosis, flailed chest, pulmonary contusion, diaphragmatic rupture, anemia, neuromuscular, this is not meant to be an all-inclusive list. - Consultations Consultation #1: Spoke with EM who agrees to admit this patient Chest Pain MDM - MDM 53 male with severe hypertension respiratory distress and chest pain significant right-sided pleural effusion patient does at home peritoneal dialysis. Patient states his dialysis exchanges have been disproportionate, patient will be admitted for evaluation of pleural effusion and dyspnea on blood pressure control Critical Care Time Critical Care Time: Yes Total Critical Care Time: 31 Disposition Clinical Impression: Renal failure, Chronic kidney disease with peritoneal dialysis preferred by patient, Pleural effusion, right, Hypertensive urgency Disposition: ADMITTED IP TO THIS HOSP Condition: Serious Is patient prescribed a controlled substance at d/c from ED?: No Referrals: Guadalupe Gregory DO [Primary Care Provider] - 1-2 days Time of Disposition: 03:00
[2024-09-09] MEDS: LABETALOL 5 MG/ML VIAL MDV IVP STA ×3 (01:29→04:23)
[2024-09-09 01:41] LABS: Basophils # (A) 0.09 10*3/uL (0.00-0.10); Basophils % (A) 0.8 %; Eosinophils # (A) 0.54 10*3/uL (0.04-0.35); Eosinophils % (A) 4.6 %; HCT 30.8 % (39.6-50.0); HGB 10.4 g/dL (13.0-17.0); Lymphocytes # (A) 1.77 10*3/uL (0.90-5.00); Lymphocytes % (A) 15.1 %; MCH 28.5 pg (27.0-32.0); MCHC 33.8 g/dL (32.0-37.0); MCV 84.4 fL (80.0-97.0); Mean Platelet Volume 9.9 fL (9.5-12.2); Monocytes # (A) 1.31 10*3/uL (0.20-1.00); Monocytes % (A) 11.2 %; Neutrophils # (A) 7.99 10*3/uL (1.80-7.70); Platelet Count 328 10*3/uL (140-440); RBC 3.65 10*6/uL (4.40-5.60); RDW 14.2 % (11.5-14.5); WBC 11.73 10*3/uL (4.50-10.00)
--- NOTE | 2024-09-09 01:45 | XR ---
EXAM: XR Chest, 1 View CLINICAL HISTORY: ITS.REASON XR Reason: chest pain TECHNIQUE: Frontal view of the chest. COMPARISON: No relevant prior studies available. FINDINGS: Lungs: See below. Pleural space: Moderate RIGHT pleural effusion. Airspace consolidation in the RIGHT perihilar region, correlate for pneumonia. No pneumothorax. Heart: Unremarkable. No cardiomegaly. Mediastinum: Unremarkable. Bones/joints: Unremarkable. IMPRESSION: Moderate RIGHT pleural effusion. Airspace consolidation in the RIGHT perihilar region, correlate for pneumonia.
[2024-09-09 01:49] LABS: Partial Thromboplastin Time 25.9 sec (22.0-30.0); Prothrombin Time 11.1 sec (10.0-12.5)
[2024-09-09 01:56] LABS: ALT 28 U/L (4-49); AST 28 U/L (17-59); Albumin 3.6 g/dL (3.5-5.0); Alkaline Phosphatase 60 U/L (38-126); Anion Gap 19 mmol/L; Blood Urea Nitrogen 73 mg/dL (9-20); Carbon Dioxide 15 mmol/L (22-30); Chloride 104 mmol/L (98-107); Glucose 80 mg/dL (74-99); Magnesium 2.2 mg/dL (1.6-2.3); Potassium 5.1 mmol/L (3.5-5.1); Sodium 138 mmol/L (137-145); Total Bilirubin 0.8 mg/dL (0.2-1.3); Total Protein 6.3 g/dL (6.3-8.2)
[2024-09-09 02:01] LABS: African American GFR (CKD) 3 (>60 ml/min/1.73 sqM); Non-African American GFR(CKD) 3 (>60 ml/min/1.73 sqM)
[2024-09-09 02:26] LABS: NT-Pro-B-Type Natriuretic Pept 40100 pg/mL
[2024-09-09] MEDS ORDERED: NALOXONE 0.4 MG/ML 1 ML VIAL IV PRN (02:54)
[2024-09-09] MEDS ORDERED: ONDANSETRON 4 MG/2 ML VIAL IVP PRN (02:54)
[2024-09-09] MEDS ORDERED: MORPHINE SULFATE 4 MG/ML SYRINGE IV PRN (02:54)
[2024-09-09 04:01] LABS: Influenza A Not Detected (Not Detectd); Influenza B Not Detected (Not Detectd); RSV Not Detected (Not Detectd)
[2024-09-09] MEDS: FUROSEMIDE 10 MG/ML 4 ML VIAL IV STA (04:25)
--- NOTE | 2024-09-09 05:10 | P.CNPUL ---
History of Present Illness Consult date: 09/09/24 Requesting physician: Wesley Sanchez Reason for consult: pleural effusion Chief complaint: Shortness of breath History of present illness: Patient is a 53-year-old male with past medical history significant end-stage renal disease. He is maintained on peritoneal dialysis. He also has a recurrent right-sided pleural effusion and multiple previous thoracentesis. Drained on 05/22/2024, a total of 2.9 L was removed from the pleural space. Subsequently, underwent right-sided thoracentesis on 05/27/2024. A total of 1.3 L was removed at that time. Historically a transudate. Patient also has past medical history significant for hypertension, hyperlipidemia, nonischemic cardiomyopathy with previously reduced ejection fraction of 35%, gout. Presented the emergency department early this morning with a chief complaint of severe shortness of breath. Associated chest tightness. Found to be severely hypertensive with a blood pressure as high as 214/136 mmHg. Given labetalol 20 mg IV push twice by the ED provider. Chest x-ray demonstrating a moderate right-sided pleural effusion with possible right perihilar airspace consolidation versus compressive atelectasis. Lab work including a CBC with a WBC count of 11.7, hemoglobin 10.4, platelets 328. PT 11, INR 1, APTT 25.9. Complete metabolic panel including a sodium 138, potassium 5.1, chloride 104, serum bicarb 15, anion gap 19, BUN 73, creatinine 16.03, glucose 80. Magnesium 2.2. LFTs not elevated. Troponin 0.328. NT proBNP 40,100. Sinus rhythm, rate 64 bpm, no acute ST segment elevations or depressions. Chronic T wave inversion in the lateral leads. Patient currently being evaluated emergency department. Blood pressure continues to be hypertensive, 192/109 mmHg. Does not appear to be in any acute distress. He is using his cell phone. On room air. Reports increased work of breathing over the last couple days. Uses a cycler at night for his peritoneal dialysis. States he is had disproportionate intake/output over the last 2 nights. Denies any abdominal pain, fevers, change in color of PD output. Repor tedly, still produces urine, and takes Lasix as needed at home. 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 Overnight, he became acutely/severely short of breath when lying down, after turning on his left side. There was some generalized chest tightness. No localized or radiating chest pain, nausea, or diaphoresis. Denies any heart palpitations, lightheadedness, syncopal events, lower extremity edema. Denies any fevers/chills, productive cough, sputum production, hemoptysis. Denies sick contacts. Occasional nonproductive cough with change in position. Patient is going to be admitted to the cardiac unit. Review of Systems Constitutional: Denies chills, Denies fatigue, Denies fever, Denies poor appetite, Denies weight gain, Denies weight loss Ears, nose, mouth and throat: Denies epistaxis, Denies nasal congestion, Denies nasal discharge, Denies post-nasal drip, Denies sinus pain, Denies sinus pressure, Denies sore throat Cardiovascular: Reports as per HPI Respiratory: Reports as per HPI Gastrointestinal: Denies abdominal pain, Denies diarrhea, Denies nausea, Denies vomiting Genitourinary: Denies dysuria, Denies flank pain, Denies hematuria, Denies urinary frequency Musculoskeletal: Denies limitation of motion Integumentary: Denies rash Neurological: Denies aphasia, Denies change in mentation, Denies confusion, Denies seizures, Denies syncope, Denies tremors, Denies visual changes Psychiatric: Denies anxiety, Denies depression Past Medical History Past Medical History: Heart Failure, Dialysis, Hyperlipidemia, Hypertension, Renal Disease Additional Past Medical History / Comment(s): gout, peritoneal dialysis History of Any Multi-Drug Resistant Organisms: None Reported Past Surgical History: Hernia Repair, Orthopedic Surgery Additional Past Surgical History / Comment(s): Right shoulder surgery, colonoscopy, arthroscopy rt knee, Fawad fundoplication, tumor removed from y[place], peritoneal dialysis catheter Past Anesthesia/Blood Transfusion Reactions: No Reported Reaction Additional Past Anesthesia/Blood Transfusion Reaction / Comment(s): "takes a little extra for me" Past Psychological History: No Psychological Hx Reported Smoking Status: Never smoker - Past Family History Father Family Medical History: Renal Disease Additional Family Medical History / Comment(s): Father at age 70 from a bowel aortic aneurysm rupture. He does have a history of kidney disease and was on dialysis. Mother Additional Family Medical History / Comment(s): Mother is alive with no major medical problems. Sister(s) Additional Family Medical History / Comment(s): Patient has one sister with history of hypertension. Patient does not have any brothers. Patient has 3 children with no major medical problems. Medications and Allergies Home Medications Medication Instructions Recorded Confirmed Type carvediloL [Coreg] 25 mg PO BID 08/13/23 05/27/24 History Aspirin EC [Ecotrin Low Dose] 81 mg PO DAILY #30 tab 08/16/23 05/27/24 Rx Empagliflozin [Jardiance] 10 mg PO DAILY 01/31/24 05/27/24 History Furosemide [Lasix] 40 mg PO DIRECTED PRN 01/31/24 05/27/24 History Sacubitril/Valsartan [Entresto 49 1 each PO DIRECTED 01/31/24 05/27/24 History mg-51 mg Tablet] amLODIPine [Norvasc] 10 mg PO DAILY 01/31/24 05/27/24 History calcitrioL [Rocaltrol (GEQ)] 0.5 mcg PO DAILY 02/04/24 05/27/24 History oxyCODONE HCL [OxyIR] 5 mg PO Q6H PRN 3 Days #6 tab 02/04/24 05/27/24 Rx Allergies Allergy/AdvReac Type Severity Reaction Status Date / Time lisinopril AdvReac kidney Verified 09/09/24 00:58 damage Penicillins AdvReac "doesn't Verified 09/09/24 00:58 do anything for me" Physical Exam Vitals: Vital Signs Temp Pulse Resp BP Pulse Ox 09/09/24 01:45 188/109 09/09/24 01:27 85 18 09/09/24 01:00 202/122 09/09/24 00:55 97.3 F L 95 22 214/136 96 Intake and Output 09/08/24 09/08/24 09/09/24 14:59 22:59 06:59 Other: Weight 86.183 kg GENERAL EXAM: Alert, 53-year-old male, fairly comfortable in no apparent distress. HEAD: Normocephalic and atraumatic EYES: Normal reaction of pupils, equal size. NOSE: Clear with pink turbinates. THROAT: No erythema or exudates. NECK: No masses, no JVD. CHEST: No chest wall deformity. LUNGS: Equal air entry with diminished bibasilar lung sounds. On room air. No conversational dyspnea or accessory muscle use while the rest CVS: S1 and S2 normal with soft systolic murmur, regular rhythm. No other extra heart sounds ABDOMEN: Nondistended, active bowel sounds, soft without hepatosplenomegaly or guarding/rigidity. PD catheter secured to abdomen SPINE: No scoliosis or deformity SKIN: No rashes CENTRAL NERVOUS SYSTEM: No focal deficits, tone is normal in all 4 extremities. EXTREMITIES: There is no peripheral edema, clubbing, or cyanosis. Peripheral pulses are intact. Results - Laboratory Findings CBC and BMP: 09/09/24 01:13 09/09/24 01:13 PT/INR, D-dimer PT 11.1 sec (10.0-12.5) 09/09/24 01:13 INR 1.0 (<1.2) 09/09/24 01:13 Abnormal lab findings: Abnormal Labs 09/09/24 09/09/24 09/09/24 01:13 01:13 01:13 WBC 11.73 H RBC 3.65 L Hgb 10.4 L Hct 30.8 L Neutrophils # 7.99 H Monocytes # 1.31 H Eosinophils # 0.54 H Carbon Dioxide 15 L BUN 73 H Creatinine 16.03 H* Calcium 8.0 L Troponin I 0.328 H* - Diagnostic Findings Chest x-ray: image reviewed Assessment and Plan Assessment: Recurrent right-sided pleural effusion, previously underwent right-sided thoracentesis on 05/22/2024 and 05/27/2024. Pleural fluid historically translated. Acute dyspnea, secondary to above Hypertensive urgency Elevated troponins, likely secondary to type II IN History of nonischemic cardiomyopathy with previously reduced ejection fraction History of hyperlipidemia End-stage renal disease, maintained on peritoneal dialysis on outpatient basis Anion gap metabolic acidosis, secondary to above Anemia of chronic disease History of gout Plan: Patient's medications, labs, chest x-ray reviewed Pulmonary consultation was placed chiefly for right-sided pleural effusion Obtain chest ultrasound with markings for possible thoracentesis on the right Hypertensive urgency treated in the ED with 20 mg IV push labetalol x 2 Give additional dose of labetalol 20 mg IV push, restart home antihypertensives once verified, consult cardiology Recommend follow-up transthoracic echocardiogram if more recent study not available Patient reportedly not anuric, give additional dose of Lasix Nephrology consulted to manage patient's PD We will continue to follow, additional recommendations will be forthcoming I have personally seen and examined the patient, performed the documentation and the assessment and plan as written. Number of minutes spent on the visit:20 This dictation was produced using [employer] dictation software please excuse grammatical errors Time with Patient: Greater than 30
[2024-09-09] MEDS: carvediloL 12.5 MG TAB PO SCH (05:33)
[2024-09-09] MEDS: amLODIPine 10 MG TAB PO SCH (05:33)
--- NOTE | 2024-09-09 07:15 | US ---
EXAMINATION TYPE: US chest DATE OF EXAM: 09/09/2024 COMPARISON: Radiograph same day CLINICAL INDICATION: Male, 53 years old with history of right pleural effusion with markings; Effusio n Right TECHNIQUE: Grayscale imaging of the chest. Targeted ultrasound of the posterior lower right hemithor ax FINDINGS: EXAM MEASUREMENTS: Right Pleural Effusion pocket size: 14.1 cm Right skin surface to fluid distance: 4.3 cm Right side marked for possible thoracentesis outside the dept. Pulmonologists are able to review the images in the patient?s EMR. IMPRESSIONS: Moderate to large right pleural effusion with marking performed. [facility], Workstation: [email or web address], 09/09/2024 7:13 AM
[2024-09-09] MEDS ORDERED: carvediloL 12.5 MG TAB PO ONE (08:15)
[2024-09-09] MEDS: DIALYSIS (PERIT 2.5%) 2,000 ML 50 G/2,000 ML BAG INTRAPERIT SCH (08:26)
[2024-09-09] MEDS: carvediloL 12.5 MG TAB PO ONE (09:21)
[2024-09-09] MEDS: ASPIRIN 81 MG PO SCH (09:22)
[2024-09-09] MEDS: FUROSEMIDE 40 MG TAB PO SCH (09:29)
--- NOTE | 2024-09-09 09:37 | XR ---
EXAMINATION TYPE: XR chest 1V portable DATE OF EXAM: 09/09/2024 9:30 AM COMPARISON: 09/09/2024 CLINICAL INDICATION: Male, 53 years old with history of S/P right thoracentesis, , FINDINGS: Heart mildly enlarged. Interstitial/vascular prominence remains. There is decreased, now small residu al right pleural effusion. No appreciable pneumothorax. IMPRESSION: 1. Decreased, now small residual right pleural effusion following thoracentesis. No appreciable pneum othorax. 2. There may be some underlying mild CHF with pulmonary vascular congestion. Clinically correlate. [facility], Workstation: [email or web address], 09/09/2024 9:35 AM
[2024-09-09 09:50] LABS: Total Protein 6.5 g/dL (6.3-8.2)
--- NOTE | 2024-09-09 10:24 | P.NPCON ---
History of Present Illness - Reason for Consult end stage renal disease - History of Present Illness Reason for consultation: End-stage renal disease History of present illness: Patient is a 53-year-old male seen in renal consultation for end-stage renal disease. Patient was seen and examined in the emergency room. He is maintained on peritoneal dialysis. Patient came to the hospital due to shortness of breath. He is noted to have a right-sided pleural effusion which is recurrent in nature. He has required thoracentesis for the same in the past. Patient states he has been doing peritoneal dialysis but has noticed minimal ultrafiltration. He denies cloudy dialysate. No abdominal pain. No fever or chills. Denies chest pain. He does make urine. No vomiting or diarrhea. Denies history of diabetes or coronary artery disease. Vital signs are stable. General: No acute distress. HEENT: Head exam is unremarkable. LUNGS: No audible rhonchi or wheezes. HEART: Rate and Rhythm are regular. ABDOMEN: Nontender. EXTREMITITES: No edema. Past Medical History Past Medical History: Heart Failure, Dialysis, Hyperlipidemia, Hypertension, Renal Disease Additional Past Medical History / Comment(s): gout, peritoneal dialysis History of Any Multi-Drug Resistant Organisms: None Reported Past Surgical History: Hernia Repair, Orthopedic Surgery Additional Past Surgical History / Comment(s): Right shoulder surgery, colonoscopy, arthroscopy rt knee, Fawad fundoplication, tumor removed from back, peritoneal dialysis catheter Past Anesthesia/Blood Transfusion Reactions: No Reported Reaction Additional Past Anesthesia/Blood Transfusion Reaction / Comment(s): "takes a little extra for me" Past Psychological History: No Psychological Hx Reported Smoking Status: Never smoker - Past Family History Father Family Medical History: Renal Disease Additional Family Medical History / Comment(s): Father at age 70 from a bowel aortic aneurysm rupture. He does have a history of kidney disease and was on dialysis. Mother Additional Family Medical History / Comment(s): Mother is alive with no major medical problems. Sister(s) Additional Family Medical History / Comment(s): Patient has one sister with history of hypertension. Patient does not have any brothers. Patient has 3 children with no major medical problems. Medications and Allergies Home Medications Medication Instructions Recorded Confirmed Type carvediloL [Coreg] 25 mg PO BID 08/13/23 05/27/24 History Aspirin EC [Ecotrin Low Dose] 81 mg PO DAILY #30 tab 08/16/23 05/27/24 Rx Empagliflozin [Jardiance] 10 mg PO DAILY 01/31/24 05/27/24 History Furosemide [Lasix] 40 mg PO DIRECTED PRN 01/31/24 05/27/24 History Sacubitril/Valsartan [Entresto 49 1 each PO DIRECTED 01/31/24 05/27/24 History mg-51 mg Tablet] amLODIPine [Norvasc] 10 mg PO DAILY 01/31/24 05/27/24 History calcitrioL [Rocaltrol (GEQ)] 0.5 mcg PO DAILY 02/04/24 05/27/24 History oxyCODONE HCL [OxyIR] 5 mg PO Q6H PRN 3 Days #6 tab 02/04/24 05/27/24 Rx Allergies Allergy/AdvReac Type Severity Reaction Status Date / Time lisinopril AdvReac kidney Verified 09/09/24 00:58 damage Penicillins AdvReac "doesn't Verified 09/09/24 00:58 do anything for me" Physical Exam Vitals: Vital Signs Temp Pulse Resp BP Pulse Ox 09/09/24 08:28 97.7 F 79 20 188/107 09/09/24 06:06 81 18 189/96 98 09/09/24 05:00 184/115 09/09/24 04:00 77 20 192/109 09/09/24 03:00 76 20 184/103 09/09/24 01:45 188/109 09/09/24 01:27 85 18 09/09/24 01:00 202/122 09/09/24 00:55 97.3 F L 95 22 214/136 96 Intake and Output 09/08/24 09/09/24 09/09/24 22:59 06:59 14:59 Other: Weight 86.183 kg Results - Lab Results Most recent lab results Calcium 8.0 mg/dL (8.4-10.2) L 09/09/24 01:13 Magnesium 2.2 mg/dL (1.6-2.3) 09/09/24 01:13 09/09/24 01:13 09/09/24 01:13 Assessment and Plan Plan: Assessment: 1. End-stage renal disease maintained on peritoneal dialysis. 2. Hypertension with chronic kidney disease. 3. Recurrent right-sided pleural effusion. Concern for hydrothorax. 4. Chronic kidney disease mineral bone disease. 5. Anemia of chronic kidney disease. 6. Metabolic acidosis secondary to chronic kidney disease. Plan: Resume PD exchanges with 2 L every 6 hours or 2.5% dextrose solution. Thoracentesis to be done today. Check glucose level and the fluid. Discussed with pulmonology. Add oral bicarb. Home antihypertensives resumed. Discussed with patient at length that due to recurrent effusions, potentially hydrothorax, it would be best to transition to hemodialysis. Patient adamantly refuses hemodialysis and only wants to continue with peritoneal dialysis for now. 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 Thank you for the consultation. I will continue to follow the patient with you during his hospital stay.
[2024-09-09] MEDS: SACUBITRIL/VALSARTAN 49 MG-51 MG TABLET PO SCH (10:33)
[2024-09-09 10:36] VITALS: RESP 18
[2024-09-09] MEDS: SODIUM BICARBONATE TAB 650 MG TAB PO SCH (10:43)
--- NOTE | 2024-09-09 11:09 | P.HPIM ---
History of Present Illness Patient is a pleasant 52-year-old male came with complaints of shortness of breath found to have a right-sided pleural effusion.. Patient is on peritoneal dialysis. Patient was advised multiple times in the past to go on hemodialysis here which he declined because he is really active and does not want to go to hemodialysis every alternate day for 3 to 4 hours. Patient also has congestive heart failure history with EF of around 35% patient has mild elevated troponin secondary to renal failure patient denied any chest pain at this time. Patient does take Lasix on as-needed basis 40 mg. Patient was started on bicarbonate drip and patient had a paracentesis today with removal of 2.5 L of fluid patient clinically looks well not in heart failure exacerbation not volume overloaded at this time patient's proBNP is 40,100 chest x-ray showed moderate pleural effusion shift. Creatinine is 16 REVIEW OF SYSTEMS: All other systems are negative except those mentioned in the HPI PHYSICAL EXAMINATION: GENERAL: The patient is alert and oriented x3, not in any acute distress. Well developed, well nourished. HEENT: Pupils are round and equally reacting to light. EOMI. No scleral icterus. No conjunctival pallor. Normocephalic, atraumatic. No pharyngeal erythema. No thyromegaly. CARDIOVASCULAR: S1 and S2 present. No murmurs, rubs, or gallops. PULMONARY: Chest is clear to auscultation, no wheezing or crackles. ABDOMEN: Soft, nontender, nondistended, normoactive bowel sounds. No palpable organomegaly. MUSCULOSKELETAL: No joint swelling or deformity. EXTREMITIES: No cyanosis, clubbing, or pedal edema. NEUROLOGICAL: Gross neurological examination did not reveal any focal deficits. SKIN: No rashes. Assessment and plan -Volume overload secondary to congestive heart failure as well as end-stage renal disease, pleural effusion resolved patient volume status is euvolemic at this time. Patient to be discharged today - Right-sided pleural effusion due to assessment above. - End-stage renal disease peritoneal dialysis dependent patient was instructed to be hemodialysis although patient declines to be on hemodialysis at this time patient may end up needing that eventually. - Congestive heart failure chronic systolic function EF of around 35% had pleural effusion but otherwise not in acute exacerbation euvolemic at this time. Patient has nonischemic cardiomyopathy - Uncontrolled elevated blood pressures presently fairly controlled at this time. - Anemia chronic kidney disease - Metabolic acidosis chronic from chronic kidney disease patient is on bicarbonate supplementation - History of gout Patient will be discharged today. Past Medical History Past Medical History: Heart Failure, Dialysis, Hyperlipidemia, Hypertension, Renal Disease Additional Past Medical History / Comment(s): gout, peritoneal dialysis History of Any Multi-Drug Resistant Organisms: None Reported Past Surgical History: Hernia Repair, Orthopedic Surgery Additional Past Surgical History / Comment(s): Right shoulder surgery, colonoscopy, arthroscopy rt knee, Fawad fundoplication, tumor removed from back, peritoneal dialysis catheter Past Anesthesia/Blood Transfusion Reactions: No Reported Reaction Additional Past Anesthesia/Blood Transfusion Reaction / Comment(s): "takes a little extra for me" Past Psychological History: No Psychological Hx Reported Smoking Status: Never smoker - Past Family History Father Family Medical History: Renal Disease Additional Family Medical History / Comment(s): Father at age 70 from a bowel aortic aneurysm rupture. He does have a history of kidney disease and was on dialysis. Mother Additional Family Medical History / Comment(s): Mother is alive with no major medical problems. Sister(s) Additional Family Medical History / Comment(s): Patient has one sister with history of hypertension. Patient does not have any brothers. Patient has 3 children with no major medical problems. Medications and Allergies Home Medications Medication Instructions Recorded Confirmed Type carvediloL [Coreg] 25 mg PO BID 08/13/23 05/27/24 History Aspirin EC [Ecotrin Low Dose] 81 mg PO DAILY #30 tab 08/16/23 05/27/24 Rx Empagliflozin [Jardiance] 10 mg PO DAILY 01/31/24 05/27/24 History Sacubitril/Valsartan [Entresto 49 1 each PO DIRECTED 01/31/24 05/27/24 History mg-51 mg Tablet] amLODIPine [Norvasc] 10 mg PO DAILY 01/31/24 05/27/24 History calcitrioL [Rocaltrol (GEQ)] 0.5 mcg PO DAILY 02/04/24 05/27/24 History oxyCODONE HCL [OxyIR] 5 mg PO Q6H PRN 3 Days #6 tab 02/04/24 05/27/24 Rx Furosemide [Lasix] 40 mg PO DAILY PRN #0 09/09/24 05/27/24 Rx Sodium Bicarbonate Tab 650 mg PO BID #30 tab 09/09/24 Rx Allergies Allergy/AdvReac Type Severity Reaction Status Date / Time lisinopril AdvReac kidney Verified 09/09/24 00:58 damage Penicillins AdvReac "doesn't Verified 09/09/24 00:58 do anything for me" Physical Exam Vitals: Vital Signs Temp Pulse Resp BP Pulse Ox 09/09/24 10:34 72 18 152/93 95 09/09/24 08:28 97.7 F 79 20 188/107 09/09/24 06:06 81 18 189/96 98 09/09/24 05:00 184/115 09/09/24 04:00 77 20 192/109 09/09/24 03:00 76 20 184/103 09/09/24 01:45 188/109 09/09/24 01:27 85 18 09/09/24 01:00 202/122 09/09/24 00:55 97.3 F L 95 22 214/136 96 Intake and Output 09/08/24 09/09/24 09/09/24 22:59 06:59 14:59 Other: Weight 86.183 kg Results CBC & Chem 7: 09/09/24 01:13 09/09/24 01:13 Labs: Abnormal Lab Results - Last 24 Hours (Table) 09/09/24 09/09/24 09/09/24 Range/Units 01:13 01:13 01:13 WBC 11.73 H (4.50-10.00) 10*3/uL RBC 3.65 L (4.40-5.60) 10*6/uL Hgb 10.4 L (13.0-17.0) g/dL Hct 30.8 L (39.6-50.0) % Neutrophils # 7.99 H (1.80-7.70) 10*3/uL Monocytes # 1.31 H (0.20-1.00) 10*3/uL Eosinophils # 0.54 H (0.04-0.35) 10*3/uL Carbon Dioxide 15 L (22-30) mmol/L BUN 73 H (9-20) mg/dL Creatinine 16.03 H* (0.66-1.25) mg/dL Calcium 8.0 L (8.4-10.2) mg/dL Lactate Dehydrogenase (120-246) U/L Troponin I 0.328 H* (0.000-0.034) ng/mL 09/09/24 Range/Units 09:28 WBC (4.50-10.00) 10*3/uL RBC (4.40-5.60) 10*6/uL Hgb (13.0-17.0) g/dL Hct (39.6-50.0) % Neutrophils # (1.80-7.70) 10*3/uL Monocytes # (0.20-1.00) 10*3/uL Eosinophils # (0.04-0.35) 10*3/uL Carbon Dioxide (22-30) mmol/L BUN (9-20) mg/dL Creatinine (0.66-1.25) mg/dL Calcium (8.4-10.2) mg/dL Lactate Dehydrogenase 290 H (120-246) U/L Troponin I (0.000-0.034) ng/mL
--- NOTE | 2024-09-09 11:10 | P.DS ---
Providers Date of admission: 09/09/24 02:55 Attending physician: Etienne Sousa Consults: 09/09/24 02:54 Consult Physician Routine Consulting Provider: Santy Soto Consult Reason/Comments: effusion Do you want consulting provider notified?: Yes Consult Physician Routine Consulting Provider: Wilber Jeter Consult Reason/Comments: CKD Do you want consulting provider notified?: Yes 09/09/24 04:30 Consult Physician Urgent Consulting Provider: Aurelio Osuna Consult Reason/Comments: hypertensive urgency Do you want consulting provider notified?: Yes Primary care physician: Guadaluperazia Gregory [facility] Course: Patient is a pleasant 52-year-old male came with complaints of shortness of breath found to have a right-sided pleural effusion.. Patient is on peritoneal dialysis. Patient was advised multiple times in the past to go on hemodialysis here which he declined because he is really active and does not want to go to hemodialysis every alternate day for 3 to 4 hours. Patient also has congestive heart failure history with EF of around 35% patient has mild elevated troponin secondary to renal failure patient denied any chest pain at this time. Patient does take Lasix on as-needed basis 40 mg. Patient was started on bicarbonate drip and patient had a paracentesis today with removal of 2.5 L of fluid patient clinically looks well not in heart failure exacerbation not volume overloaded at this time patient's proBNP is 40,100 chest x-ray showed moderate pleural effusion shift. Creatinine is 16 REVIEW OF SYSTEMS: All other systems are negative except those mentioned in the HPI PHYSICAL EXAMINATION: GENERAL: The patient is alert and oriented x3, not in any acute distress. Well developed, well nourished. HEENT: Pupils are round and equally reacting to light. EOMI. No scleral icterus. No conjunctival pallor. Normocephalic, atraumatic. No pharyngeal erythema. No thyromegaly. CARDIOVASCULAR: S1 and S2 present. No murmurs, rubs, or gallops. PULMONARY: Chest is clear to auscultation, no wheezing or crackles. ABDOMEN: Soft, nontender, nondistended, normoactive bowel sounds. No palpable organomegaly. MUSCULOSKELETAL: No joint swelling or deformity. EXTREMITIES: No cyanosis, clubbing, or pedal edema. NEUROLOGICAL: Gross neurological examination did not reveal any focal deficits. SKIN: No rashes. Assessment and plan -Volume overload secondary to congestive heart failure as well as end-stage renal disease, pleural effusion resolved patient volume status is euvolemic at this time. Patient to be discharged today - Right-sided pleural effusion due to assessment above. - End-stage renal disease peritoneal dialysis dependent patient was instructed to be hemodialysis although patient declines to be on hemodialysis at this time patient may end up needing that eventually. - Congestive heart failure chronic systolic function EF of around 35% had pleural effusion but otherwise not in acute exacerbation euvolemic at this time. Patient has nonischemic cardiomyopathy - Uncontrolled elevated blood pressures presently fairly controlled at this time. - Anemia chronic kidney disease - Metabolic acidosis chronic from chronic kidney disease patient is on bicarbonate supplementation - History of gout Patient will be discharged today. Patient Condition at Discharge: Serious Plan - Discharge Summary New Discharge Prescriptions: New Sodium Bicarbonate Tab 650 mg PO BID #30 tab Changed Furosemide [Lasix] 40 mg PO DAILY PRN #0 PRN Reason: Fluid Retention No Action carvediloL [Coreg] 25 mg PO BID Empagliflozin [Jardiance] 10 mg PO DAILY oxyCODONE HCL [OxyIR] 5 mg PO Q6H PRN 3 Days #6 tab PRN Reason: Breakthrough Pain Aspirin EC [Ecotrin Low Dose] 81 mg PO DAILY #30 tab amLODIPine [Norvasc] 10 mg PO DAILY Sacubitril/Valsartan [Entresto 49 mg-51 mg Tablet] 1 each PO DIRECTED calcitrioL [Rocaltrol (GEQ)] 0.5 mcg PO DAILY Discharge Medication List carvediloL [Coreg] 25 mg PO BID 08/13/23 [History] Aspirin EC [Ecotrin Low Dose] 81 mg PO DAILY #30 tab 08/16/23 [Rx] Empagliflozin [Jardiance] 10 mg PO DAILY 01/31/24 [History] Sacubitril/Valsartan [Entresto 49 mg-51 mg Tablet] 1 each PO DIRECTED 01/31/24 [History] amLODIPine [Norvasc] 10 mg PO DAILY 01/31/24 [History] calcitrioL [Rocaltrol (GEQ)] 0.5 mcg PO DAILY 02/04/24 [History] oxyCODONE HCL [OxyIR] 5 mg PO Q6H PRN 3 Days #6 tab 02/04/24 [Rx] Furosemide [Lasix] 40 mg PO DAILY PRN #0 09/09/24 [Rx] Sodium Bicarbonate Tab 650 mg PO BID #30 tab 09/09/24 [Rx] Follow up Appointment(s)/Referral(s): Karla Fitzpatrick MD [STAFF PHYSICIAN] - 1 Week Guadalupe Gregory DO [Primary Care Provider] - 1-2 Days Discharge Disposition: HOME SELF-CARE
--- NOTE | 2024-09-09 12:45 | P.CRDCN ---
History of Present Illness Consult date: 09/09/24 Reason for Consult (text): Hypertensive urgency History of present illness: This is a 53-year-old male patient follows with a harness brusher at [facility] with past medical history of nonischemic cardiomyopathy with EF 35%, chronic systolic heart failure, hypertension, hyperlipidemia, end-stage renal disease on peritoneal dialysis, recurrent right-sided pleural effusion status post multiple thoracentesis. We have been asked to evaluate patient for hypertensive urgency. Patient states that he has been continued on peritoneal dialysis. He came to the hospital due to shortness of breath and was found to have right sided pleural effusion which is recurrent and has had multiple thoracentesis in the past. He denies fever or chills. No chest pain. Patient presented to the hospital with a blood pressure of 214/136. Blood pressure 188/107, heart rate in the 70s and 80s, pulse ox 98% on room air. Patient is seen today in the emergency center waiting for a bed on the cardiac stepdown unit. -EKG: Sinus rhythm with LVH. -Chest x-ray: Moderate right pleural effusion. Repeat reveals decreased now small residual right pleural effusion following thoracentesis. -Laboratory studies: WBC 11.7, hemoglobin 10.4, BUN 73 and creatinine 16, tr oponin 0.328. proBNP 40,100. Cepheid viral panel not detected. -Home cardiac medications: Amlodipine 10 mg daily, aspirin 81 mg daily, atorvastatin 20 mg at bedtime, Coreg 25 mg twice daily, Lasix 40 mg daily and as needed, hydralazine 25 mg as directed, Entresto 49-51 mg twice daily. -Cardiac catheterization performed 02/20/2023 at [facility] revealed right dominant system, no obstructive coronary artery disease. Review Of Systems: At the time of my exam: CONSTITUTIONAL: Denies fever or chills. HEENT: Denies blurred vision, vision changes, or eye pain. Denies hemoptysis CARDIOVASCULAR: Denies chest pain. Denies orthopnea. Denies PND. Denies palpitations RESPIRATORY: Denies shortness of breath. GASTROINTESTINAL: Denies abdominal pain. Denies nausea or vomiting. HEMATOLOGIC: Denies bleeding disorders. GENITOURINARY: Denies any blood in urine. SKIN: Denies puritis. Denies rash. Physical examination: Gen: This is a 53-year-old male in no acute distress VS: reviewed HEENT: Head is atraumatic, normocephalic. Pupils equal, round. Sclerae is anicteric. NECK: Supple. No JVD. LUNGS: Decreased breath sounds on the right. No intercostal retractions. HEART: Regular rate and rhythm. No murmur. ABDOMEN: Soft No tenderness. EXTREMITIES: No pedal edema. No calf tenderness. NEUROLOGICAL: Patient is awake, alert and oriented x3. Assessment: Hypertensive urgency Idiopathic cardiomyopathy with EF 35% Chronic systolic heart failure Hypertension Hyperlipidemia End-stage renal disease on peritoneal dialysis Recurrent right sided pleural effusion status post multiple thoracentesis status post thoracentesis / Plan: Resume patient's home cardiac medications: Amlodipine 10 mg daily, aspirin 81 mg daily, atorvastatin 40 mg at bedtime, Coreg increased to 50 mg twice daily, Entresto 49-51 mg twice daily Hold hydralazine Monitor blood pressure Thank you kindly for this consultation. Nurse practitioner note has been reviewed, I agree with documented findings and plan of care. Patient was seen and examined. Past Medical History Past Medical History: Heart Failure, Dialysis, Hyperlipidemia, Hypertension, Renal Disease Additional Past Medical History / Comment(s): gout, peritoneal dialysis History of Any Multi-Drug Resistant Organisms: None Reported Past Surgical History: Hernia Repair, Orthopedic Surgery Additional Past Surgical History / Comment(s): Right shoulder surgery, colonoscopy, arthroscopy rt knee, Fawad fundoplication, tumor removed from back, peritoneal dialysis catheter Past Anesthesia/Blood Transfusion Reactions: No Reported Reaction Additional Past Anesthesia/Blood Transfusion Reaction / Comment(s): "takes a little extra for me" Past Psychological History: No Psychological Hx Reported Smoking Status: Never smoker - Past Family History Father Family Medical History: Renal Disease Additional Family Medical History / Comment(s): Father at age 70 from a bowel aortic aneurysm rupture. He does have a history of kidney disease and was on dialysis. Mother Additional Family Medical History / Comment(s): Mother is alive with no major medical problems. Sister(s) Additional Family Medical History / Comment(s): Patient has one sister with history of hypertension. Patient does not have any brothers. Patient has 3 children with no major medical problems. Medications and Allergies Home Medications Medication Instructions Recorded Confirmed Type carvediloL [Coreg] 25 mg PO BID 08/13/23 09/09/24 History Aspirin EC [Ecotrin Low Dose] 81 mg PO DAILY #30 tab 08/16/23 09/09/24 Rx Empagliflozin [Jardiance] 10 mg PO DAILY 01/31/24 09/09/24 History Sacubitril/Valsartan [Entresto 49 1 tab PO BID 01/31/24 09/09/24 History mg-51 mg Tablet] amLODIPine [Norvasc] 10 mg PO DAILY 01/31/24 09/09/24 History calcitrioL [Rocaltrol (GEQ)] 0.5 mcg PO DAILY 02/04/24 09/09/24 History Acetaminophen [Tylenol] 650 mg PO Q6H PRN 09/09/24 09/09/24 History Atorvastatin [Lipitor] 20 mg PO HS 09/09/24 09/09/24 History Cetirizine HCl [Zyrtec] 10 mg PO DAILY 09/09/24 09/09/24 History Docusate [Colace] 100 mg PO DAILY PRN 09/09/24 09/09/24 History Furosemide [Lasix] 40 mg PO DAILY 09/09/24 09/09/24 History Furosemide [Lasix] 40 mg PO DAILY PRN #0 09/09/24 05/27/24 Rx Magnesium Oxide [Mag-Ox] 400 mg PO DAILY 09/09/24 09/09/24 History Sodium Bicarbonate Tab 650 mg PO BID 09/09/24 09/09/24 History Sodium Bicarbonate Tab 650 mg PO BID #30 tab 09/09/24 Rx Tums E-X 750mg 1,500 mg PO DAILY PRN 09/09/24 09/09/24 History Tums E-X 750mg 2,250 mg PO AC-TID 09/09/24 09/09/24 History allopurinoL [Zyloprim] 300 mg PO DAILY PRN 09/09/24 09/09/24 History hydrALAZINE HCL [Apresoline] 25 mg PO DIRECTED 09/09/24 09/09/24 History Allergies Allergy/AdvReac Type Severity Reaction Status Date / Time lisinopril AdvReac kidney Verified 09/09/24 12:18 damage Penicillins AdvReac "doesn't Verified 09/09/24 12:18 do anything for me" Physical Exam Vitals: Vital Signs Temp Pulse Resp BP Pulse Ox 09/09/24 06:06 81 18 189/96 98 09/09/24 05:00 184/115 09/09/24 04:00 77 20 192/109 09/09/24 03:00 76 20 184/103 09/09/24 01:45 188/109 09/09/24 01:27 85 18 09/09/24 01:00 202/122 09/09/24 00:55 97.3 F L 95 22 214/136 96 Intake and Output 09/08/24 09/09/24 09/09/24 22:59 06:59 14:59 Other: Weight 86.183 kg Results 09/09/24 01:13 09/09/24 01:13 Cardiac Enzymes 09/09/24 09/09/24 Range/Units 01:13 01:13 AST 28 (17-59) U/L Troponin I 0.328 H* (0.000-0.034) ng/mL Coagulation 09/09/24 Range/Units 01:13 PT 11.1 (10.0-12.5) sec APTT 25.9 (22.0-30.0) sec CBC 09/09/24 Range/Units 01:13 WBC 11.73 H (4.50-10.00) 10*3/uL RBC 3.65 L (4.40-5.60) 10*6/uL Hgb 10.4 L (13.0-17.0) g/dL Hct 30.8 L (39.6-50.0) % Plt Count 328 (140-440) 10*3/uL Comprehensive Metabolic Panel 09/09/24 Range/Units 01:13 Sodium 138 (137-145) mmol/L Potassium 5.1 (3.5-5.1) mmol/L Chloride 104 (98-107) mmol/L Carbon Dioxide 15 L (22-30) mmol/L BUN 73 H (9-20) mg/dL Creatinine 16.03 H* (0.66-1.25) mg/dL Glucose 80 (74-99) mg/dL Calcium 8.0 L (8.4-10.2) mg/dL AST 28 (17-59) U/L ALT 28 (4-49) U/L Alkaline Phosphatase 60 (38-126) U/L Total Protein 6.3 (6.3-8.2) g/dL Albumin 3.6 (3.5-5.0) g/dL Current Medications Generic Name Dose Route Start Last Admin Trade Name Ferchoq PRN Reason Stop Dose Admin Amlodipine Besylate 10 mg 09/09/24 04:31 09/09/24 05:33 Amlodipine 10 Mg Tab PO 10 mg DAILY [facility] Administration Aspirin 81 mg 09/09/24 09:00 Aspirin 81 Mg PO DAILY [facility] Atorvastatin Calcium 40 mg 09/09/24 21:00 Atorvastatin 40 Mg Tab PO HS [facility] Calcitriol 0.5 mcg 09/09/24 09:00 Calcitriol 0.25 Mcg Cap PO DAILY [facility] Carvedilol 12.5 mg 09/09/24 08:15 Carvedilol 12.5 Mg Tab PO 09/09/24 08:16 ONCE ONE Carvedilol 50 mg 09/09/24 08:15 Carvedilol 12.5 Mg Tab PO BID-W/MEALS [facility] Furosemide 40 mg 09/09/24 09:00 Furosemide 40 Mg Tab PO DAILY [facility] Peritoneal Dialysis Solution 50 g in 2,000 mls @ 0 mls/hr 09/09/24 08:00 Delflex With 2.5% Dextrose (2,000 Ml) INTRAPERIT Q6H [facility] Protocol As Directed Morphine Sulfate 4 mg 09/09/24 02:54 Morphine Sulfate 4 Mg/Ml Syringe IV Q4HR PRN Severe Pain (Scale 7 to 10) Naloxone HCl 0.2 mg 09/09/24 02:54 Naloxone 0.4 Mg/Ml 1 Ml Vial IV Q2M PRN Opioid Reversal Ondansetron HCl 4 mg 09/09/24 02:54 Ondansetron 4 Mg/2 Ml Vial IVP Q8HR PRN Nausea And Vomiting Sacubitril/Valsartan 1 each 09/09/24 09:00 Sacubitril/Valsartan 49 Mg-51 Mg Tablet PO BID [facility] Intake and Output 09/08/24 09/09/24 09/09/24 22:59 06:59 14:59 Other: Weight 86.183 kg 09/09/24 01:13 09/09/24 01:13
[2024-09-09 13:27] VITALS: BP 147/85; PULSE 65; TEMP 97.5
[2024-09-09 15:26] LABS: Appearance,BF Clear (Clear)
[2024-09-09] MEDS ORDERED: carvediloL 12.5 MG TAB PO SCH ×2 (17:30)
[2024-09-09 18:38] LABS: Glucose, BF Source Pleural Fluid; Glucose, Body Fluid 125 mg/dL; LDH, Body Fluid Source Pleural Fluid; T. Protein, Body Fluid Source Pleural Fluid; Total Protein, Body Fluid 956 mg/dL
[2024-09-09] MEDS ORDERED: ATORVASTATIN 20 MG TAB PO SCH (21:00)
[2024-09-09] MEDS ORDERED: ATORVASTATIN 40 MG TAB PO SCH (21:00)
--- NOTE | 2024-09-10 16:36 | OP ---
OPERATIVE REPORT DATE OF SERVICE : PROCEDURE: Right-sided thoracentesis. PREOPERATIVE DIAGNOSIS: Right pleural effusion. POSTOPERATIVE DIAGNOSIS: Right pleural effusion. COMPENSATION ASSOCIATE: Dr. Helm. SECOND SUPERVISOR [employer]: Dr. Alexis. INDICATION: Pleural effusion. DESCRIPTION OF PROCEDURE: The patient's procedure was done in the emergency department, room 11. There was informed consent, universal timeout. A time-out was completed verifying correct patient, procedure, site, positioning , and implant (s) or special equipment if applicable. Ultrasound guidance was used and appropriate fluid pocket was identified and marked. Patient was positioned, prepped and draped in usual sterile fashion. Lidocaine was used to anesthetize the area. A Thoracentesis catheter was introduced into the pleural space and fluid was removed. Blood loss was none. A chest x-ray was ordered to evaluate for pneumothorax. We removed roughly 2.6 L of light yellow fluid from the right pleural space. The patient tolerated the procedure well. The fluid will be sent for analysis including cytology, chemistry, and microbiology. A portable stat chest x-ray was ordered. The posterior right chest was marked by ultrasound. There was no immediate complication. Again, the patient tolerated the procedure well without difficulty. MMODL / IJN: [id number] /
== END 2024-09-09 13:00 | disposition home or self-care (01) | DRG 186 ==
LOC: EC 00:54 → 5NMEDONC 02:55 → 3SCARD 04:22
PROVIDERS: ADMIT Hospitalist; ATTEND Hospitalist
PROC: 0W993ZZ Drainage of Right Pleural Cavity, Percutaneous Approach (ICD-10-PCS; principal; 2024-09-09)
DX: J90 Pleural effusion, not elsewhere classified (principal); I21.A1 Myocardial infarction type 2; N18.6 End stage renal disease; I13.2 Hypertensive heart and chronic kidney disease with heart failure and with stage 5 chronic kidney disease, or end stage renal disease; E87.20 Acidosis, unspecified; D63.1 Anemia in chronic kidney disease; Z99.2 Dependence on renal dialysis; I42.8 Other cardiomyopathies; I50.22 Chronic systolic (congestive) heart failure; I16.0 Hypertensive urgency; Z11.52 Encounter for screening for COVID-19; M10.9 Gout, unspecified; E78.5 Hyperlipidemia, unspecified; M89.8X9 Other specified disorders of bone, unspecified site; Z79.82 Long term (current) use of aspirin; Z79.84 Long term (current) use of oral hypoglycemic drugs; Z79.899 Other long term (current) drug therapy; Z82.49 Family history of ischemic heart disease and other diseases of the circulatory system; Z88.8 Allergy status to other drugs, medicaments and biological substances; Z88.0 Allergy status to penicillin; Z87.19 Personal history of other diseases of the digestive system
CPT/HCPCS: 36415; 71045; 76604; 80053; 82945; 83615; 83735; 83880; 84155; 84157; 84484; 85025; 85610; 85730; 87070; 87102; 87116; 87205; 87206; 87636; 88108; 88305; 89050; 93005; 96374; 96375; 96376; 99291

== ENCOUNTER 2024-10-29 10:51 | Day surgery (SDC) | payer MEDICARE, OTHER ==
--- NOTE | 2024-10-29 11:46 | US ---
EXAMINATION TYPE: US chest DATE OF EXAM: 10/29/2024 COMPARISON: Radiograph 10/16/2024 CLINICAL INDICATION: Male, 53 years old with history of J90 PLEURAL EFFUSION; rt effusion TECHNIQUE: Grayscale imaging of the chest. Targeted ultrasound of the posterior lower right hemithor ax FINDINGS: EXAM MEASUREMENTS: Right Pleural Effusion pocket size: 11.7 cm Right skin surface to fluid distance: 2.8 cm Right side marked for possible thoracentesis outside the dept. Pulmonologists are able to review the images in the patient?s EMR. IMPRESSIONS: Ongoing moderate right pleural effusion. [facility], , 10/29/2024 11:44 AM
[2024-10-29 12:02] VITALS: TEMP 97.6
[2024-10-29 12:49] VITALS: RESP 16
[2024-10-29 12:50] VITALS: BP 155/88; PULSE 65
--- NOTE | 2024-10-29 12:56 | XR ---
EXAMINATION TYPE: XR chest 1V DATE OF EXAM: 10/29/2024 12:33 PM COMPARISON: 09/09/2024 CLINICAL INDICATION: Male, 53 years old with history of post thoracentesis, TECHNIQUE: XR chest 1V view(s) obtained. FINDINGS: The heart size is normal. The pulmonary vasculature is normal. Mild right lower lobe infiltrate is present. Correlate for atelectasis. No pneumothorax is evident po st thoracentesis. IMPRESSION: 1. No pneumothorax postthoracentesis. 2. Mild atelectasis likely at the right base. [facility], , 10/29/2024 12:53 PM
--- NOTE | 2024-10-29 13:54 | OP ---
OPERATIVE REPORT DATE OF SERVICE : PROCEDURE: Right-sided thoracentesis. PREOPERATIVE DIAGNOSIS: Right pleural effusion. POSTOPERATIVE DIAGNOSIS: Right pleural effusion. DESCRIPTION OF PROCEDURE: The posterior chest was marked by ultrasound. The patient's procedure was done in room #1 [facility]. A time-out was completed verifying correct patient, procedure, site, positioning , and implant (s) or special equipment if applicable. Ultrasound guidance was used and appropriate fluid pocket was identified and marked. Patient was positioned, prepped and draped in usual sterile fashion. Lidocaine was used to anesthetize the area. A Thoracentesis catheter was introduced into the pleural space and fluid was removed. Blood loss was none. A chest x-ray was ordered to evaluate for pneumothorax. Total Fluid Removed: 400 mL of yellow fluid was removed from the right pleural space. Color of Fluid: Yellow. Fluid was not sent for appropriate laboratory tests. The patient tolerated the procedure well. A chest x-ray was ordered afterwards. The fluid will not be sent for analysis and had been analyzed in the past. The patient tolerated the procedure well without complication. There were no immediate concerns. A bandage was placed over the area where the thoracentesis was performed. There was informed consent, universal timeout. MMODL / IJN: [id number] / [id number]
== END 2024-10-29 13:19 | disposition home or self-care (01) ==
LOC: ORWHC2ENDO 10:51
PROVIDERS: ATTEND Internal Medicine Critical Care Medicine
DX: J90 Pleural effusion, not elsewhere classified (principal); E78.5 Hyperlipidemia, unspecified; I10 Essential (primary) hypertension; Z79.899 Other long term (current) drug therapy
CPT/HCPCS: 32555; 71045; 76604

== ENCOUNTER → 2024-10-29 | Outpatient (CLI) | payer MEDICARE, OTHER | END | disposition home or self-care (01) | LOC: RADUSWWP 10:56 | PROVIDERS: ATTEND Internal Medicine Critical Care Medicine | DX: Z53.9 Procedure and treatment not carried out, unspecified reason (principal) ==